=== PATIENT | male | born 1960 | race African-American/Black ===

== ENCOUNTER 2019-09-11 11:56 | Emergency (ER) | payer MEDICARE, MEDICAID, SELFPAY ==
[2019-09-11] VITALS (7 sets, daily range): BP systolic 127–152; BP diastolic 84–89; PULSE 47–59; RESP 10–20; TEMP 36–36.5; O2SAT 98–100
--- NOTE | ~2019-09-11 | XR_ITS ---
EXAMINATION: XR chest 1V portable DATE: 09/11/2019 12:20 INDICATION: Altered mental status TECHNIQUE: frontal view of the chest was obtained. COMPARISON: Chest radiograph dated 03/03/2019 FINDINGS: Lung volumes remain small. Mild bibasilar opacities increased since the prior study. No pleural effus ion or pneumothorax. The cardiomediastinal silhouette is normal. Mild to moderate thoracic spondylosi s. IMPRESSION: 1. Small lung volumes with increasing bibasilar opacities which could represent atelectasis, mild pul monary edema or pneumonia. Reviewed, dictated and finalized at location A. IMPRESSION: 1. Small lung volumes with increasing bibasilar opacities which could represent atelectasis, mild pulmonary edema or pneumonia.
--- NOTE | ~2019-09-11 | CT_ITS ---
EXAMINATION: CT brain wo con DATE: 09/11/2019 12:31 INDICATION: Altered mental status TECHNIQUE: Computed tomography (CT) of the head was performed without intravenous contrast. Sagittal and coronal reconstructions were performed. The mA was adjusted according to patient size. Iterative reconstruction technique was employed. The dose-length product was 605.33 mGy-cm. COMPARISON: None FINDINGS: No acute intracranial hemorrhage, acute infarction or abnormal extra axial fluid collection. Ventricl es are normal and symmetric. No mass/mass effect. Symmetric either atherosclerotic or age-related dys trophic calcifications at the the bilateral basal ganglia. The orbits, paranasal sinuses and mastoid air cells are normal. Intracranial calcified cerebral atherosclerosis is noted at the carotid siphons . IMPRESSION: 1. Normal aging brain. No acute intracranial process. Reviewed, dictated and finalized at location A.
--- NOTE | 2019-09-11 12:02 | ED.GENADULT ---
HPI - General Adult General Chief complaint: Unspecified <Souleymane Wang MD - Last Filed: 09/11/19 23:52> Stated complaint: unresponsive- catatonic schiz <Souleymane Wang MD - Last Filed: 09/11/19 23:52> Time Seen by Provider: 09/11/19 12:01 <Souleymane Wang MD - Last Filed: 09/11/19 23:52> Source: EMS and RN notes reviewed <Souleymane Wang MD - Last Filed: 09/11/19 23:52> Mode of arrival: EMS <Souleymane Wang MD - Last Filed: 09/11/19 23:52> Limitations: clinical condition <Souleymane Wang MD - Last Filed: 09/11/19 23:52> History of Present Illness HPI narrative: Pt is a 59 y/o male with a Hx of catatonic schizophrenia, who presents to the ED via EMS with c/o unresponsiveness. He is currently non-verbal while in the ED bed. HPI limited due to the pt's clinical condition. <Souleymane Wang MD - Last Filed: 09/11/19 23:52> MD complaint: Unresponsiveness <Souleymane Wang MD - Last Filed: 09/11/19 23:52> Onset (ago): unknown <Souleymane Wang MD - Last Filed: 09/11/19 23:52> Associated symptoms: other (unobtainable) <Souleymane Wang MD - Last Filed: 09/11/19 23:52> Related Data Allergies/adverse reactions: Allergies Allergy/AdvReac Type Severity Reaction Status Date / Time No Known Allergies Allergy Verified 09/11/19 13:01 <Souleymane Wang MD - Last Filed: 09/11/19 23:52> Review of Systems Review of Systems: ROS unobtainable: Yes other (Complete ROS unobtainable due to the pt's clinical condition.) <Souleymane Wang MD - Last Filed: 09/11/19 23:52> Neurologic: Reports other (unresponsiveness (per EMS)) <Souleymane Wang MD - Last Filed: 09/11/19 23:52> [facility] Past Medical History Medical History: Medical History Catatonic schizophrenia DM (diabetes mellitus) H/O: HTN (hypertension) Sepsis Shingles UTI (urinary tract infection) <Souleymane Wang MD - Last Filed: 09/11/19 23:52> Surgical History Surgical History: Surgical History No history of previous surgery <Souleymane Wang MD - Last Filed: 09/11/19 23:52> Social History Social History: Social History Smoking status: Unknown if ever smoked <Souleymane Wang MD - Last Filed: 09/11/19 23:52> Exam Narrative: Exam Narrative: GENERAL: Well-appearing, well-nourished, and in no acute distress. HEAD: Normocephalic, atraumatic. ENT: Mucous membranes moist. CHEST: Clear to auscultation. No respiratory distress. HEART: Bradycardic and regular. Normal peripheral pulses. ABDOMEN: Soft, nontender, nondistended. EXTREMITIES: Normal range of motion. Difficult to assess strength as pt will not follow commands. He does keep his arms in the air when they are lifted and he pulls his legs back from pain. SKIN: Warm, dry, no rash. Medication patch to the the left shoulder, right arm, and midline neck. Resolving shingles right chest wall with scabs. NEURO: Awake and alert, responds to pain. PSYCH: Catatonic, will not answer questions.. <Souleymane Wang MD - Last Filed: 09/11/19 23:52> Course Reevaluation(s) Reevaluation #1: Resting quitely in ED bed. Awaiting placement in inpatient psychiatric facility <Celso Suero MD - Last Filed: 09/12/19 05:58> Pt is awake, alert, conversant slightly, and tolerating oral intake. No acute distress. Continues to await crisis reassessment. <Shanae Whitley MD - Last Filed: 09/12/19 10:39> Date: 09/12/19 <Celso Suero MD - Last Filed: 09/12/19 05:58> 09/12/19 <Shanae Whitley MD - Last Filed: 09/12/19 10:39> Time: 05:58 <Celso Suero MD - Last Filed: 09/12/19 05:58> 08:00 <Shanae Whitley MD - Last Filed: 09/12/19 10:39> Reevaluation #2: Pt is awake, conversant, ambulatory in the ED. No thoughts
[2019-09-11 12:43] LABS: Basophils Percent Auto 0.4 % (0.2-1.2); Eosinophils Absolute Auto 0.1 K/mm3 (0-0.3); Eosinophils Percent Auto 1.1 % (0-4.4); Hematocrit 42.8 % (42.0-52.0); Hemoglobin 12.9 g/dL (14.0-18.0); Immature Granulocyte Absolute 0.02 K/mm3 (0.00-0.031); Immature Granulocyte Percent A 0.3 % (0-0.5); Lymphocytes Absolute Auto 2.41 K/mm3 (0.9-3.2); Lymphocytes Percent Auto 32.9 % (18.3-44.2); Mean Corpuscular HGB Conc 30.1 g/dl (32-36); Mean Corpuscular Hemoglobin 27.3 pg (26-34); Mean Corpuscular Volume 90.7 fl (80-100); Mean Platelet Volume 10.8 fl (7.4-10.4); Monocytes Absolute Auto 0.7 K/mm3 (0.1-0.6); Monocytes Percent Auto 10.1 % (2.6-8.5); Neutrophils Absolute Auto 4.1 K/mm3 (1.3-6.7); Neutrophils Percent Auto 55.2 % (45.5-73.1); Platelet Count Result 219 k/mm3 (150-375); Red Blood Count 4.72 M/mm3 (4.6-6.20); Red Cell Distribution Width 14.5 % (11.5-14.5); White Blood Count 7.3 K/mm3 (4.5-10.0)
[2019-09-11 12:46] LABS: Alanine Aminotransferase 11 U/L (4-50); Albumin Level 3.9 g/dL (3.5-5.1); Alkaline Phosphatase 54 U/L (38-126); Aspartate Amino Transferase 23 U/L (17-59); Bilirubin,Total 0.5 mg/dL (0.2-1.3); Blood Urea Nitrogen 26 mg/dL (9-20); Calcium 8.8 mg/dL (8.4-10.2); Carbon Dioxide 26 mmol/L (22-30); Chloride 103 mmol/L (98-107); Estimated CRCL calculation 89 ml/min; Estimated Glomerular Filt Rate > 60; Glucose 85 mg/dL (75-110); Potassium 4.1 mmol/L (3.4-5.0); Sodium 139 mmol/L (137-145)
[2019-09-11 12:55] LABS: Ethanol < 10 mg/dL (<10)
[2019-09-11 13:08] LABS: Add Urine Microscopic? YES; Appearance Urine Clear (Clear); Bilirubin Urine Negative (Negative); Blood Urine Negative (Negative); Color Urine Straw (Yellow); Glucose Urine UA Negative (Negative); Ketones Urine Negative (Negative); Leukocyte Esterase Ur Negative LEU/UL (Negative); Mucus Urine Rare /lpf; Nitrate Urine Negative (Negative); Protein Urine Negative (Negative); RBC Urine 0-2 /hpf (0-2); Specific Grav Ur 1.018 (1.001-1.035); Urobilinogen Urine Negative mg/dL (<2.0); WBC Urine 0-3 /hpf
[2019-09-11 13:32] LABS: Amphetamine Screen Urine Negative (Negative); Barbiturate Screen Urine Negative (Negative); Benzodiazepines Screen Urine Negative (Negative); Cannabinoid Screen Urine Negative (Negative); Cocaine Screen Urine Negative (Negative); Methadone Screen Urine Negative (Negative); Opiate Screen Urine Negative (Negative); Phencyclidine Screen Urine Negative (Negative)
[2019-09-11 13:37] LABS: NT Pro B Type Natriuretic Pept 535 PG/ML (5-100)
--- NOTE | 2019-09-11 14:37 | PC.NURSE ---
Pt more responsive. Able to follow my finger and track it appropriately. Nods yes or no answers but still is non verbal. When asked if he is able to speak, pt nods no . Able to move hands and wiggle toes on command as well but unable to raise them. Md notifed of pt status change.
--- NOTE | 2019-09-11 18:51 | PC.NURSE ---
Pt no longer responding to voice or physical stimulation. Eyes downcast and not following commands. VSS. notified.
--- NOTE | 2019-09-11 20:22 | PC.NURSE ---
Attempted to contact [place] with no success.
--- NOTE | 2019-09-11 21:20 | PC.NURSE ---
Pt awake and answering questions appropriate at this time. Pt has no complaints. Pt is A&Ox3, pink warm and dry and denies any pain at this time.
--- NOTE | 2019-09-12 | PC.NURSE ---
Called [facility] to check on pt status to find placement and they informed me that serafin never recieved paperwork. Pt chart sent again to [facility]. ERP aware.
[2019-09-12 01:08] VITALS: BP 133/91; PULSE 52; RESP 18; O2SAT 100
--- NOTE | 2019-09-12 01:38 | PC.NURSE ---
[facility] called back and spoke with Hattie HEWITT. She stated that they are unable to meet the needs of this pt due to the acuity in their unit. ERP aware.
[2019-09-12 03:58] VITALS: BP 137/86; PULSE 50; RESP 18; O2SAT 100
[2019-09-12 05:27] VITALS: BP 138/84; PULSE 47; RESP 18; O2SAT 100
--- NOTE | 2019-09-12 06:45 | PC.NURSE ---
Pt up to use restroom at this time. Pt ambulated fine without assistance. Pt is A&Ox3, pink warm and dry and denies any pain.
[2019-09-12 07:34] VITALS: BP 143/86; PULSE 54; RESP 20; O2SAT 100
[2019-09-12 12:51] VITALS: BP 154/91; PULSE 61; O2SAT 91; O2SAT 94
== END 2019-09-12 12:54 | disposition home or self-care (01) ==
PROVIDERS: Emergency Medicine; Emergency Provider Emergency Medicine
DX: F20.2 Catatonic schizophrenia (principal); E11.9 Type 2 diabetes mellitus without complications; I10 Essential (primary) hypertension; Z87.440 Personal history of urinary (tract) infections; R91.8 Other nonspecific abnormal finding of lung field
CPT/HCPCS: 36415; 70450; 71045; 80053; 80307; 81001; 83880; 84443; 85025; 99284

== ENCOUNTER 2020-03-15 11:06 | Emergency (ER) | payer MEDICARE, MEDICAID, SELFPAY ==
--- NOTE | 2020-03-15 11:19 | ED.PSYCH ---
HPI - Psych General Chief Complaint: Psychiatric Symptoms Stated Complaint: HTN Time Seen by Provider: 03/15/20 11:19 History of Present Illness HPI Narrative: 60 yo male w/ h/o schizophrenia brought in by EMS from [facility] for agitation and htn. He was apparently released from an inpatient psychiatric facility 2 dyas ago. Today he was thought to be manic and they noted elevated blood pressor. It is not clear if they did anything to treat this. On arrival here the pateint is agitated and not providing any history. History limited by psychiatric condition. Related Data Allergies Allergy/AdvReac Type Severity Reaction Status Date / Time No Known Allergies Allergy Verified 09/11/19 13:01 Review of Systems Review of Systems: ROS unobtainable: Yes other (unable to obtain due to psychiatric illness) [facility] Past Medical History Medical History Catatonic schizophrenia DM (diabetes mellitus) H/O: HTN (hypertension) Sepsis Shingles UTI (urinary tract infection) Surgical History Surgical History No history of previous surgery Social History Social History Smoking status: Unknown if ever smoked Exam Const: General: alert Nutritional Appearance: well nourished Other: agitated HENMT: Head: normal to inspection Eyes: Pupils: Equal, round and reactive pupils present Resp: Effort & Inspection: normal respiratory effort Auscultation: clear to auscultation bilaterally Cardio: Rate: tachycardic Rhythm: regular rhythm GI: Inspection: non-distended GI Palp: Yes Soft to palpation and No Tenderness to palpation present (GI) Skin: General skin exam: normal color Neuro: General: moves all extremities and no focal motor deficits Gait exam (Neuro): Normal gait present Extrem: General: normal to inspection Psych: Other: He is agitated and will not sit still. He repeatedly shakes his arms and legs. Course Vital Signs Vital signs: Vital Signs Pulse Rate 112 H 03/15/20 11:30 Respiratory Rate 18 03/15/20 11:30 Blood Pressure 148/85 H 03/15/20 11:30 Pulse Oximetry 98 03/15/20 11:30 Pulse Rate 74 03/15/20 14:57 Respiratory Rate 22 H 03/15/20 14:57 Blood Pressure 119/81 03/15/20 14:57 Pulse Oximetry 97 03/15/20 14:57 MDM - Psych MDM Narrative Medical decision making narrative: This could either be behavior related to his chronic psychiatric condition or benzodiazepine withdrawal. Vitals and behavior normalized with Haldol and Ativan. I have no reason for medical admission at this time and given his 2 recent psychiatric admissions I do not believe that he would benefit from psychiatric placement either. Medical Records Attestation: I reviewed the patient's medical records. Lab Data Attestation: I reviewed the patient's lab results. Result diagrams: 03/15/20 11:47 03/15/20 11:47 Labs: Lab Results 03/15/20 03/15/20 03/15/20 Range/Units 11:47 11:47 11:54 WBC 8.3 (4.5-10.0) K/mm3 RBC 4.38 L (4.6-6.20) M/mm3 Hgb 12.2 L (14.0-18.0) g/dL Hct 38.3 L (42.0-52.0) % MCV 87.4 (80-100) fl MCH 27.9 (26-34) pg MCHC 31.9 L (32-36) g/dl RDW 13.6 (11.5-14.5) % Plt Count 206 (150-375) k/mm3 MPV 10.1 (7.4-10.4) fl Immature Gran % (Auto) 0.4 (0-0.5) % Neut % (Auto) 56.1 (45.5-73.1) % Lymph % (Auto) 31.7 (18.3-44.2) % [place] % (Auto) 11.0 H (2.6-8.5) % Eos % (Auto) 0.6 (0-4.4) % Baso % (Auto) 0.2 (0.2-1.2) % Lymph # (Auto) 2.64 (0.9-3.2) K/mm3 [place] # (Auto) 0.9 H (0.1-0.6) K/mm3 Eos # (Auto) 0.1 (0-0.3) K/mm3 Baso # (Auto) 0.0 (0.0-0.1) K/mm3 Abs Immat Gran (auto) 0.03 (0.00-0.031) K/mm3 Absolute Neuts (auto) 4.7 (1.3-6.7) K/mm3 Absolute Nucleated RBC 0.0 (0.0-0.012) K/mm3 Nucleat
[2020-03-15 11:30] VITALS: BP 148/85; PULSE 112; RESP 18; O2SAT 98
[2020-03-15] MEDS: HALOPERIDOL LACTATE 5 MG/ML VIAL (11:43)
[2020-03-15] MEDS: LORazepam INJ (*CRX) 2 MG/ML VIAL ×2 (11:43→11:44)
[2020-03-15 11:53] LABS: Basophils Percent Auto 0.2 % (0.2-1.2); Eosinophils Absolute Auto 0.1 K/mm3 (0-0.3); Eosinophils Percent Auto 0.6 % (0-4.4); Hematocrit 38.3 % (42.0-52.0); Hemoglobin 12.2 g/dL (14.0-18.0); Immature Granulocyte Absolute 0.03 K/mm3 (0.00-0.031); Immature Granulocyte Percent A 0.4 % (0-0.5); Lymphocytes Absolute Auto 2.64 K/mm3 (0.9-3.2); Lymphocytes Percent Auto 31.7 % (18.3-44.2); Mean Corpuscular HGB Conc 31.9 g/dl (32-36); Mean Corpuscular Hemoglobin 27.9 pg (26-34); Mean Corpuscular Volume 87.4 fl (80-100); Mean Platelet Volume 10.1 fl (7.4-10.4); Monocytes Absolute Auto 0.9 K/mm3 (0.1-0.6); Neutrophils Absolute Auto 4.7 K/mm3 (1.3-6.7); Neutrophils Percent Auto 56.1 % (45.5-73.1); Platelet Count Result 206 k/mm3 (150-375); Red Blood Count 4.38 M/mm3 (4.6-6.20); Red Cell Distribution Width 13.6 % (11.5-14.5); White Blood Count 8.3 K/mm3 (4.5-10.0)
[2020-03-15 11:56] VITALS: BP 130/93; PULSE 119; RESP 24; O2SAT 98
[2020-03-15 12:05] LABS: Alanine Aminotransferase 15 U/L (4-50); Albumin Level 4.3 g/dL (3.5-5.1); Alkaline Phosphatase 67 U/L (38-126); Anion Gap 11 mmol/L (8-16); Aspartate Amino Transferase 35 U/L (17-59); Bilirubin,Total 0.5 mg/dL (0.2-1.3); Blood Urea Nitrogen 25 mg/dL (9-20); Calcium 9.2 mg/dL (8.4-10.2); Carbon Dioxide 24 mmol/L (22-30); Chloride 106 mmol/L (98-107); Estimated CRCL calculation 82 ml/min; Estimated Glomerular Filt Rate > 60; Glucose 94 mg/dL (75-110); Sodium 141 mmol/L (137-145)
[2020-03-15 12:05] LABS: Add Urine Microscopic? YES; Appearance Urine Clear (Clear); Bilirubin Urine Negative (Negative); Blood Urine 2+ (Negative); Color Urine Yellow (Yellow); Glucose Urine UA Negative (Negative); Ketones Urine Trace mg/dL (Negative); Leukocyte Esterase Ur Negative LEU/UL (Negative); Mucus Urine Rare /lpf; Nitrate Urine Negative (Negative); Protein Urine 1+ mg/dL (Negative); RBC Urine 0-2 /hpf (0-2); Squamous Epithelial Cell Urine Rare /hpf (Few); Urobilinogen Urine Negative mg/dL (<2.0); WBC Urine 0-3 /hpf
--- NOTE | 2020-03-15 12:13 | PC.NURSE ---
Patient is quiet and resting at this time in room.
[2020-03-15 12:14] LABS: Specific Grav Ur 1.031 (1.001-1.035)
[2020-03-15 12:17] LABS: Amphetamine Screen Urine Negative (Negative); Barbiturate Screen Urine Negative (Negative); Benzodiazepines Screen Urine Negative (Negative); Cannabinoid Screen Urine Negative (Negative); Cocaine Screen Urine Negative (Negative); Methadone Screen Urine Negative (Negative); Opiate Screen Urine Negative (Negative); Phencyclidine Screen Urine Negative (Negative)
[2020-03-15 12:35] VITALS: BP 123/73; PULSE 97; RESP 24; O2SAT 98
[2020-03-15 13:57] VITALS: BP 118/84; PULSE 79; RESP 20; O2SAT 100
--- NOTE | 2020-03-15 14:29 | PC.NURSE ---
1420-REPORT GIVEN TO ELYSSA AT [facility].
[2020-03-15 14:57] VITALS: BP 119/81; PULSE 74; RESP 22; O2SAT 97
[2020-03-15 16:10] VITALS: BP 140/96; PULSE 78; RESP 19; O2SAT 99
--- NOTE | 2020-03-23 07:18 | PC.NURSE ---
LATE ENTRY This note is being entered to document information to the patient's record. The following information was omitted on [03/15/20], by [Chary Vargas] patient received 4mg ativan and 5mg haldol per verbal order by EDP .
== END 2020-03-15 16:12 ==
PROVIDERS: Emergency Provider Emergency Medicine
DX: R45.1 Restlessness and agitation (principal); F20.2 Catatonic schizophrenia; E11.9 Type 2 diabetes mellitus without complications; I10 Essential (primary) hypertension; Z87.440 Personal history of urinary (tract) infections
CPT/HCPCS: 36415; 51701; 80053; 80307; 81001; 84443; 85025; 96374; 96375; 99284; J1630; J2060

== ENCOUNTER 2020-03-19 17:25 | Emergency (ER) | payer MEDICARE, MEDICAID, SELFPAY ==
[2020-03-19 17:23] VITALS: BP 125/83; PULSE 110; RESP 20; TEMP 36.7; O2SAT 98
[2020-03-19 18:05] VITALS: BP 129/94; PULSE 64; RESP 20; O2SAT 100
--- NOTE | 2020-03-19 18:07 | ED.GENADULT ---
HPI - General Adult General Chief complaint: Unspecified Stated complaint: n/v Time Seen by Provider: 03/19/20 17:28 History of Present Illness HPI narrative: Patient is a 60-year-old male with history of schizophrenia who presents the ER for agitation and inability to sleep. Apparently at his [facility] he became quite agitated and was having difficulty sleeping so they gave him some Ativan. They report that it took too long to work so he thought he would benefit from being seen in the emergency room. Patient is alert and oriented x3. He has no complaints at this time. He has some sweats along the upper part of his shirt that he cannot explain why it is there. Unsure if it is from being agitated and being held down. Related Data Allergies Allergy/AdvReac Type Severity Reaction Status Date / Time No Known Allergies Allergy Verified 03/19/20 17:32 Review of Systems Review of Systems: All systems reviewed & are unremarkable except as noted in HPI and below Constitutional: Constitutional: Denies chills, Denies fever(s) and Denies weakness ENT: Denies nasal congestion and Denies sore throat Cardiovascular: Cardiovascular: Denies chest pain Respiratory: Respiratory: Denies cough and Denies dyspnea Gastrointestinal: Gastrointestinal: Denies abdominal pain, Denies nausea and Denies vomiting PMFSH Social History Social History Smoking status: Unknown if ever smoked Exam Narrative: Exam Narrative: GENERAL: Well-appearing, well-nourished, and in no acute distress. HEAD: Normocephalic, atraumatic. ENT: Mucous membranes moist. Poor dentition, no evidence of new trauma/bleeding. CHEST: Clear to auscultation. No respiratory distress. HEART: Regular rate and rhythm. Normal peripheral pulses. ABDOMEN: Soft, nontender, nondistended. EXTREMITIES: Normal range of motion. No edema. SKIN: Warm, sweaty, no rash. NEURO: Alert and oriented x3. PSYCH: Flat affect, not agitated, does not seem to be responding to internal stimuli.. Course Course Emergency Course: Patient awake and alert. He is eating and drinking. He will be discharged back to his facility. No agitation here. Vital Signs Vital signs: Vital Signs Temperature 98.1 F 03/19/20 17:23 Pulse Rate 110 H 03/19/20 17:23 Respiratory Rate 20 03/19/20 17:23 Blood Pressure 125/83 03/19/20 17:23 Pulse Oximetry 98 03/19/20 17:23 Temperature 98.1 F 03/19/20 17:23 Pulse Rate 64 03/19/20 18:05 Respiratory Rate 20 03/19/20 18:05 Blood Pressure 129/94 H 03/19/20 18:05 Pulse Oximetry 100 03/19/20 18:05 Medical Decision Making Vital Signs Vital Signs: Vital Signs Temperature 98.1 F 03/19/20 17:23 Pulse Rate 110 H 03/19/20 17:23 Respiratory Rate 20 03/19/20 17:23 Blood Pressure 125/83 03/19/20 17:23 Pulse Oximetry 98 03/19/20 17:23 Temperature 98.1 F 03/19/20 17:23 Pulse Rate 64 03/19/20 18:05 Respiratory Rate 20 03/19/20 18:05 Blood Pressure 129/94 H 03/19/20 18:05 Pulse Oximetry 100 03/19/20 18:05 Lab Data Result diagrams: 03/19/20 18:01 03/19/20 18:01 Labs: Lab Results 03/19/20 03/19/20 03/19/20 Range/Units 18:01 18:01 18:01 WBC 10.6 H (4.5-10.0) K/mm3 RBC 4.42 L (4.6-6.20) M/mm3 Hgb 12.4 L (14.0-18.0) g/dL Hct 38.6 L (42.0-52.0) % MCV 87.3 (80-100) fl MCH 28.1 (26-34) pg MCHC 32.1 (32-36) g/dl RDW 13.2 (11.5-14.5) % Plt Count 192 (150-375) k/mm3 MPV 10.8 H (7.4-10.4) fl Immature Gran % (Auto) 0.5 (0-0.5) % Neut % (Auto) 67.4 (45.5-73.1) % Lymph % (Auto) 20.7 (18.3-44.2) % [place] % (Auto) 11.1 H (2.6-8.5) % Eos % (Auto) 0.0 (0-4.4) % Baso % (Auto) 0.3 (0.2-1.2) % Lymph # (Auto) 2.20 (0.9-3.2) K/mm3 [place] # (Auto) 1.2 H (0.1-0.6) K/mm3 Eos # (Auto) 0.0 (0-0.3) K/mm3 Baso # (Auto) 0.0 (0.0-0.1) K/mm3 Ab
[2020-03-19 18:13] LABS: Basophils Percent Auto 0.3 % (0.2-1.2); Hematocrit 38.6 % (42.0-52.0); Hemoglobin 12.4 g/dL (14.0-18.0); Immature Granulocyte Absolute 0.05 K/mm3 (0.00-0.031); Immature Granulocyte Percent A 0.5 % (0-0.5); Lymphocytes Percent Auto 20.7 % (18.3-44.2); Mean Corpuscular HGB Conc 32.1 g/dl (32-36); Mean Corpuscular Hemoglobin 28.1 pg (26-34); Mean Corpuscular Volume 87.3 fl (80-100); Mean Platelet Volume 10.8 fl (7.4-10.4); Monocytes Absolute Auto 1.2 K/mm3 (0.1-0.6); Monocytes Percent Auto 11.1 % (2.6-8.5); Neutrophils Absolute Auto 7.2 K/mm3 (1.3-6.7); Neutrophils Percent Auto 67.4 % (45.5-73.1); Platelet Count Result 192 k/mm3 (150-375); Red Blood Count 4.42 M/mm3 (4.6-6.20); Red Cell Distribution Width 13.2 % (11.5-14.5); White Blood Count 10.6 K/mm3 (4.5-10.0)
[2020-03-19 18:19] LABS: Add Urine Microscopic? YES; Appearance Urine Clear (Clear); Bilirubin Urine Negative (Negative); Blood Urine 2+ (Negative); Color Urine Yellow (Yellow); Glucose Urine UA Negative (Negative); Ketones Urine 1+ mg/dL (Negative); Leukocyte Esterase Ur Negative LEU/UL (Negative); Mucus Urine Rare /lpf; Nitrate Urine Negative (Negative); Protein Urine 1+ mg/dL (Negative); Specific Grav Ur 1.025 (1.001-1.035); Urobilinogen Urine Negative mg/dL (<2.0); WBC Urine 0-3 /hpf
[2020-03-19 18:24] LABS: Anion Gap 11 mmol/L (8-16); Blood Urea Nitrogen 29 mg/dL (9-20); Calcium 9.7 mg/dL (8.4-10.2); Carbon Dioxide 25 mmol/L (22-30); Chloride 105 mmol/L (98-107); Estimated Glomerular Filt Rate > 60; Glucose 98 mg/dL (75-110); Potassium 4.1 mmol/L (3.4-5.0); Sodium 141 mmol/L (137-145)
[2020-03-19 19:28] VITALS: BP 133/64; PULSE 82; RESP 20; O2SAT 99
[2020-03-20 04:40] VITALS: BP 133/77; PULSE 68; RESP 16; O2SAT 99
== END 2020-03-20 04:41 ==
PROVIDERS: Emergency Provider Emergency Medicine
DX: F91.9 Conduct disorder, unspecified (principal); F20.9 Schizophrenia, unspecified
CPT/HCPCS: 36415; 51701; 80048; 81001; 85025; 99283

== ENCOUNTER 2020-07-06 15:16 | Emergency (ER) | payer MEDICARE, MEDICAID, SELFPAY ==
--- NOTE | ~2020-07-06 | XR_ITS ---
EXAMINATION: XR chest 1V portable INDICATION: Transient alteration of awareness, hypertension and diabetes TECHNIQUE: Portable AP chest at 1734 hours COMPARISON: 09/11/2019 FINDINGS: There are airspace opacities of the lung bases, right radial the left. No pleural effusion or pneumothorax is identified. The cardiomediastinal silhouette is normal. IMPRESSION: 1. Bibasilar airspace opacities, consistent with atelectasis versus pneumonia. Reviewed, dictated and finalized at location A. L CONSTRUCTION WORKER
[2020-07-06 15:24] VITALS: PULSE 56; RESP 19; TEMP 36.7; O2SAT 99
[2020-07-06 17:10] VITALS: BP 137/69; PULSE 62; RESP 18; O2SAT 100
--- NOTE | 2020-07-06 17:15 | ECG_ITS ---
Measurements Intervals [place] Rate: 55 P: 43 TX: 163 QRS: 1 QRSD: 111 T: 233 QT: 442 QTc: 423 Interpretive Statements SINUS BRADYCARDIA POSSIBLE LEFT ATRIAL ENLARGEMENT INCOMPLETE RIGHT BUNDLE BRANCH BLOCK DELAYED PRECORDIAL R/S TRANSITION ST-T WAVE ABNORMALITY IN INF/LAT LEADS- CONSIDER ISCHEMIA ABNORMAL ECG Electronically Signed On 07-06-2020 18:04:48 CLOTH GRADER by Memo Iverson D.O.
--- NOTE | 2020-07-06 17:40 | ED.GENADULT ---
HPI - General Adult General Chief complaint: Unspecified Stated complaint: AMS Time Seen by Provider: 07/06/20 17:09 Source: patient and EMS Mode of arrival: EMS Limitations: no limitations History of Present Illness HPI narrative: Patient is a 60-year-old male who presents from [facility] after having a brief Related Data Allergies Allergy/AdvReac Type Severity Reaction Status Date / Time No Known Allergies Allergy Verified 03/19/20 17:32 [facility] Past Medical History Medical History (Updated 07/06/20 @ 20:19 by Martínez Rodriguez PA-C) Catatonic schizophrenia DM (diabetes mellitus) H/O: HTN (hypertension) Sepsis Shingles UTI (urinary tract infection) Surgical History Surgical History No history of previous surgery Social History Social History Smoking status: Unknown if ever smoked Course Vital Signs Vital signs: Vital Signs Temperature 98.1 F 07/06/20 15:24 Pulse Rate 56 L 07/06/20 15:24 Respiratory Rate 19 07/06/20 15:24 Pulse Oximetry 99 07/06/20 15:24 Temperature 98.1 F 07/06/20 15:24 Pulse Rate 51 L 07/06/20 19:45 Respiratory Rate 15 07/06/20 19:45 Blood Pressure 120/83 07/06/20 19:45 Pulse Oximetry 99 07/06/20 19:45 Medical Decision Making MDM Narrative Medical decision making narrative: Patient evaluated in the emergency department since arriving in the emergency department patient has had no complaints patient was evaluated and will be discharged back to the correction for further evaluation at the correction patient feels comfortable with this is requesting to return home patient is afebrile nontoxic-appearing no distress at this time. Patient with unremarkable evaluation has been asymptomatic in the emergency department feels comfortable going home patient with EKG changes that are changed from prior EKG felt appropriate for outpatient reevaluation by primary care. Case discussed with my attending who recommends outpatient re-evalauation and risk stratification. Patient is without any upper respiratory symptoms pneumonia felt unlikely. Patient is afebrile resting comfortably in the room denying any pain or symptoms Vital Signs Vital Signs: Vital Signs Temperature 98.1 F 07/06/20 15:24 Pulse Rate 56 L 07/06/20 15:24 Respiratory Rate 19 07/06/20 15:24 Pulse Oximetry 99 07/06/20 15:24 Temperature 98.1 F 07/06/20 15:24 Pulse Rate 51 L 07/06/20 19:45 Respiratory Rate 15 07/06/20 19:45 Blood Pressure 120/83 07/06/20 19:45 Pulse Oximetry 99 07/06/20 19:45 Lab Data Result diagrams: 07/06/20 18:18 07/06/20 18:18 Labs: Lab Results 07/06/20 07/06/20 07/06/20 Range/Units 17:57 18:18 18:18 WBC 8.3 (4.5-10.0) K/mm3 RBC 4.91 (4.6-6.20) M/mm3 Hgb 13.6 L (14.0-18.0) g/dL Hct 43.9 (42.0-52.0) % MCV 89.4 (80-100) fl MCH 27.7 (26-34) pg MCHC 31.0 L (32-36) g/dl RDW 14.7 H (11.5-14.5) % Plt Count 213 (150-375) k/mm3 MPV 10.6 H (7.4-10.4) fl Immature Gran % (Auto) 0.4 (0-0.5) % Neut % (Auto) 65.5 (45.5-73.1) % Lymph % (Auto) 25.9 (18.3-44.2) % [place] % (Auto) 6.5 (2.6-8.5) % Eos % (Auto) 1.5 (0-4.4) % Baso % (Auto) 0.2 (0.2-1.2) % Lymph # (Auto) 2.14 (0.9-3.2) K/mm3 [place] # (Auto) 0.5 (0.1-0.6) K/mm3 Eos # (Auto) 0.1 (0-0.3) K/mm3 Baso # (Auto) 0.0 (0.0-0.1) K/mm3 Abs Immat Gran (auto) 0.03 (0.00-0.031) K/mm3 Absolute Neuts (auto) 5.4 (1.3-6.7) K/mm3 Absolute Nucleated RBC 0.0 (0.0-0.012) K/mm3 Nucleated RBC % 0.0 (0.0-0.2) % PT (11.1-14.7) Seconds INR APTT (22.3-36.8) SECONDS Sodium 139 (137-145) mmol/L Potassium 4.5 (3.4-5.0) mmol/L Chloride 104 (98-107) mmol/L Carbon Dioxide 28 (22-30) mmol/L Anion Gap 7 L (8-16)
[2020-07-06 18:10] LABS: Add Urine Microscopic? YES; Appearance Urine Clear (Clear); Bilirubin Urine Negative (Negative); Blood Urine 2+ (Negative); Color Urine Straw (Yellow); Glucose Urine UA Negative (Negative); Ketones Urine Negative (Negative); Leukocyte Esterase Ur Negative LEU/UL (Negative); Nitrate Urine Negative (Negative); Protein Urine Negative (Negative); Urobilinogen Urine Negative mg/dL (<2.0); WBC Urine 0-3 /hpf
[2020-07-06 18:25] LABS: Basophils Percent Auto 0.2 % (0.2-1.2); Eosinophils Absolute Auto 0.1 K/mm3 (0-0.3); Eosinophils Percent Auto 1.5 % (0-4.4); Hematocrit 43.9 % (42.0-52.0); Hemoglobin 13.6 g/dL (14.0-18.0); Immature Granulocyte Absolute 0.03 K/mm3 (0.00-0.031); Immature Granulocyte Percent A 0.4 % (0-0.5); Lymphocytes Absolute Auto 2.14 K/mm3 (0.9-3.2); Lymphocytes Percent Auto 25.9 % (18.3-44.2); Mean Corpuscular Hemoglobin 27.7 pg (26-34); Mean Corpuscular Volume 89.4 fl (80-100); Mean Platelet Volume 10.6 fl (7.4-10.4); Monocytes Absolute Auto 0.5 K/mm3 (0.1-0.6); Monocytes Percent Auto 6.5 % (2.6-8.5); Neutrophils Absolute Auto 5.4 K/mm3 (1.3-6.7); Neutrophils Percent Auto 65.5 % (45.5-73.1); Platelet Count Result 213 k/mm3 (150-375); Red Blood Count 4.91 M/mm3 (4.6-6.20); Red Cell Distribution Width 14.7 % (11.5-14.5); White Blood Count 8.3 K/mm3 (4.5-10.0)
[2020-07-06 18:34] LABS: INR 2.3; Prothrombin Time 25.9 Seconds (11.1-14.7)
[2020-07-06 18:35] LABS: Partial Thromboplastin Time 35.4 SECONDS (22.3-36.8)
[2020-07-06 18:36] LABS: Anion Gap 7 mmol/L (8-16); Blood Urea Nitrogen 19 mg/dL (9-20); Calcium 9.2 mg/dL (8.4-10.2); Carbon Dioxide 28 mmol/L (22-30); Chloride 104 mmol/L (98-107); Estimated CRCL calculation 93 ml/min; Estimated Glomerular Filt Rate > 60; Glucose 108 mg/dL (75-110); Potassium 4.5 mmol/L (3.4-5.0); Sodium 139 mmol/L (137-145)
[2020-07-06 18:48] LABS: Troponin I < 0.012 ng/mL (0.000-0.034)
[2020-07-06 19:45] VITALS: BP 120/83; PULSE 51; RESP 15; O2SAT 99
[2020-07-06 21:16] LABS: Troponin I < 0.012 ng/mL (0.000-0.034)
--- NOTE | 2020-07-06 21:27 | PC.NURSE ---
updated eta from [facility] [phone]
[2020-07-07 00:16] VITALS: BP 118/82; PULSE 52; RESP 18; O2SAT 97
[2020-07-07 04:01] VITALS: BP 136/81; PULSE 44; RESP 18; O2SAT 99
--- NOTE | 2020-07-07 05:18 | PC.NURSE ---
[facility] ETA [phone]
[2020-07-07 06:50] VITALS: BP 136/85; PULSE 50; RESP 18; O2SAT 98
[2020-07-07 08:06] VITALS: BP 105/82; PULSE 50; RESP 20; O2SAT 100
[2020-07-07 08:17] VITALS: BP 105/82; PULSE 50; RESP 20; O2SAT 100
== END 2020-07-07 08:19 ==
PROVIDERS: Emergency Medicine Emergency Medical Services; Emergency Provider Emergency Medicine
DX: R40.4 Transient alteration of awareness (principal); E11.9 Type 2 diabetes mellitus without complications; I10 Essential (primary) hypertension; Z87.440 Personal history of urinary (tract) infections; R00.1 Bradycardia, unspecified; I45.10 Unspecified right bundle-branch block; R94.31 Abnormal electrocardiogram [ECG] [EKG]; R91.8 Other nonspecific abnormal finding of lung field
CPT/HCPCS: 36415; 71045; 80048; 81001; 84484; 85025; 85610; 85730; 93005; 99284

== ENCOUNTER 2020-08-23 01:11 | Emergency (ER) | payer MEDICARE, MEDICAID, SELFPAY ==
--- NOTE | ~2020-08-23 | CT_ITS ---
EXAMINATION: CT brain wo con INDICATION: Head injury COMPARISON: 09/11/2019 TECHNIQUE: Standard unenhanced head CT. The dose-length product (DLP) was 681.00 mGy-cm. The mA was a djusted according to patient size. Iterative reconstruction technique was employed. FINDINGS: There is no intracranial hemorrhage, acute infarction, or abnormal mass lesion. The ventric les are normal. There is no abnormal mass effect or midline shift. The alfaro-white matter differentiat ion is normal. The basal cisterns are patent. The orbits are normal. The paranasal sinuses, mastoids and calvarium are normal. IMPRESSION: 1. No acute intracranial abnormality. Reviewed, dictated and finalized at location A. PREPARER [employer]ER
[2020-08-23 01:17] VITALS: BP 187/82; PULSE 131; RESP 27; TEMP 36.6; O2SAT 96
[2020-08-23] MEDS: HALOPERIDOL LACTATE 5 MG/ML VIAL (01:25)
--- NOTE | 2020-08-23 01:36 | ED.HEATRA ---
HPI - Head Injury General Chief complaint: Fall Stated complaint: hit head and on blood thinners Time Seen by Provider: 08/23/20 01:27 History of Present Illness HPI Narrative: 60 yo male w/ h/o catatonic schizophrenia, DM presents to the ED for a head injury. He reportedly struck his head against the wall while getting into bed. He had no complaints and did not want to come, but per the residential protocol he had to come be evaluated. He is reportedly on warfarin. He is not answering any questions at this time. This is not unusual for him. EMS glucose was normal. Related Data Allergies Allergy/AdvReac Type Severity Reaction Status Date / Time No Known Allergies Allergy Verified 03/19/20 17:32 Review of Systems Review of Systems: ROS unobtainable: Yes other (psychiatric illness) PMFSH Past Medical History Medical History Catatonic schizophrenia DM (diabetes mellitus) H/O: HTN (hypertension) Sepsis Shingles UTI (urinary tract infection) Surgical History Surgical History No history of previous surgery Social History Social History Smoking status: Unknown if ever smoked Gender identity (if verbalized by the patient): Male Exam Const: General: no acute distress, alert and diaphoretic HENMT: Head: normal to inspection, no contusions, no hematomas and no lacerations Ears: external ears normal Eyes: Conjunctivae: conjunctivae normal Pupils: Equal, round and reactive pupils present EOM: EOMs intact bilaterally Neck: Neck: normal visual inspection Resp: Effort & Inspection: normal respiratory effort Auscultation: clear to auscultation bilaterally Cardio: Rate: tachycardic Rhythm: regular rhythm GI: GI Palp: Yes Soft to palpation and No Tenderness to palpation present (GI) Skin: General skin exam: normal color Wounds: no wounds Neuro: General: moves all extremities Other: 5/5 strength through out Extrem: General: normal to inspection and no edema Psych: Other: anxious/agitated Course Vital Signs Vital signs: Vital Signs Temperature 36.6 C 08/23/20 01:17 Pulse Rate 131 H 03/10/21 01:17 Respiratory Rate 27 H 08/23/20 01:17 Blood Pressure 187/82 H 08/23/20 01:17 Pulse Oximetry 96 08/23/20 01:17 Temperature 36.6 C 08/23/20 01:17 Pulse Rate 114 H 08/23/20 02:32 Respiratory Rate 17 08/23/20 02:32 Blood Pressure 147/94 H 08/23/20 02:32 Pulse Oximetry 97 08/23/20 02:32 MDM - Head Injury MDM Narrative Medical decision making narrative: He seems to have suffered a very minor head injury. Evaluation is a bit limited by the fact that he is not willing/able to participate in the exam or history in any meaningful way. Medical Records Attestation: I reviewed the patient's medical records. Imaging Data My impression: Negative for acute injury. Discharge Plan Discharge Clinical Impression: Closed head injury Qualifiers: Encounter type: initial encounter Qualified Code(s): S09.90XA - Unspecified injury of head, initial encounter Condition: Stable Instructions: Head Injury (ED) Follow-up/Referrals: PHYSICIAN,EXECUTIVE VICE PRESIDENT OF SALES [Non-Staff] -
[2020-08-23 02:32] VITALS: BP 147/94; PULSE 114; RESP 17; O2SAT 97
--- NOTE | 2020-08-23 02:44 | PC.NURSE ---
made contact with [facility] to transfer patient home to [facility]. [facility] accepted with an eta of [phone]
--- NOTE | 2020-08-23 04:07 | PC.NURSE ---
paige has arrived
[2020-08-23 04:08] VITALS: BP 152/90; PULSE 106; RESP 17; O2SAT 98
== END 2020-08-23 04:10 | disposition home or self-care (01) ==
PROVIDERS: Emergency Provider Emergency Medicine
DX: S09.90XA Unspecified injury of head, initial encounter (principal); F20.2 Catatonic schizophrenia; E11.9 Type 2 diabetes mellitus without complications; I10 Essential (primary) hypertension; W22.01XA Walked into wall, initial encounter
CPT/HCPCS: 70450; 99284; J1630

== ENCOUNTER 2020-09-25 15:01 | Emergency (ER) | payer MEDICARE, MEDICAID, SELFPAY ==
--- NOTE | ~2020-09-25 | CT_ITS ---
EXAMINATION: CT brain wo con INDICATION: Head injury COMPARISON: 08/23/2020 TECHNIQUE: Standard unenhanced head CT. The dose-length product (DLP) was 605.33 mGy-cm. The mA was a djusted according to patient size. Iterative reconstruction technique was employed. FINDINGS: There is no intracranial hemorrhage, acute infarction, or abnormal mass lesion. The ventric les are normal. There is no abnormal mass effect or midline shift. The alfaro-white matter differentiat ion is normal. The basal cisterns are patent. Intracranial calcified cerebral atherosclerosis is note d. The orbits are normal. The paranasal sinuses, mastoids and calvarium are normal. IMPRESSION: 1. No acute intracranial abnormality. Reviewed, dictated and finalized at location B.
[2020-09-25 15:05] VITALS: BP 114/76; PULSE 69; RESP 18; TEMP 36.9; O2SAT 97
--- NOTE | 2020-09-25 15:32 | ED.GENADULT ---
HPI - General Adult General Chief complaint: Fall Stated complaint: fall -head injury Time Seen by Provider: 09/25/20 15:12 History of Present Illness HPI narrative: Patient is a 60-year-old male with history of catatonic schizophrenia who presents the ER after striking his head [facility] his shelter. Because he struck his head and is on a blood thinner he was sent here for CT imaging of the brain. He had no loss of consciousness. Patient is unable to verbalize any other issues related to his injury. There is no visual evidence of trauma. Related Data Allergies Allergy/AdvReac Type Severity Reaction Status Date / Time No Known Allergies Allergy Verified 03/19/20 17:32 Review of Systems Review of Systems: ROS unobtainable: Yes unobtainable due to mental status PMFSH Past Medical History Medical History (Updated 09/25/20 @ 18:09 by Souleymane Wang MD) Catatonic schizophrenia DM (diabetes mellitus) H/O: HTN (hypertension) Sepsis Shingles UTI (urinary tract infection) Surgical History Surgical History No history of previous surgery Social History Social History Smoking status: Unknown if ever smoked Gender identity (if verbalized by the patient): Male Exam Narrative: Exam Narrative: GENERAL: Well-appearing, well-nourished, and in no acute distress. HEAD: Normocephalic, atraumatic. EYES: PERRLA and EOMI. NECK: Supple. Mild tenderness. CHEST: Clear to auscultation. No respiratory distress. HEART: Regular rate and rhythm. Normal peripheral pulses. EXTREMITIES: Normal range of motion. Trace edema. SKIN: Warm, dry, no rash. PSYCH: Patient sitting in bed staring straight ahead and will only randomly shake his head yes or no. Nonverbal. Consistent with his catatonic schizophrenia diagnosis. Course Course Emergency Course: Unremarkable evaluation. Discharge back to shelter. Vital Signs Vital signs: Vital Signs Temperature 98.5 F 09/25/20 15:05 Pulse Rate 69 09/25/20 15:05 Respiratory Rate 18 09/25/20 15:05 Blood Pressure 114/76 09/25/20 15:05 Pulse Oximetry 97 09/25/20 15:05 Temperature 98.5 F 09/25/20 15:05 Pulse Rate 69 09/25/20 15:05 Respiratory Rate 18 09/25/20 15:05 Blood Pressure 114/76 09/25/20 15:05 Pulse Oximetry 97 09/25/20 15:05 Medical Decision Making Vital Signs Vital Signs: Vital Signs Temperature 98.5 F 09/25/20 15:05 Pulse Rate 69 09/25/20 15:05 Respiratory Rate 18 09/25/20 15:05 Blood Pressure 114/76 09/25/20 15:05 Pulse Oximetry 97 09/25/20 15:05 Temperature 98.5 F 09/25/20 15:05 Pulse Rate 69 09/25/20 15:05 Respiratory Rate 18 09/25/20 15:05 Blood Pressure 114/76 09/25/20 15:05 Pulse Oximetry 97 09/25/20 15:05 Lab Data Labs: Lab Results 09/25/20 Range/Units 17:00 PT 24.9 H (11.1-14.7) Seconds INR 2.2 Imaging Data Radiologist's impression: ITS Impressions Head CT 09/25/20 15:30 IMPRESSION: 1. No acute intracranial abnormality. Discharge Plan Discharge Clinical Impression: Encounter for medical screening examination Patient Disposition: Home, Self-Care Condition: Stable Instructions: Normal Exam (ED) Additional Instructions: There is no evidence of intracranial bleed on your CT scan. Return to the ER if you have loss of consciousness, you cannot keep down food or water, you have additional concerns. Follow-up/Referrals: PHYSICIAN,BLOCK MAKING MACHINE OPERATOR [Primary Care Provider] -
[2020-09-25 17:29] LABS: INR 2.2; Prothrombin Time 24.9 Seconds (11.1-14.7)
== END 2020-09-25 20:00 | disposition home or self-care (01) ==
PROVIDERS: Emergency Provider Emergency Medicine
DX: S09.90XA Unspecified injury of head, initial encounter (principal); F20.2 Catatonic schizophrenia; E11.9 Type 2 diabetes mellitus without complications; I10 Essential (primary) hypertension; Z87.440 Personal history of urinary (tract) infections; Z79.01 Long term (current) use of anticoagulants; W07.XXXA Fall from chair, initial encounter
CPT/HCPCS: 36415; 70450; 85610; 99284

== ENCOUNTER 2021-01-02 09:29 | Emergency (ER) | payer MEDICARE, MEDICAID, SELFPAY ==
[2021-01-02] VITALS (20 sets, daily range): BP systolic 109–167; BP diastolic 82–90; PULSE 60–89; RESP 12–26; TEMP 36.6; O2SAT 90–99
--- NOTE | ~2021-01-02 | XR_ITS ---
EXAMINATION: XR chest 1V portable INDICATION: Altered mental status TECHNIQUE: Portable AP chest at 0946 hours COMPARISON: 07/06/2020 FINDINGS: There are minimal airspace opacities of the lung bases, left greater than right. There is n o pleural effusion or pneumothorax. The cardiomediastinal silhouette is normal. IMPRESSION: 1. Minimal airspace opacities of the lung bases, consistent with atelectasis versus pneumonia. Reviewed, dictated and finalized at location [facility]. IMPRESSION: 1. Minimal airspace opacities of the lung bases, consistent with atelectasis ve rsus pneumonia.
--- NOTE | ~2021-01-02 | CT_ITS ---
EXAMINATION: CT brain wo con INDICATION: Confusion, altered mental status COMPARISON: 09/25/2020 TECHNIQUE: Standard unenhanced head CT. The dose-length product (DLP) was 605.33 mGy-cm. The mA was a djusted according to patient size. Iterative reconstruction technique was employed. FINDINGS: There is no intracranial hemorrhage, acute infarction, or abnormal mass lesion. The ventric les are normal. There is no abnormal mass effect or midline shift. The alfaro-white matter differentiat ion is normal. The basal cisterns are patent. Intracranial calcified cerebral atherosclerosis is note d. The orbits are normal. There is mild mucosal thickening of the paranasal sinuses. IMPRESSION: 1. No acute intracranial abnormality. Reviewed, dictated and finalized at location B.
--- NOTE | 2021-01-02 09:39 | ECG_ITS ---
Measurements Intervals [place] Rate: 80 P: 30 VA: 159 QRS: -12 QRSD: 91 T: 0 QT: 365 QTc: 422 Interpretive Statements SINUS RHYTHM INCOMPLETE RIGHT BUNDLE BRANCH BLOCK BORDERLINE T WAVE ABNORMALITY- DIFFUSE LEADS BASELINE ARTIFACT- I, II, III, AVR, AVL, AVF, V1-V3 BORDERLINE ECG Electronically Signed On 01-02-2021 13:27:01 CDT by Memo Iverson D.O.
--- NOTE | 2021-01-02 09:56 | PC.NURSE ---
pt noted to have clonidine patch on his back dated 12/25 at 1301. patch removed. 2nd clonidine patch noted to sternum dated 12/31
--- NOTE | 2021-01-02 09:58 | ED.AMS ---
HPI - Altered Mental Status General Chief Complaint: Altered Mental Status Stated Complaint: ALOC History of Present Illness HPI narrative: 60 yo male w/ h/o catatonic schizophrenia [facility] status. He has reportedly been acting differently for the past 1-2 days. This morning he was reportedly walking around in circles. Not talking. Refusing to eat, drink, or even open his mouth. He was reportedly seen at [facility] and had changes to his psychiatric meds 3 days ago. He is not able to provide any additional history at this time. Related Data Allergies Allergy/AdvReac Type Severity Reaction Status Date / Time No Known Allergies Allergy Verified 03/19/20 17:32 Review of Systems Review of Systems: ROS unobtainable: Yes other (unable to obtain due to psychiatric condition) [facility] Past Medical History Medical History Catatonic schizophrenia DM (diabetes mellitus) H/O: HTN (hypertension) Sepsis Shingles UTI (urinary tract infection) Surgical History Surgical History No history of previous surgery Social History Social History Smoking status: Unknown if ever smoked Gender identity (if verbalized by the patient): Male Exam Const: General: no acute distress and alert HENMT: Other: jaw clenched Eyes: Pupils: Equal, round and reactive pupils present Neck: Neck: normal visual inspection Resp: Effort & Inspection: normal respiratory effort Auscultation: clear to auscultation bilaterally Cardio: Rate: regular rate Rhythm: regular rhythm GI: GI Palp: Yes Soft to palpation and No Tenderness to palpation present (GI) Skin: Other: mildly diaphoretic Neuro: Other: mildly increased muscle tone throughout. Not speaking or following commands. Extrem: General: normal to inspection Course Vital Signs Vital signs: Vital Signs Pulse Rate 84 01/02/21 09:35 Respiratory Rate 21 H 01/02/21 09:35 Blood Pressure 111/84 01/02/21 09:35 Pulse Oximetry 96 01/02/21 09:35 Temperature 36.6 C 01/02/21 09:46 Pulse Rate 64 01/02/21 14:16 Respiratory Rate 15 01/02/21 14:16 Blood Pressure 126/87 01/02/21 14:16 Pulse Oximetry 99 01/02/21 14:16 MDM - Altered Mental Status MDM Narrative Medical decision making narrative: DDx: schizophrenia, medication side effect VS, labs, and imaging reassuring. He is eating and drinking with some encouragement. He may need psychiatric follow-up to address his medications. Medical Records Attestation: I reviewed the patient's medical records. Lab Data Attestation: I reviewed the patient's lab results. Result diagrams: 01/02/21 09:54 01/02/21 09:54 Labs: Lab Results 01/02/21 01/02/21 01/02/21 Range/Units 09:54 09:54 09:54 WBC 10.8 H (4.5-10.0) K/mm3 RBC 4.62 (4.6-6.20) M/mm3 Hgb 13.1 L (14.0-18.0) g/dL Hct 40.5 L (42.0-52.0) % MCV 87.7 (80-100) fl MCH 28.4 (26-34) pg MCHC 32.3 (32-36) g/dl RDW 13.0 (11.5-14.5) % Plt Count 241 (150-375) k/mm3 MPV 10.3 (7.4-10.4) fl Immature Gran % (Auto) 0.4 (0-0.5) % Neut % (Auto) 79.7 H (45.5-73.1) % Lymph % (Auto) 12.7 L (18.3-44.2) % [place] % (Auto) 6.8 (2.6-8.5) % Eos % (Auto) 0.1 (0-4.4) % Baso % (Auto) 0.3 (0.2-1.2) % Lymph # (Auto) 1.38 (0.9-3.2) K/mm3 [place] # (Auto) 0.7 H (0.1-0.6) K/mm3 Eos # (Auto) 0.0 (0-0.3) K/mm3 Baso # (Auto) 0.0 (0.0-0.1) K/mm3 Abs Immat Gran (auto) 0.04 H (0.00-0.031) K/mm3 Absolute Neuts (auto) 8.6 H (1.3-6.7) K/mm3 Absolute Nucleated RBC 0.0 (0.0-0.012) K/mm3 Nucleated RBC % 0.0 (0.0-0.2) % PT 15.1 H (11.1-14.7) Seconds INR 1.2 APTT 28.1 (22.3-36.8) SECONDS Sodium 145 (137-145) mmol/L Potassium 3.
[2021-01-02 10:01] LABS: Basophils Percent Auto 0.3 % (0.2-1.2); Eosinophils Percent Auto 0.1 % (0-4.4); Hematocrit 40.5 % (42.0-52.0); Hemoglobin 13.1 g/dL (14.0-18.0); Immature Granulocyte Absolute 0.04 K/mm3 (0.00-0.031); Immature Granulocyte Percent A 0.4 % (0-0.5); Lymphocytes Absolute Auto 1.38 K/mm3 (0.9-3.2); Lymphocytes Percent Auto 12.7 % (18.3-44.2); Mean Corpuscular HGB Conc 32.3 g/dl (32-36); Mean Corpuscular Hemoglobin 28.4 pg (26-34); Mean Corpuscular Volume 87.7 fl (80-100); Mean Platelet Volume 10.3 fl (7.4-10.4); Monocytes Absolute Auto 0.7 K/mm3 (0.1-0.6); Monocytes Percent Auto 6.8 % (2.6-8.5); Neutrophils Absolute Auto 8.6 K/mm3 (1.3-6.7); Neutrophils Percent Auto 79.7 % (45.5-73.1); Platelet Count Result 241 k/mm3 (150-375); Red Blood Count 4.62 M/mm3 (4.6-6.20); White Blood Count 10.8 K/mm3 (4.5-10.0)
[2021-01-02] MEDS: diphenhydrAMINE HCl INJ 50 MG/ML VIAL IV PUSH (10:05)
[2021-01-02] MEDS: LACTATED RINGERS 2,000 ML 999 ML IV CONT (10:06)
[2021-01-02 10:10] LABS: Alveolar/Arterial O2 Gradient 30.2 mmHg; Base Excess ABG 1.8 mEq/l (+/-2.0); Device ROOM AIR; Fractional Inspired Oxygen 21 %; HCO3 ABG 25.8 mEq/l (22.0-26.0); Modified Allen's Test Pass; Oxygen Content ABG 18.9 %vol (16.0-22.0); Oxygen Saturation ABG 95.4 % (95.0-100.0); Oxyhemoglobin 93.8 % THb (90.0-100.0); PCO2 ABG 38.3 mmHg (35.0-45.0); PO2 ABG 73.7 mmHg (80.0-100.0); PO2 FiO2 Ratio Arterial Blood 3.51 %; Site Drawn LEFT RADIAL; Total Hemoglobin 14.3 g/dL (12.0-18.0); pH ABG 7.446 (7.350-7.450)
[2021-01-02 10:11] LABS: Acetaminophen < 10 ug/mL (10-30); Ethanol < 10 mg/dL (<10); INR 1.2; Lactic Acid Reflex 1.4 mmol/L (0.7-2.1); Prothrombin Time 15.1 Seconds (11.1-14.7); Salicylate < 1.0 mg/dL (2-20)
[2021-01-02 10:12] LABS: Partial Thromboplastin Time 28.1 SECONDS (22.3-36.8)
[2021-01-02 10:13] LABS: Alanine Aminotransferase 18 U/L (4-50); Albumin Level 4.3 g/dL (3.5-5.1); Alkaline Phosphatase 72 U/L (38-126); Anion Gap 11 mmol/L (8-16); Aspartate Amino Transferase 39 U/L (17-59); Bilirubin,Total 0.8 mg/dL (0.2-1.3); Blood Urea Nitrogen 28 mg/dL (9-20); Calcium 10.3 mg/dL (8.4-10.2); Carbon Dioxide 26 mmol/L (22-30); Chloride 108 mmol/L (98-107); Creatine Kinase 465 U/L (55-170); Estimated CRCL calculation 85 ml/min; Estimated Glomerular Filt Rate > 60; Glucose 117 mg/dL (65-110); Potassium 3.6 mmol/L (3.4-5.0); Sodium 145 mmol/L (137-145)
[2021-01-02 11:26] LABS: Add Urine Microscopic? YES; Appearance Urine Clear (Clear); Bilirubin Urine Negative (Negative); Blood Urine Negative (Negative); Color Urine Yellow (Yellow); Glucose Urine UA Negative (Negative); Ketones Urine 1+ mg/dL (Negative); Leukocyte Esterase Ur Negative LEU/UL (Negative); Mucus Urine Few /lpf; Nitrate Urine Negative (Negative); Protein Urine 1+ mg/dL (Negative); RBC Urine 0-2 /hpf (0-2); WBC Urine 0-3 /hpf
[2021-01-02 11:27] LABS: Specific Grav Ur 1.032 (1.001-1.035)
[2021-01-02 11:30] LABS: Amphetamine Screen Urine Negative (Negative); Barbiturate Screen Urine Negative (Negative); Benzodiazepines Screen Urine Negative (Negative); Cannabinoid Screen Urine Negative (Negative); Cocaine Screen Urine Negative (Negative); Methadone Screen Urine Negative (Negative); Opiate Screen Urine Negative (Negative); Phencyclidine Screen Urine Negative (Negative)
--- NOTE | 2021-01-02 14:30 | PC.NURSE ---
Attempted to provide pt with food and drink. Pt would not open his mouth to eat or drink. Notified MD about status
--- NOTE | 2021-01-02 15:07 | PCCCNOTE ---
Spoke with [facility] regarding potential transfer of patient. [facility] with [facility] will be returning my call and providing fax number for clinicals. They are uncertain at this time if a bed will be available but did request Covid testing.
--- NOTE | 2021-01-02 15:08 | PC.NURSE ---
Pt now drinking out of a straw and eating with some assistance
--- NOTE | 2021-01-02 15:16 | PC.NURSE ---
Pt attempting to get out of bed. Pt placed on bed alarm at this time
--- NOTE | 2021-01-02 17:21 | PCCCNOTE ---
Agnes with Laureen, charge nurse. Bed at [facility] is no longer needed as the plan is to send the patient back to the facility where he lives. Rudi at [facility] updated with new plan of care
== END 2021-01-02 20:14 ==
PROVIDERS: Emergency Provider Emergency Medicine
DX: F20.2 Catatonic schizophrenia (principal); E11.9 Type 2 diabetes mellitus without complications; I10 Essential (primary) hypertension; Z87.440 Personal history of urinary (tract) infections; I45.10 Unspecified right bundle-branch block; R94.31 Abnormal electrocardiogram [ECG] [EKG]; R91.8 Other nonspecific abnormal finding of lung field; Z79.899 Other long term (current) drug therapy
CPT/HCPCS: 36415; 36600; 51701; 70450; 71045; 80053; 80307; 81001; 82550; 82805; 83605; 84443; 85025; 85610; 85730; 93005; 96361; 96374; 99284; J1200; J7120

== ENCOUNTER 2021-01-04 07:41 | Emergency (ER) | payer MEDICARE, MEDICAID, SELFPAY ==
[2021-01-04 07:43] VITALS: BP 164/94; PULSE 86; RESP 17; TEMP 36.6; O2SAT 95
--- NOTE | 2021-01-04 07:48 | ECG_ITS ---
Measurements Intervals [place] Rate: 89 P: 58 MA: 138 QRS: -7 QRSD: 93 T: 132 QT: 363 QTc: 443 Interpretive Statements SINUS RHYTHM VENTRICULAR PREMATURE COMPLEX DELAYED PRECORDIAL R/S TRANSITION NONSPECIFIC T-WAVE ABNORMALITY- DIFFUSE LEADS BASELINE ARTIFACT- I, II, III, AVR, AVL,A VF, V1, V4-V6 BORDERLINE ECG Electronically Signed On 01-04-2021 8:21:08 CDT by Memo Iverson D.O.
[2021-01-04 09:29] VITALS: BP 172/103; PULSE 126; RESP 26; O2SAT 97
[2021-01-04 09:50] LABS: Alanine Aminotransferase 17 U/L (4-50); Albumin Level 4.1 g/dL (3.5-5.1); Alkaline Phosphatase 66 U/L (38-126); Anion Gap 10 mmol/L (8-16); Aspartate Amino Transferase 36 U/L (17-59); Bilirubin,Total 0.6 mg/dL (0.2-1.3); Blood Urea Nitrogen 26 mg/dL (9-20); Calcium 9.4 mg/dL (8.4-10.2); Carbon Dioxide 23 mmol/L (22-30); Chloride 114 mmol/L (98-107); Estimated CRCL calculation 101 ml/min; Estimated Glomerular Filt Rate > 60; Glucose 90 mg/dL (65-110); Potassium 3.9 mmol/L (3.4-5.0); Sodium 147 mmol/L (137-145)
[2021-01-04 11:09] LABS: Add Urine Microscopic? YES; Appearance Urine Clear (Clear); Bilirubin Urine Negative (Negative); Blood Urine 1+ (Negative); Color Urine Yellow (Yellow); Glucose Urine UA Negative (Negative); Ketones Urine Trace mg/dL (Negative); Leukocyte Esterase Ur Negative LEU/UL (Negative); Mucus Urine Rare /lpf; Nitrate Urine Negative (Negative); Protein Urine Negative (Negative); RBC Urine 0-2 /hpf (0-2); Squamous Epithelial Cell Urine Rare /hpf (Few); WBC Urine 0-3 /hpf
[2021-01-04 11:12] LABS: Specific Grav Ur 1.033 (1.001-1.035)
--- NOTE | 2021-01-04 11:27 | PC.NURSE ---
PT eating with tech assistance at this time. Still will not respond verbally but awake and following some commands
--- NOTE | 2021-01-04 11:29 | ED.AMS ---
HPI - Altered Mental Status General Chief Complaint: Altered Mental Status Stated Complaint: ALTERED Time Seen by Provider: 01/04/21 08:51 Source: EMS and RN notes reviewed Mode of arrival: EMS History of Present Illness HPI narrative: Patient is 60 years old white male brought to the emergency room [facility] because of schizophrenia with catatonic episode. Patient had recurrent similar history, usually come to the emergency room, hang around for few hours then go back to his normal mental status which is awake, alert and oriented x1. Patient arrived to the ED awake but unresponsive to verbal or painful stimulation, eyes are open but deviated down and to the right and mild facial twitches. Related Data Allergies Allergy/AdvReac Type Severity Reaction Status Date / Time No Known Allergies Allergy Verified 03/19/20 17:32 Review of Systems Review of Systems: Narrative: CONSTITUTIONAL: Denies fever, chills, or sweats. EYES: Denies visual changes, redness, or discharge. ENT: Denies rhinorrhea, congestion, sore throat, or otalgia. CARDIOVASCULAR: Denies chest pain, palpitations, or edema. RESPIRATORY: Denies cough or dyspnea. GASTROINTESTINAL: Denies abdominal pain, nausea, vomiting, or diarrhea. GENITOURINARY: Denies dysuria or hematuria. SKIN: Denies rash or itching. MUSCULOSKELETAL: Denies back pain, joint pain, or myalgia. NEUROLOGIC: Denies headache, numbness, or weakness. PSYCHIATRIC: Denies anxiety or depression. [facility] Past Medical History Medical History (Updated 01/04/21 @ 11:37 by Lennox Bailey MD) Catatonic schizophrenia DM (diabetes mellitus) H/O: HTN (hypertension) Sepsis Shingles UTI (urinary tract infection) Surgical History Surgical History No history of previous surgery Social History Social History Smoking status: Unknown if ever smoked Gender identity (if verbalized by the patient): Male Exam Narrative: Exam Narrative: General appearance: Well-developed, well-nourished Skin: Normal color Head: Normocephalic, nontraumatic Eyes: Clear conjunctiva, eyes are open but deviated down and to the right, mild facial twitches, ENT: Patient does not open his mouth, jaw clenched. Neck: Supple, nontender Chest and respiratory: Airway patent, no respiratory distress, no accessory muscle use Heart: Regular rate/rhythm Abdomen: Soft, nontender, no organomegaly, quiet bowel sounds Vascular: Normal peripheral pulses, normal capillary refill. Neurologic: Patient is awake does not talk. Course Course Emergency Course: Improving Reevaluation(s) Reevaluation #1: Currently patient is back to his normal mental status, awake, alert, eating at this time. Nausea which is consistent with his normal mental status prior to her arrival to the emergency room Date: 01/04/21 Time: 11:34 Vital Signs Vital signs: Vital Signs Temperature 36.6 C 01/04/21 07:43 Pulse Rate 86 01/04/21 07:43 Respiratory Rate 17 01/04/21 07:43 Blood Pressure 164/94 H 01/04/21 07:43 Pulse Oximetry 95 01/04/21 07:43 Temperature 36.6 C 01/04/21 07:43 Pulse Rate 126 H 01/04/21 09:29 Respiratory Rate 26 H 01/04/21 09:29 Blood Pressure 172/103 H 01/04/21 09:29 Pulse Oximetry 97 01/04/21 09:29 MDM - Altered Mental Status MDM Narrative Medical decision making narrative: Schizophrenia with catatonic spell Lab Data Result diagrams: 01/04/21 09:30 01/04/21 09:30 Labs: Lab Results 01/04/21 01/04/21 01/04/21 Range/Units 09:30 09:30 10:57 WBC Pending RBC Pending Hgb
--- NOTE | 2021-01-04 11:37 | PC.NURSE ---
Report called to nurse Tucker at [facility]. Ambulance ETA 1230 for transport back to facility
[2021-01-04 12:36] VITALS: BP 154/97; PULSE 85; RESP 21; O2SAT 96
== END 2021-01-04 13:28 | disposition hospice, inpatient (51) ==
PROVIDERS: Emergency Provider Emergency Medicine
DX: F20.2 Catatonic schizophrenia (principal); E11.9 Type 2 diabetes mellitus without complications; I10 Essential (primary) hypertension; Z87.440 Personal history of urinary (tract) infections
CPT/HCPCS: 36415; 51701; 80053; 81001; 93005; 99283; J3360

== ENCOUNTER 2021-01-07 02:42 | Emergency (ER) | payer MEDICARE, MEDICAID, SELFPAY ==
--- NOTE | ~2021-01-07 | CT_ITS ---
EXAMINATION: CT cervical spine wo con DATE: 01/07/2021 05:16 INDICATION: Fall. Head and neck injuries. Patient on anticoagulation therapy TECHNIQUE: Computed tomography (CT) of the cervical spine was performed without intravenous contrast. Automated exposure control and iterative reconstruction technique were employed. Exam dose: 458.83 mGy-cm total exam DLP. COMPARISON: None FINDINGS: There is levoscoliosis of the cervical spine and reversal of cervical curvature. C1 and C2 are normally aligned and the odontoid process is intact. No fracture or dislocation or lock ed facet. There is moderate degenerative disc disease throughout the cervical spine. There is uncovertebral joint spurring at C3-4, C4-5, C5-6. IMPRESSION: Reversal cervical curvature and levoscoliosis Cervical spondylosis Reviewed, dictated and finalized at Location [facility]. Reviewed, dictated and finalized at location A.
--- NOTE | ~2021-01-07 | CT_ITS ---
EXAMINATION: CT brain wo con DATE: 01/07/2021 05:16 INDICATION: Fall. Patient on anticoagulation therapy. TECHNIQUE: Computed tomography (CT) of the head was performed without intravenous contrast. The mA wa s adjusted according to patient size. Iterative reconstruction technique was employed. Exam dose: 60 5.33 mGy-cm total exam DLP. COMPARISON: 01/02/2021 CT brain FINDINGS: Bilateral vertebral artery, basilar artery and bilateral carotid siphon and supraclinoid in ternal carotid artery calcifications. There is nonspecific diminished attenuation cerebral white matter, likely due to chronic small vessel ischemic changes. Normal ventricular size. No intracranial mass lesion or hemorrhage or cerebrovascular accident is liz dent. No midline shift or mass effect effect. There is mild basal ganglia calcification. No subdural or epidural hematoma. There is soft tissue thickening of the ethmoid air cells, left greater than right. There is minimal m ucoperiosteal thickening of the sphenoid maxillary sinus. The mastoid air cells are normally developed and aerated. No fracture or bone destruction of the cranial vault. IMPRESSION: No skull fracture or acute intracranial abnormality Reviewed, dictated and finalized at [facility]. Reviewed, dictated and finalized at location A.
[2021-01-07 02:50] VITALS: BP 131/91; PULSE 90; RESP 18; TEMP 37.2; O2SAT 95
[2021-01-07 03:30] VITALS: BP 159/92; PULSE 89; RESP 17; O2SAT 95
[2021-01-07 05:05] LABS: Basophils Percent Auto 0.2 % (0.2-1.2); Eosinophils Absolute Auto 0.1 K/mm3 (0-0.3); Eosinophils Percent Auto 1.3 % (0-4.4); Hemoglobin 11.9 g/dL (14.0-18.0); Immature Granulocyte Absolute 0.03 K/mm3 (0.00-0.031); Immature Granulocyte Percent A 0.3 % (0-0.5); Lymphocytes Absolute Auto 2.87 K/mm3 (0.9-3.2); Lymphocytes Percent Auto 32.2 % (18.3-44.2); Mean Corpuscular HGB Conc 31.3 g/dl (32-36); Mean Corpuscular Hemoglobin 27.9 pg (26-34); Mean Platelet Volume 10.7 fl (7.4-10.4); Monocytes Absolute Auto 1.2 K/mm3 (0.1-0.6); Monocytes Percent Auto 13.2 % (2.6-8.5); Neutrophils Absolute Auto 4.7 K/mm3 (1.3-6.7); Neutrophils Percent Auto 52.8 % (45.5-73.1); Platelet Count Result 197 k/mm3 (150-375); Red Blood Count 4.27 M/mm3 (4.6-6.20); White Blood Count 8.9 K/mm3 (4.5-10.0)
[2021-01-07 05:16] LABS: Alanine Aminotransferase 22 U/L (4-50); Albumin Level 3.7 g/dL (3.5-5.1); Alkaline Phosphatase 63 U/L (38-126); Anion Gap 11 mmol/L (8-16); Aspartate Amino Transferase 49 U/L (17-59); Bilirubin,Total 0.6 mg/dL (0.2-1.3); Blood Urea Nitrogen 26 mg/dL (9-20); Calcium 9.1 mg/dL (8.4-10.2); Carbon Dioxide 22 mmol/L (22-30); Chloride 107 mmol/L (98-107); Estimated Glomerular Filt Rate > 60; Glucose 92 mg/dL (65-110); Potassium 3.1 mmol/L (3.4-5.0); Sodium 140 mmol/L (137-145)
[2021-01-07 05:27] VITALS: BP 149/89; PULSE 79; RESP 10; O2SAT 92
[2021-01-07 05:51] LABS: Add Urine Microscopic? YES; Appearance Urine Clear (Clear); Bacteria Urine Trace /hpf; Bilirubin Urine Negative (Negative); Blood Urine 1+ (Negative); Color Urine Yellow (Yellow); Glucose Urine UA Negative (Negative); Ketones Urine Trace mg/dL (Negative); Leukocyte Esterase Ur Trace LEU/UL (Negative); Mucus Urine Rare /lpf; Nitrate Urine Negative (Negative); Protein Urine 1+ mg/dL (Negative); RBC Urine 0-2 /hpf (0-2)
[2021-01-07 05:57] LABS: Specific Grav Ur 1.032 (1.001-1.035)
[2021-01-07 06:07] VITALS: BP 145/93; PULSE 74; RESP 18; O2SAT 95
--- NOTE | 2021-01-07 06:47 | ED.FALL ---
HPI - Fall General Chief Complaint: Fall Stated Complaint: AMS Time Seen by Provider: 01/07/21 03:25 Source: EMS Mode of arrival: EMS Limitations: physical limitation History of Present Illness HPI Narrative: This is a 60 year old male with history of hypertension, DM, HIV, catatonia who presents via EMS for evaluation of an unwitnessed fall. Patient is awake and he will move his head for yes and no. Patient denies any pain. It is unclear if he hit his head. No signs of injury were seen EMS reports patient is at baseline. Related Data Allergies Allergy/AdvReac Type Severity Reaction Status Date / Time No Known Allergies Allergy Verified 03/19/20 17:32 Review of Systems Review of Systems: ROS unobtainable: Yes unobtainable due to medical condition (catatonia) [facility] Past Medical History Medical History (Updated 01/07/21 @ 07:02 by Yue Asif MD) Catatonic schizophrenia DM (diabetes mellitus) H/O: HTN (hypertension) Sepsis Shingles UTI (urinary tract infection) Surgical History Surgical History No history of previous surgery Social History Social History Smoking status: Unknown if ever smoked Gender identity (if verbalized by the patient): Male Exam Const: General: no acute distress and alert HENMT: Head: normocephalic and atraumatic Face and sinus: face symmetric Eyes: Pupils: Equal, round and reactive pupils present EOM: EOMs intact bilaterally Chest: Chest palpation & inspection: no tenderness Resp: Effort & Inspection: normal respiratory effort and no retractions Auscultation: clear to auscultation bilaterally Cardio: Rate: regular rate Rhythm: regular rhythm Heart sounds: no murmurs GI: GI Palp: Yes Soft to palpation, No Tenderness to palpation present (GI) and No Guarding due to palpation present (GI) Auscultation: normal bowel sounds Extrem: General: normal to inspection Course Reevaluation(s) Reevaluation #1: PAtient's labs are unremarkable. Will discharge back to facility . no other signs of injury at this time. I spoke with radiologist and he states interpretation should be not significantly altered parenchyma Date: 01/07/21 Time: 06:54 Vital Signs Vital signs: Vital Signs Temperature 99.0 F 01/07/21 02:50 Pulse Rate 90 01/07/21 02:50 Respiratory Rate 18 01/07/21 02:50 Blood Pressure 131/91 H 01/07/21 02:50 Pulse Oximetry 95 01/07/21 02:50 Temperature 99.0 F 01/07/21 02:50 Pulse Rate 70 01/07/21 07:28 Respiratory Rate 16 01/07/21 07:28 Blood Pressure 156/89 H 01/07/21 07:28 Pulse Oximetry 100 01/07/21 07:28 MDM - Fall Lab Data Attestation: I reviewed the patient's lab results. Result diagrams: 01/07/21 04:57 01/07/21 04:57 Labs: Lab Results 01/07/21 01/07/21 01/07/21 Range/Units 04:57 04:57 05:40 WBC 8.9 (4.5-10.0) K/mm3 RBC 4.27 L (4.6-6.20) M/mm3 Hgb 11.9 L (14.0-18.0) g/dL Hct 38.0 L (42.0-52.0) % MCV 89.0 (80-100) fl MCH 27.9 (26-34) pg MCHC 31.3 L (32-36) g/dl RDW 13.0 (11.5-14.5) % Plt Count 197 (150-375) k/mm3 MPV 10.7 H (7.4-10.4) fl Immature Gran % (Auto) 0.3 (0-0.5) % Neut % (Auto) 52.8 (45.5-73.1) % Lymph % (Auto) 32.2 (18.3-44.2) % [place] % (Auto) 13.2 H (2.6-8.5) % Eos % (Auto) 1.3 (0-4.4) % Baso % (Auto) 0.2 (0.2-1.2) % Lymph # (Auto) 2.87 (0.9-3.2) K/mm3 [place] # (Auto) 1.2 H (0.1-0.6) K/mm3 Eos # (Auto) 0.1 (0-0.3) K/mm3 Baso # (Auto) 0.0 (0.0-0.1) K/mm3 Abs Immat Gran (auto) 0.03 (0.00-0.031) K/mm3 Absolute Neuts (auto) 4.7 (1.3-6.7) K/mm3 Absolute Nucleated RBC 0.0 (0.0-0.012) K/mm3 Nucleated RBC % 0.0 (0.0-0.2) % Sodium 140 (137-145) mmol/L Potassium 3.1 L (3.4-5.0) mmol/L Chloride 107 (98-107) mmol/L Carbon Dioxide
[2021-01-07 07:20] VITALS: BP 156/89; PULSE 72; RESP 17; O2SAT 95
--- NOTE | 2021-01-07 07:21 | PC.NURSE ---
report from MARCELINA Gutierrez. care assumed at this time.
[2021-01-07 07:28] VITALS: BP 156/89; PULSE 70; RESP 16; O2SAT 100
== END 2021-01-07 08:36 ==
PROVIDERS: Emergency Provider General Practice
DX: R29.6 Repeated falls (principal); I10 Essential (primary) hypertension; E11.9 Type 2 diabetes mellitus without complications; F20.2 Catatonic schizophrenia; Z21 Asymptomatic human immunodeficiency virus [HIV] infection status; Z87.440 Personal history of urinary (tract) infections; W19.XXXA Unspecified fall, initial encounter
CPT/HCPCS: 36415; 51701; 70450; 72125; 80053; 81001; 85025; 99284

== ENCOUNTER 2021-08-01 07:28 | Inpatient (IN) | payer OTHER, SELFPAY ==
[2021-08-01] VITALS (14 sets, daily range): BP systolic 124–188; BP diastolic 76–94; PULSE 81–137; RESP 18–24; TEMP 36.7–37.7; O2SAT 97–99; BMI 25.4
--- NOTE | ~2021-08-01 | XR_ITS ---
XR chest 1V portable DATE: 08/01/2021 08:26 INDICATION: Fall. Tachycardia. TECHNIQUE: Portable upright AP views on August 01, 2021 at 0822 and 0823 hours COMPARISON: 01/02/2021 portable AP chest at 0946 hours FINDINGS: Normal heart size. No hilar or mediastinal enlargement. There is aortic arch calcification, mild aortic unfolding. No pulmonary infiltrate or consolidation, pleural effusion or pulmonary vascular congestion or pneumo thorax. Diffuse idiopathic skeletal hyperostosis of the thoracic spine. IMPRESSION: No active cardiopulmonary disease Reviewed, dictated and finalized at location B. DROPPER
--- NOTE | ~2021-08-01 | CT_ITS ---
EXAMINATION: CT brain wo con DATE: 08/01/2021 20:38 INDICATION: Mental status change TECHNIQUE: Computed tomography (CT) of the head was performed without intravenous contrast. Sagittal and coronal reconstructions were performed. The mA was adjusted according to patient size. Iterative reconstruction technique was employed. The dose-length product was 605.33 mGy-cm. COMPARISON: head CT dated 01/07/2021 FINDINGS: No acute intracranial hemorrhage, acute infarction or abnormal extra axial fluid collection. Ventricl es are normal and symmetric. No mass/mass effect. Intracranial calcified cerebral atherosclerosis is noted. The orbits, paranasal sinuses and mastoid air cells are normal. IMPRESSION: 1. No acute cardiopulmonary disease. Reviewed, dictated and finalized at location A. ENT OFFICER
--- NOTE | 2021-08-01 07:46 | PC.NURSE ---
pt continuously trying to get out of bed. bed alarm placed on pt. yellow clasp applied to wrist band. tech at bedside with pt redirecting pt in bed. EDP aware of situation. EDP contacting [facility] to get more information on the patient.
--- NOTE | 2021-08-01 07:48 | ECG_ITS ---
Measurements Intervals [place] Rate: 134 P: 50 ND: 123 QRS: 18 QRSD: 82 T: 138 QT: 297 QTc: 445 Interpretive Statements SINUS TACHYCARDIA ST-T WAVE ABNORMALITY IN LAT/HIGH LAT LEADS- CONSIDER ISCHEMIA BASELINE ARTIFACT- II, III, AVL, AVF ABNORMAL ECG Electronically Signed On 08-01-2021 12:12:56 STAIN WIPER by Memo Iverson D.O.
--- NOTE | 2021-08-01 07:51 | ED.GENADULT ---
HPI - General Adult General Chief complaint: Fall Stated complaint: WEAKNESS/FALL Time Seen by Provider: 08/01/21 07:48 Source: EMS and RN notes reviewed Mode of arrival: EMS Limitations: clinical condition History of Present Illness HPI narrative: Patient is 61 years old white male brought to the emergency room by ambulance from residential because of a fall. His nurse at the residential is telling me that patient was up all night long, restless, walking around, his room smelled urine, was trying to walk up to the MARC lost his balance and on the left side of his body, witnessed, no head or neck injury. Patient normally disoriented x3, full code, his temperature this morning was 99.3 Related Data Allergies Allergy/AdvReac Type Severity Reaction Status Date / Time No Known Allergies Allergy Verified 03/19/20 17:32 Review of Systems Review of Systems: ROS unobtainable: Yes unobtainable due to mental status PMFSH Past Medical History Medical History (Updated 08/01/21 @ 11:22 by Lennox Bailey MD) Catatonic schizophrenia DM (diabetes mellitus) H/O: HTN (hypertension) Sepsis Shingles UTI (urinary tract infection) Surgical History Surgical History No history of previous surgery Social History Social History Smoking status: Unknown if ever smoked Gender identity (if verbalized by the patient): Male Exam Narrative: General appearance: Well-developed, well-nourished, uncooperative does not want to lay in bed Skin: Normal color Head: Normocephalic, nontraumatic Eyes: Clear conjunctiva ENT: Oropharynx normal, ears normal, nose normal Neck: Supple, nontender Chest and respiratory: Airway patent, no respiratory distress, no accessory muscle use Heart: Regular rate/rhythm Abdomen: Soft, nontender, no organomegaly, quiet bowel sounds Vascular: Normal peripheral pulses, normal capillary refill. Musculoskeletal: Normal range of motion, nontender back Neurologic: Alert, disoriented x3 Course Course Emergency Course: Patient presented with agitation, fever, smelly urine. Work-up showed sepsis, urinary tract infection, GILBERTO. Patient required 2-3 people to hold him down, uncooperative, history of dementia and disorientation x3. Patient agitation could be because of the new environment, or intracranial abnormality secondary to fall, although the residential staff denied any head injury. CT scan ordered. Rocephin IV started, IV fluid started. Patient received 1 mg of Ativan without significant effect, another 1 mg was given 1 hour later, patient is still fighting the staff, 5 mg Haldol IM was given. Currently patient is semisleepy and relaxed. Vital Signs Vital signs: Vital Signs Temperature 37.7 C H 08/01/21 07:36 Pulse Rate 137 H 08/01/21 07:36 Respiratory Rate 23 H 08/01/21 07:36 Blood Pressure 188/94 H 08/01/21 07:36 Pulse Oximetry 99 08/01/21 07:36 Temperature 37.2 C 08/01/21 10:28 Pulse Rate 129 H 08/01/21 10:30 Respiratory Rate 21 H 08/01/21 10:30 Blood Pressure 134/83 08/01/21 10:30 Pulse Oximetry 97 08/01/21 10:30 Medical Decision Making Vital Signs Vital Signs: Vital Signs Temperature 37.7 C H 08/01/21 07:36 Pulse Rate 137 H 08/01/21 07:36 Respiratory Rate 23 H 08/01/21 07:36 Blood Pressure 188/94 H 08/01/21 07:36 Pulse Oximetry 99 08/01/21 07:36 Temperature 37.2 C 08/01/21 10:28 Pulse Rate 129 H 08/01/21 10:30 Respiratory Rate 21 H 08/01/21 10:30 Blood Pressure 134/83 08/01/21 10:30 Pulse Oximetry 97 08/01/21 10:30 Lab Data Result diagrams: 08/01/21
[2021-08-01] MEDS: LORazepam INJ (*CRX) 2 MG/ML VIAL 1 MG IV PUSH ×2 (08:33→10:26)
[2021-08-01] MEDS: SODIUM CHLORIDE 0.9% IV 1,000 ML 999 ML IV CONT (08:34)
[2021-08-01 08:35] LABS: Add Urine Microscopic? YES; Appearance Urine Clear (Clear); Bacteria Urine Trace /hpf; Bilirubin Urine 1+ (Negative); Color Urine Amber (Yellow); Glucose Urine UA Negative (Negative); Ketones Urine 1+ mg/dL (Negative); Leukocyte Esterase Ur 3+ LEU/UL (Negative); Mucus Urine Moderate /lpf; Nitrate Urine Negative (Negative); Protein Urine 2+ mg/dL (Negative); Specific Grav Ur 1.029 (1.001-1.035); Squamous Epithelial Cell Urine Rare /hpf (Few); WBC Urine 31-50 /hpf
[2021-08-01 08:51] LABS: Blood Urine Negative (Negative)
[2021-08-01 09:16] LABS: Basophils Percent Auto 0.4 % (0.2-1.2); Hematocrit 43.6 % (42.0-52.0); Hemoglobin 13.7 g/dL (14.0-18.0); Immature Granulocyte Absolute 0.05 K/mm3 (0.00-0.031); Immature Granulocyte Percent A 0.4 % (0-0.5); Lymphocytes Absolute Auto 2.74 K/mm3 (0.9-3.2); Lymphocytes Percent Auto 24.1 % (18.3-44.2); Mean Corpuscular HGB Conc 31.4 g/dl (32-36); Mean Corpuscular Hemoglobin 28.6 pg (26-34); Monocytes Absolute Auto 1.2 K/mm3 (0.1-0.6); Monocytes Percent Auto 10.8 % (2.6-8.5); Neutrophils Absolute Auto 7.3 K/mm3 (1.3-6.7); Neutrophils Percent Auto 64.3 % (45.5-73.1); Platelet Count Result 197 k/mm3 (150-375); Red Blood Count 4.79 M/mm3 (4.6-6.20); Red Cell Distribution Width 13.3 % (11.5-14.5); White Blood Count 11.4 K/mm3 (4.5-10.0)
[2021-08-01 09:45] LABS: Lactic Acid Reflex 8.1 mmol/L (0.7-2.1)
[2021-08-01] MEDS: KETOROLAC 30 MG/ML VIAL (*BKC) IV PUSH (09:49)
[2021-08-01 10:09] LABS: Alanine Aminotransferase 30 U/L (4-50); Albumin Level 4.8 g/dL (3.5-5.1); Alkaline Phosphatase 76 U/L (38-126); Anion Gap 23 mmol/L (8-16); Aspartate Amino Transferase 64 U/L (17-59); Bilirubin,Total 0.9 mg/dL (0.2-1.3); Blood Urea Nitrogen 28 mg/dL (9-20); CRP 1.4 mg/dL (<1.0); Calcium 10.5 mg/dL (8.4-10.2); Carbon Dioxide 15 mmol/L (22-30); Chloride 104 mmol/L (98-107); Estimated CRCL calculation 62 ml/min; Estimated Glomerular Filt Rate > 60; Glucose 82 mg/dL (65-110); Potassium 4.5 mmol/L (3.4-5.0); Sodium 142 mmol/L (137-145)
--- NOTE | 2021-08-01 10:10 | PC.NURSE ---
pt still continuously trying to get out of bed. EDP aware of situation. EDP states to give 1mg of Ativan. VORB.
--- NOTE | 2021-08-01 10:26 | PC.NURSE ---
pt pulled out IV w/ catheter intact. another 20G IV started in his R. forearm.
[2021-08-01] MEDS: HALOPERIDOL LACTATE 5 MG/ML VIAL IM (10:59)
--- NOTE | 2021-08-01 11:11 | PC.NURSE ---
pt still continuing to try to pull IV out and get out of bed. EDP aware. EDP states to put pt in soft wrist restraints.
[2021-08-01 12:13] LABS: Reflex Lactic Acid Yes or No Add Lactic
[2021-08-01] MEDS: SODIUM CHLORIDE 0.9% IV 1,000 ML 150 ML IV CONT ×2 (12:52→21:35)
--- NOTE | 2021-08-01 13:51 | PM.IMHP ---
H&P: HPI History of Present Illness Date/Time: 08/01/21 13:51 this is a 61-year-old male patient brought to the emergency room by ambulance from the [facility] because of a fall. The patient has a history of schizophrenia. The patient is not answering my questions. The patient has been up all night long and was very restless and walking around his room he smelled of urine he was trying to walk up a ramp any lost his balance and fell on the left side of his body. He had no head or neck injury that was witnessed. The patient is nonverbal. His temperature this morning was 99.3. The patient was found to have UTI and was started on Rocephin. His white count is 11.4. Creatinine 1.4 and his baseline is usually normal. Anion gap is 23. Lactic was 8.1 now 6.0. Calcium was 10.5. The patient appears to be dehydrated. The chest x-ray was read as no acute cardiopulmonary disease. The patient was aggressive in the emergency room and had to be restrained. Patient was given IV fluids, IV Ativan, Rocephin, IV Tylenol, Toradol, and Haldol. The patient is being admitted to inpatient services on the date of service of 08/01/2021. Chief Complaint: Agitated Review of Systems Review of Systems: ROS unobtainable: Yes unobtainable due to medical condition PMFSH Past Medical History Medical History (Updated 08/01/21 @ 16:39 by Madeleine Li NP) Anxiety Catatonic schizophrenia DM (diabetes mellitus) H/O: HTN (hypertension) Hyperlipidemia Hypertension Sepsis Shingles UTI (urinary tract infection) Surgical History Surgical History No history of previous surgery Family History Family History (Updated 08/01/21 @ 16:45 by Madeleine Li NP) Unknown Caregiver unable to obtain copy of document Social History Social History (Updated 08/01/21 @ 16:46 by Madeleine Li NP) Social History: The patient is single. Nonsmoker. No drug or alcohol. The patient lives in a [facility]. Mother and father . The patient is nonverbal and was previously listed as a full code. Smoking status: Never smoker Gender identity (if verbalized by the patient): Male Meds Home Medications and Allergies Allergies Allergy/AdvReac Type Severity Reaction Status Date / Time No Known Allergies Allergy Verified 03/19/20 17:32 Vital Signs Vital Signs - 24 hr 08/01/21 07:36 08/01/21 07:44 08/01/21 10:28 Temperature 37.7 C H 37.2 C Pulse Rate 137 H Respiratory Rate 23 H 20 Blood Pressure 188/94 H Pulse Oximetry 99 97 08/01/21 10:30 08/01/21 11:34 08/01/21 12:02 Temperature 37.2 C Pulse Rate 129 H 123 H Respiratory Rate 21 H 23 H Blood Pressure 134/83 124/76 Pulse Oximetry 97 98 Exam Const: General: cooperative, comfortable, well developed, awake and Physically active Nutritional Appearance: average body habitus and well nourished Orientation/consciousness: oriented to person HENMT: Head: normal to inspection, No palpable skull fracture present, normocephalic and atraumatic Ears: hearing grossly normal bilaterally General nose exam: Normal external nose present Eyes: General: appearance normal, both eyes and all related structures EOM: EOMs intact bilaterally Neck: Neck: normal visual inspection Chest: Chest palpation & inspection: normal inspection of the chest Resp: Effort & Inspection: normal respiratory effort Auscultation: clear to auscultation bilaterally Percussion: percussion normal Cardio: Palpation: normal PMI Rate: regular rate Rhythm: regular rhythm Heart sounds: S1 normal heart sound present and S2 normal heart sound present Peripheral pulses: Peripheral pulses 2+ throughout GI: Inspection: normal to inspection Percussion: Yes normal to percussion Auscultation: normal bowel sounds Rectal Exam: deferred Skin: General skin exam: normal color Trauma: no lacerations or abrasions Wounds: wounds noted (Blister on the bot
--- NOTE | 2021-08-01 17:47 | ADMGEN ---
This patient, Janice Dumont, was admitted to IMU Room 203-01 at 1631, report received from Sharon ED RN. Patient/family oriented to hospital policies and general routines including ID bracelet, bed and alarms, visiting hours, pain management, procedures, bathroom and other care routines, personal items, smoking policy, room service/diet, and visiting hours. Information on how to activate the Rapid Response Team has been discussed. Patient/Family are encouraged to report perceived risks to care and to ask questions if they do not understand what they are told or what they should do.
[2021-08-01 19:04] LABS: Lactic Acid Reflex 1.4 mmol/L (0.7-2.1)
[2021-08-01] MEDS: LORazepam INJ (*CRX) 2 MG/ML VIAL 0.5 MG IV PUSH (20:29)
[2021-08-01 21:29] LABS: SARS-CoV-2 RNA PCR Negative
[2021-08-02] VITALS (12 sets, daily range): BP systolic 124–150; BP diastolic 71–85; PULSE 51–88; RESP 16–20; TEMP 36.2–36.7; O2SAT 97–100
--- NOTE | 2021-08-02 00:07 | PC.NURSE ---
Patient sitter in room at 2345. Patient is asleep. Restraints removed at 0000. No signs of injury noted.
[2021-08-02] MEDS: SODIUM CHLORIDE 0.9% IV 1,000 ML 150 ML IV CONT ×3 (04:17→22:36)
[2021-08-02 05:40] LABS: Basophils Percent Auto 0.3 % (0.2-1.2); Eosinophils Absolute Auto 0.1 K/mm3 (0-0.3); Eosinophils Percent Auto 0.7 % (0-4.4); Immature Granulocyte Absolute 0.03 K/mm3 (0.00-0.031); Immature Granulocyte Percent A 0.4 % (0-0.5); Lymphocytes Absolute Auto 2.75 K/mm3 (0.9-3.2); Lymphocytes Percent Auto 37.7 % (18.3-44.2); Mean Corpuscular HGB Conc 30.6 g/dl (32-36); Mean Corpuscular Hemoglobin 28.6 pg (26-34); Mean Corpuscular Volume 93.8 fl (80-100); Mean Platelet Volume 11.2 fl (7.4-10.4); Monocytes Absolute Auto 0.8 K/mm3 (0.1-0.6); Monocytes Percent Auto 10.4 % (2.6-8.5); Neutrophils Absolute Auto 3.7 K/mm3 (1.3-6.7); Neutrophils Percent Auto 50.5 % (45.5-73.1); Platelet Count Result 144 k/mm3 (150-375); Red Blood Count 3.84 M/mm3 (4.6-6.20); Red Cell Distribution Width 13.8 % (11.5-14.5); White Blood Count 7.3 K/mm3 (4.5-10.0)
[2021-08-02 05:46] LABS: Lactic Acid Reflex 0.5 mmol/L (0.7-2.1)
[2021-08-02 05:48] LABS: Anion Gap 8 mmol/L (8-16); Blood Urea Nitrogen 23 mg/dL (9-20); Calcium 8.8 mg/dL (8.4-10.2); Carbon Dioxide 22 mmol/L (22-30); Chloride 108 mmol/L (98-107); Estimated CRCL calculation 100 ml/min; Estimated Glomerular Filt Rate > 60; Glucose 72 mg/dL (65-110); Lactate Dehydrogenase 605 U/L (313-618); Potassium 3.6 mmol/L (3.4-5.0); Sodium 138 mmol/L (137-145)
[2021-08-02] MEDS: APIXABAN 5 MG TABLET BY MOUTH ×2 (09:47→18:51)
[2021-08-02] MEDS: FAMOTIDINE 20 MG TABLET BY MOUTH (09:47)
[2021-08-02] MEDS: FUROSEMIDE 20 MG TABLET BY MOUTH (09:47)
[2021-08-02] MEDS: NIFEdipine 30 MG TAB.ER.24 PO (09:48)
[2021-08-02] MEDS: METOPROLOL SUCCINATE EXT REL 50 MG TABCR PO (09:48)
[2021-08-02] MEDS: SERTRALINE HCL 50 MG TABLET 100 MG BY MOUTH (09:48)
[2021-08-02] MEDS: CHOLECALCIFEROL 400 UNITS TABLET (VIT D) PO (09:49)
[2021-08-02] MEDS: DIVALPROEX SODIUM DR 250 MG TABEC 500 MG PO (09:49)
[2021-08-02] MEDS: EZETIMIBE 10 MG TABLET BY MOUTH (09:49)
[2021-08-02] MEDS: BENZTROPINE MESYLATE 0.5 MG TABLET BY MOUTH ×2 (09:49→18:51)
[2021-08-02 13:08] LABS: Glucose Point of Care 94 mg/dl (65-105)
--- NOTE | 2021-08-02 13:37 | PM.IMPN ---
Progress Note: A&P Assessment and Plan (1) Urinary tract infection: Qualifiers: Hematuria presence: without hematuria Urinary tract infection type: site unspecified Qualified Code(s): N39.0 - Urinary tract infection, site not specified Code(s): N39.0 - Urinary tract infection, site not specified Status: Acute Assessment and Plan: Patient's lactic is very high. Continue with IV fluids. White count is 7.4. Continue with Rocephin. Urine and blood cultures pending. Anion gap is 23. Lactic was elevated. Patient's lactic was 8.1 and now at 6.0. (2) Hyperlipidemia: Code(s): E78.5 - Hyperlipidemia, unspecified Status: Chronic Assessment and Plan: Continue with home medications check liver enzymes daily. (3) Hypertension: Code(s): I10 - Essential (primary) hypertension Status: Chronic Assessment and Plan: Awaiting medication list. P.r.n. hydralazine until then. (4) Anxiety: Code(s): F41.9 - Anxiety disorder, unspecified Status: Chronic Assessment and Plan: P.r.n. Ativan. (5) GILBERTO (acute kidney injury): Code(s): N17.9 - Acute kidney failure, unspecified Status: Acute Assessment and Plan: Patient appears to be dry. Patient's calcium level was slightly elevated. Continue with IV fluids. Creatinine is 1.4. (6) Agitation: Code(s): R45.1 - Restlessness and agitation Status: Acute Assessment and Plan: Continue with home medications and p.r.n. Ativan. Additional Plan 08/02/2021. Patient is clinically better. Urine cultures are pending. Plan is to continue with IV antibiotics, if stays okay possible discharge in the morning. Subjective Date/time seen: 08/02/21 13:37 Patient was seen during the morning rounds today. Feels slightly better. No shortness of breath or chest pain. No abdominal pain, nausea, no vomiting. Mood stable. Review of Systems Review of Systems: ROS unobtainable: Yes unobtainable due to medical condition Exam Const: General: cooperative, comfortable, well developed, awake and Physically active Nutritional Appearance: average body habitus and well nourished Orientation/consciousness: oriented to person HENMT: Head: normal to inspection, No palpable skull fracture present, normocephalic and atraumatic Ears: hearing grossly normal bilaterally General nose exam: Normal external nose present Eyes: General: appearance normal, both eyes and all related structures EOM: EOMs intact bilaterally Neck: Neck: normal visual inspection Chest: Chest palpation & inspection: normal inspection of the chest Resp: Effort & Inspection: normal respiratory effort Auscultation: clear to auscultation bilaterally Percussion: percussion normal Cardio: Palpation: normal PMI Rate: regular rate Rhythm: regular rhythm Heart sounds: S1 normal heart sound present and S2 normal heart sound present Peripheral pulses: Peripheral pulses 2+ throughout GI: Inspection: normal to inspection Auscultation: normal bowel sounds Rectal Exam: deferred Skin: General skin exam: normal color Trauma: no lacerations or abrasions Wounds: wounds noted (Blister on the bottom of left foot) Neuro: General: oriented to person Extrem: General: normal to inspection Right upper extremity: normal to inspection Left upper extremity: normal to inspection Right lower extremity: normal to inspection Left lower extremity: normal to inspection and foot (Blister to left foot) Psych: Speech and movement: Other speech and movement exam findings present (Psych) (Nonverbal) Affect: Labile affect present Attitude: Belligerent attititude/behavior present and Guarded attititude/behavior present Insight: Poor insight present (Psych) Judgement: Poor judgement present (Psych) Other: The patient is nonverbal. Objective Data Vital Signs Vital Signs: Vital Signs - 24 hr 08/01/21 14:02 08/01/21 14:33 08/01/21 16:45 Temperature
[2021-08-02] MEDS: LORazepam INJ (*CRX) 2 MG/ML VIAL 0.5 MG IV PUSH (15:43)
[2021-08-02 17:13] LABS: Glucose Point of Care 97 mg/dl (65-105)
[2021-08-02] MEDS: ATORVASTATIN 40 MG TABLET BY MOUTH (19:53)
[2021-08-03] VITALS (13 sets, daily range): BP systolic 125–154; BP diastolic 74–85; PULSE 47–72; RESP 16–22; TEMP 36.2–36.8; O2SAT 97–100
[2021-08-03] MEDS: SODIUM CHLORIDE 0.9% IV 1,000 ML 150 ML IV CONT ×3 (05:34→22:00)
[2021-08-03] MEDS: FUROSEMIDE 20 MG TABLET BY MOUTH (08:56)
[2021-08-03] MEDS: BENZTROPINE MESYLATE 0.5 MG TABLET BY MOUTH ×2 (08:56→16:27)
[2021-08-03] MEDS: EZETIMIBE 10 MG TABLET BY MOUTH (08:56)
[2021-08-03] MEDS: FAMOTIDINE 20 MG TABLET BY MOUTH (08:56)
[2021-08-03] MEDS: APIXABAN 5 MG TABLET BY MOUTH ×2 (08:56→16:27)
[2021-08-03] MEDS: CHOLECALCIFEROL 400 UNITS TABLET (VIT D) PO (08:56)
[2021-08-03] MEDS: NIFEdipine 30 MG TAB.ER.24 PO (08:56)
[2021-08-03] MEDS: SERTRALINE HCL 50 MG TABLET 100 MG BY MOUTH (08:56)
[2021-08-03] MEDS: DIVALPROEX SODIUM DR 250 MG TABEC 500 MG PO (08:56)
[2021-08-03] MEDS: METOPROLOL SUCCINATE EXT REL 50 MG TABCR PO (08:58)
--- NOTE | 2021-08-03 10:16 | PM.IMPN ---
Progress Note: A&P Assessment and Plan (1) Urinary tract infection: Qualifiers: Hematuria presence: without hematuria Urinary tract infection type: site unspecified Qualified Code(s): N39.0 - Urinary tract infection, site not specified Code(s): N39.0 - Urinary tract infection, site not specified Status: Acute Assessment and Plan: Patient's lactic is very high. Continue with IV fluids. White count is 7.4. Continue with Rocephin. Urine and blood cultures pending. Anion gap is 23. Lactic was elevated. Patient's lactic was 8.1 and now at 6.0. (2) Hyperlipidemia: Code(s): E78.5 - Hyperlipidemia, unspecified Status: Chronic Assessment and Plan: Continue with home medications check liver enzymes daily. (3) Hypertension: Code(s): I10 - Essential (primary) hypertension Status: Chronic Assessment and Plan: Awaiting medication list. P.r.n. hydralazine until then. (4) Anxiety: Code(s): F41.9 - Anxiety disorder, unspecified Status: Chronic Assessment and Plan: P.r.n. Ativan. (5) GILBERTO (acute kidney injury): Code(s): N17.9 - Acute kidney failure, unspecified Status: Acute Assessment and Plan: Patient appears to be dry. Patient's calcium level was slightly elevated. Continue with IV fluids. Creatinine is 1.4. (6) Agitation: Code(s): R45.1 - Restlessness and agitation Status: Acute Assessment and Plan: Continue with home medications and p.r.n. Ativan. Additional Plan 08/02/2021. Patient is clinically better. Urine cultures are pending. Plan is to continue with IV antibiotics, if stays okay possible discharge in the morning. 08/03/2021 Patient is feeling slightly better today no new overnight complaints. Patient has E coli UTI infection. Plan is to continue current treatment discharge in the morning. Increase activity as tolerated. Subjective Date/time seen: 08/03/21 10:16 Patient was seen during the morning rounds today. Patient is feeling slightly better. No shortness of breath or chest pain. No abdominal pain, nausea, no vomiting. Mood stable. Review of Systems Review of Systems: All systems reviewed & are unremarkable except as noted in HPI and below (the history and physical examination.) Exam Const: General: cooperative, comfortable, well developed, awake and Physically active Nutritional Appearance: average body habitus and well nourished Orientation/consciousness: oriented to person HENMT: Head: normal to inspection, No palpable skull fracture present, normocephalic and atraumatic Ears: hearing grossly normal bilaterally General nose exam: Normal external nose present Eyes: General: appearance normal, both eyes and all related structures EOM: EOMs intact bilaterally Neck: Neck: normal visual inspection Chest: Chest palpation & inspection: normal inspection of the chest Resp: Effort & Inspection: normal respiratory effort Auscultation: clear to auscultation bilaterally Percussion: percussion normal Cardio: Palpation: normal PMI Rate: regular rate Rhythm: regular rhythm Heart sounds: S1 normal heart sound present and S2 normal heart sound present Peripheral pulses: Peripheral pulses 2+ throughout GI: Inspection: normal to inspection Auscultation: normal bowel sounds Rectal Exam: deferred Skin: General skin exam: normal color Trauma: no lacerations or abrasions Wounds: wounds noted (Blister on the bottom of left foot) Neuro: General: oriented to person Extrem: General: normal to inspection Right upper extremity: normal to inspection Left upper extremity: normal to inspection Right lower extremity: normal to inspection Left lower extremity: normal to inspection and foot (Blister to left foot) Psych: Speech and movement: Other speech and movement exam findings present (Psych) (Nonverbal) Affect: Labile affect present Attitude: Guarded attititude/behavior present Insight
[2021-08-03] MEDS: ATORVASTATIN 40 MG TABLET BY MOUTH (22:00)
[2021-08-04] VITALS: BP 137/78; PULSE 52; RESP 16; TEMP 35.6; O2SAT 98
[2021-08-04 04:00] VITALS: BP 141/80; PULSE 50; PULSE 54; RESP 18; TEMP 36.1; O2SAT 99
[2021-08-04 08:00] VITALS: BP 144/77; PULSE 47; PULSE 52; RESP 18; TEMP 36.9; O2SAT 100
--- NOTE | 2021-08-04 09:59 | PM.DS ---
DS: Admitting Diagnosis Discharge Date 08/04/2021 Admitting Diagnosis Urinary tract infection DS: Discharge Diagnosis Discharge Diagnosis (1) Urinary tract infection: Qualifiers: Hematuria presence: without hematuria Urinary tract infection type: site unspecified Qualified Code(s): N39.0 - Urinary tract infection, site not specified Code(s): N39.0 - Urinary tract infection, site not specified Status: Acute Assessment and Plan: Patient's lactic is very high. Continue with IV fluids. White count is 7.4. Continue with Rocephin. Urine and blood cultures pending. Anion gap is 23. Lactic was elevated. Patient's lactic was 8.1 and now at 6.0. (2) Hyperlipidemia: Code(s): E78.5 - Hyperlipidemia, unspecified Status: Chronic Assessment and Plan: Continue with home medications check liver enzymes daily. (3) Hypertension: Code(s): I10 - Essential (primary) hypertension Status: Chronic Assessment and Plan: Awaiting medication list. P.r.n. hydralazine until then. (4) Anxiety: Code(s): F41.9 - Anxiety disorder, unspecified Status: Chronic Assessment and Plan: P.r.n. Ativan. (5) GILBERTO (acute kidney injury): Code(s): N17.9 - Acute kidney failure, unspecified Status: Acute Assessment and Plan: Patient appears to be dry. Patient's calcium level was slightly elevated. Continue with IV fluids. Creatinine is 1.4. (6) Agitation: Code(s): R45.1 - Restlessness and agitation Status: Acute Assessment and Plan: Continue with home medications and p.r.n. Ativan. DS: Summary Hospital Course Reason for hospitalization: Urinary tract infection Hospital Course: 61 years old patient from senior living was admitted complains of having generalized weakness and episode of fall. No injuries were noted. Patient did have urinary tract infection. Urine culture showed E coli sensitive to Bactrim. Patient did not have any complication during the stay in the hospital. Today patient is feeling better. Patient is discharged back to senior living in stable condition. Patient in bed monitor as an outpatient. Status at Discharge Cognitive/behavioral status at discharge: Stable Functional status at discharge: independent ambulation Overall status at discharge: patient is back to baseline Time Spent with Patient Time attestation: Total time spent providing and/or coordinating discharge services: Time spent: Greater than 30 minutes Exam Const: General: cooperative, comfortable, well developed, awake and Physically active Nutritional Appearance: average body habitus and well nourished Orientation/consciousness: oriented to person HENMT: Head: normal to inspection, No palpable skull fracture present, normocephalic and atraumatic Ears: hearing grossly normal bilaterally General nose exam: Normal external nose present Eyes: General: appearance normal, both eyes and all related structures EOM: EOMs intact bilaterally Neck: Neck: normal visual inspection Chest: Chest palpation & inspection: normal inspection of the chest Resp: Effort & Inspection: normal respiratory effort Auscultation: clear to auscultation bilaterally Percussion: percussion normal Cardio: Palpation: normal PMI Rate: regular rate Rhythm: regular rhythm Heart sounds: S1 normal heart sound present and S2 normal heart sound present Peripheral pulses: Peripheral pulses 2+ throughout GI: Inspection: normal to inspection Auscultation: normal bowel sounds Rectal Exam: deferred Skin: General skin exam: normal color Trauma: no lacerations or abrasions Wounds: wounds noted (Blister on the bottom of left foot) Neuro: General: oriented to person Extrem: General: normal to inspection Right upper extremity: normal to inspection Left upper extremity: normal to inspection Right lower extremity: normal to inspection Left lower extremity: normal to inspection and foot (B
[2021-08-04 12:00] VITALS: BP 144/79; PULSE 57; PULSE 61; RESP 18; TEMP 36.7; O2SAT 100; O2SAT 98
[2021-08-04 12:42] LABS: EDCOVIDSCREEN Negative (Negative)
[2021-08-04] MEDS: APIXABAN 5 MG TABLET BY MOUTH (13:45)
[2021-08-04] MEDS: FUROSEMIDE 20 MG TABLET BY MOUTH (13:45)
[2021-08-04 13:47] VITALS: PULSE 60
[2021-08-04 14:01] VITALS: O2SAT 95
== END 2021-08-04 14:41 | DRG 690 ==
LOC: ANHED 11:22 → ANHIMU 08-02 10:11
PROVIDERS: Nurse Practitioner; Admitting Provider Internal Medicine; Emergency Provider Emergency Medicine; Visit Provider Internal Medicine
DX: N39.0 Urinary tract infection, site not specified (principal); F20.2 Catatonic schizophrenia; N17.9 Acute kidney failure, unspecified; B96.20 Unspecified Escherichia coli [E. coli] as the cause of diseases classified elsewhere; E78.5 Hyperlipidemia, unspecified; I10 Essential (primary) hypertension; F41.9 Anxiety disorder, unspecified; R45.1 Restlessness and agitation; E11.9 Type 2 diabetes mellitus without complications; W19.XXXA Unspecified fall, initial encounter; Z20.822 Contact with and (suspected) exposure to COVID-19
CPT/HCPCS: 36415; 51701; 70450; 71045; 80048; 80053; 81001; 82948; 83605; 83615; 83735; 84443; 85025; 86140; 87040; 87077; 87086; 87186; 87426; 93005; 96361; 96365; 96367; 96372; 96375; 96376; 97161; 99285; A9270; C9803; J0131; J0696; J1630; J1885; J2060; J7030; U0003; U0005

== ENCOUNTER 2021-12-28 07:30 | Emergency (ER) | payer OTHER, SELFPAY ==
[2021-12-28] VITALS (19 sets, daily range): BP systolic 99–112; BP diastolic 69–75; PULSE 55–70; RESP 11–21; TEMP 36.4; O2SAT 98–100
--- NOTE | ~2021-12-28 | CT_ITS ---
EXAMINATION: CT brain wo con DATE: 12/28/2021 08:08 INDICATION: Fall. TECHNIQUE: Computed tomography (CT) of the head was performed without intravenous contrast. The mA wa s adjusted according to patient size. Iterative reconstruction technique was employed. The dose-lengt h product was 605.33 mGy-cm. COMPARISON: Head CT 08/01/2021 FINDINGS: There is no intracranial hemorrhage, acute infarction, or abnormal intracranial mass lesion . The ventricles are normal in size. There is mild mucosal thickening in the paranasal sinuses. The o rbits are normal. The mastoid air cells are normal. There is abundant cerumen in the compliance auditor y canals. IMPRESSION: 1. Normal brain. Reviewed, dictated and finalized at location A. IMPRESSION: 1. Normal brain.
--- NOTE | 2021-12-28 07:38 | ED.FALL ---
HPI - Fall General Chief Complaint: Fall Stated Complaint: Fall Time Seen by Provider: 12/28/21 07:34 History of Present Illness HPI Narrative: 61-year-old male presenting to the emergency department from a custodial for evaluation after having unwitnessed fall. Patient does have history of schizophrenia at baseline. Patient also has history of being combative. Patient is currently medicated. Patient is denying any complaints at this time. Patient states he does recall the fall but is unsure what caused it. Patient states he was unable to get up for afterwards but denies any pain or injury. Related Data Home Medications Medication Instructions Recorded Confirmed apixaban 5 mg tablet (Eliquis) 5 mg BID 08/01/21 08/01/21 atorvastatin 40 mg tablet 40 mg QHS 08/01/21 08/01/21 benztropine 0.5 mg tablet 0.5 mg BID 08/01/21 08/01/21 clonidine 0.2 mg/24 hr weekly 0.2 patch WEEKLY 08/01/21 08/01/21 transdermal patch divalproex 500 mg tablet,delayed 500 mg PO DAILY 08/01/21 08/01/21 release ezetimibe 10 mg tablet 10 mg DAILY 08/01/21 08/01/21 famotidine 20 mg tablet 20 mg DAILY 08/01/21 08/01/21 haloperidol 5 mg tablet 5 mg BID 08/01/21 08/01/21 haloperidol 5 mg tablet 5 mg Q4H PRN Agitation 08/01/21 08/01/21 lorazepam 1 mg tablet 1 mg QID 08/01/21 08/01/21 metoprolol tartrate 50 mg tablet 50 mg DAILY 08/01/21 08/01/21 nifedipine 30 mg tablet,extended 30 mg PO DAILY 08/01/21 08/01/21 release 24 hr sertraline 50 mg tablet 75 mg PO DAILY 12/28/21 Allergies Allergy/AdvReac Type Severity Reaction Status Date / Time No Known Allergies Allergy Verified 12/28/21 07:42 Review of Systems Review of Systems: Patient denies complaints of pain or injury. ROS unobtainable: Yes unobtainable due to mental status PMFSH Past Medical History Medical History (Updated 12/28/21 @ 10:20 by Arnaldo Kim MD) Anxiety Catatonic schizophrenia DM (diabetes mellitus) H/O: HTN (hypertension) Hyperlipidemia Hypertension Sepsis Shingles UTI (urinary tract infection) Surgical History Surgical History No history of previous surgery Family History Family History (Updated 08/01/21 @ 16:45 by Madeleine Li NP) Unknown Caregiver unable to obtain copy of document Social History Social History (Updated 08/01/21 @ 16:46 by Madeleine Li NP) Social History: The patient is single. Nonsmoker. No drug or alcohol. The patient lives in a custodial. Mother and father . The patient is nonverbal and was previously listed as a full code. Smoking status: Unknown if ever smoked Gender identity (if verbalized by the patient): Male Spiritual care concerns: No Exam Narrative: APPEARANCE: Well appearing, no pain, no distress, well-nourished. HEAD: normocephalic, atraumatic. EYES: PERRLA/EOMI, conjunctivae clear. NOSE: Normal no drainage EARS:TMS clear with good light reflex. NECK: Supple. No adenopathy, no masses. RESPIRATORY: Airway patent, respirations nonlabored. Clear to auscultation bilaterally, no rales, rhonchi, wheezing. CARDIOVASCULAR: Regular rate and rhythm without murmurs rubs or gallops. ABDOMINAL: Soft, nontender, nondistended, normal bowel sounds MUSCULOSKELETAL: Moves all extremities. Strength/ROM intact, No edema, No calf tenderness. NEURO: Alert. Cranial nerves II through XII intact. Grossly intact SKIN: Warm, dry. Normal Color Course Course Emergency Course: Head CT was negative for acute intracranial abnormality. Patient was able to ambulate at his baseline. Patient was discharged back to his custodial in stable condition. Vital Signs Vital signs: Vital Signs Temperature 97.6 F 12/28/21 07:32 Pulse Rate 70 12/28/21 07:32 Respiratory Rate 16 12/28/21 07:32 Blood Pressure 112/71 12/28/21 07:32 Pulse Oximetry 98 12/28/21 07:32 Oxygen Delivery Room Air 12/28/21 07:32 Temperature 97.6 F 12/28/21 07:
--- NOTE | 2021-12-28 10:20 | PC.NURSE ---
[facility] [address] trip# [phone]
--- NOTE | 2021-12-28 11:40 | PC.NURSE ---
pt resting on stretcher. no distress noted. waiting ems arrival for transport back to [facility].
== END 2021-12-28 11:50 ==
PROVIDERS: Emergency Provider Emergency Medicine
DX: S09.90XA Unspecified injury of head, initial encounter (principal); E11.9 Type 2 diabetes mellitus without complications; I10 Essential (primary) hypertension; F20.2 Catatonic schizophrenia; F41.9 Anxiety disorder, unspecified; Z87.440 Personal history of urinary (tract) infections; Z79.01 Long term (current) use of anticoagulants; W19.XXXA Unspecified fall, initial encounter
CPT/HCPCS: 70450; 99284

== ENCOUNTER 2022-04-01 08:53 | Emergency (ER) | payer OTHER, SELFPAY ==
[2022-04-01] VITALS (9 sets, daily range): BP systolic 134–167; BP diastolic 82–97; PULSE 82–116; RESP 16–33; TEMP 36.8; O2SAT 97–99
--- NOTE | ~2022-04-01 | XR_ITS ---
EXAMINATION: XR chest 1V INDICATION: Pain after fall TECHNIQUE: AP view of the chest is obtained. COMPARISON: 08/01/2021 FINDINGS: The lungs are free of acute opacities. No pleural effusion or pneumothorax. The cardiomedia stinal silhouette is normal. The visualized bones and soft tissues are unremarkable. IMPRESSION: 1. No acute cardiopulmonary abnormality. Reviewed, dictated and finalized at location A.
--- NOTE | ~2022-04-01 | XR_ITS ---
EXAMINATION: XR pelvis 1-2V INDICATION: Pain after fall TECHNIQUE: AP view of the pelvis is obtained. COMPARISON: None available FINDINGS: Bone alignment is normal. No fracture is identified. 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 Phleboliths are noted in the pelvis. IMPRESSION: 1. No acute osseous abnormality. Reviewed, dictated and finalized at location A.
--- NOTE | ~2022-04-01 | CT_ITS ---
EXAMINATION: CT brain wo con DATE: 04/01/2022 11:30 INDICATION: Fall. TECHNIQUE: Computed tomography (CT) of the head was performed without intravenous contrast. The mA wa s adjusted according to patient size. Iterative reconstruction technique was employed. The dose-lengt h product was 605.33 mGy-cm. COMPARISON: Head CT 12/28/2021 FINDINGS: There is no intracranial hemorrhage, acute infarction, or abnormal intracranial mass lesion . The ventricles are normal in size. The orbits are normal. There is mild mucosal thickening in the p aranasal sinuses. The mastoid air cells are normal. IMPRESSION: 1. Normal brain. Reviewed, dictated and finalized at location B. IMPRESSION: 1. Normal brain.
--- NOTE | 2022-04-01 09:27 | ED.FALL ---
HPI - Fall General Chief Complaint: Fall Stated Complaint: fall Time Seen by Provider: 04/01/22 09:12 Source: patient and EMS Mode of arrival: EMS Limitations: dementia History of Present Illness HPI Narrative: This is a 62 year old male that presents to the ER after an unwitnessed fall today at nursing facility. Patient is reportedly alert and oriented at baseline. He does not report any pain. They sent patient in for evaluation due to him being on a blood thinner. Reportedly the machine clothing worker found him sitting on the floor in the hallway. Related Data Home Medications Medication Instructions Recorded Confirmed apixaban 5 mg tablet (Eliquis) 5 mg BID 08/01/21 08/01/21 atorvastatin 40 mg tablet 40 mg QHS 08/01/21 08/01/21 benztropine 0.5 mg tablet 0.5 mg BID 08/01/21 08/01/21 clonidine 0.2 mg/24 hr weekly 0.2 patch WEEKLY 08/01/21 08/01/21 transdermal patch divalproex 500 mg tablet,delayed 500 mg PO DAILY 08/01/21 08/01/21 release ezetimibe 10 mg tablet 10 mg DAILY 08/01/21 08/01/21 famotidine 20 mg tablet 20 mg DAILY 08/01/21 08/01/21 haloperidol 5 mg tablet 5 mg BID 08/01/21 08/01/21 haloperidol 5 mg tablet 5 mg Q4H PRN Agitation 08/01/21 08/01/21 lorazepam 1 mg tablet 1 mg QID 08/01/21 08/01/21 metoprolol tartrate 50 mg tablet 50 mg DAILY 08/01/21 08/01/21 nifedipine 30 mg tablet,extended 30 mg PO DAILY 08/01/21 08/01/21 release 24 hr sertraline 50 mg tablet 75 mg PO DAILY 12/28/21 cholecalciferol (vitamin D3) 125 125 mcg PO DAILY 04/01/22 mcg (5,000 unit) capsule furosemide 20 mg tablet 20 mg PO DAILY 04/01/22 Allergies Allergy/AdvReac Type Severity Reaction Status Date / Time No Known Allergies Allergy Verified 04/01/22 09:07 Review of Systems Review of Systems: ROS unobtainable: Yes unobtainable due to medical condition PMFSH Past Medical History Medical History (Updated 04/01/22 @ 11:59 by Divina Salvador PA-C) Anxiety Catatonic schizophrenia DM (diabetes mellitus) H/O: HTN (hypertension) Hyperlipidemia Hypertension Sepsis Shingles UTI (urinary tract infection) Surgical History Surgical History No history of previous surgery Family History Family History (Updated 08/01/21 @ 16:45 by Madeleine Li NP) Unknown Caregiver unable to obtain copy of document Social History Social History (Updated 08/01/21 @ 16:46 by Madeleine Li NP) Social History: The patient is single. Nonsmoker. No drug or alcohol. The patient lives in a long-term. Mother and father . The patient is nonverbal and was previously listed as a full code. Smoking status: Unknown if ever smoked Gender identity (if verbalized by the patient): Male Spiritual care concerns: No Exam Narrative: GENERAL: Well-appearing, well-nourished, and in no acute distress. HEAD: Normocephalic, atraumatic. EYES: PERRLA and EOMI. ENT: Nares clear, no rhinorrhea or epistaxis. Mucous membranes moist. Oropharynx without tonsillar hypertrophy exudate or other lesions. Bilateral TMs pearly alfaro non-bulging NECK: Supple. No adenopathy or masses. No midline cervical spine tenderness CHEST: Clear to auscultation. No respiratory distress. No wheezes rales or rhonchi HEART: Regular rate and rhythm. No murmur heard. Normal peripheral pulses. BACK: No midline thoracic or lumbar spine tenderness EXTREMITIES: Normal range of motion. No edema. SKIN: Warm, dry, no rash. NEURO: No focal deficits. Alert and oriented x1. PSYCH: Normal mood and affect Course Vital Signs Vital signs: Vital Signs Temperature 98.2 F 04/01/22 08:53 Pulse Rate 110 H 04/01/22 08:53 Respiratory Rate 20 04/01/22 08:53 Blood Pressure 143/93 H 04/01/22 08:53 Pulse Oximetry 98 04/01/22 08:53 Oxygen Delivery Room Air 04/01/22 08:53 Temperature 98.2 F 04/01/22 08:53 Pulse Rate 104 H 04/01/22 11:01 Respiratory Rate 27 H 04/01/22 11:01 Blood Pressure 157/87 H
[2022-04-01] MEDS: LORazepam INJ (*CRX) 2 MG/ML VIAL 1 MG IM ×2 (09:50→10:46)
== END 2022-04-01 12:45 ==
PROVIDERS: Emergency Provider Emergency Medicine
DX: Z04.3 Encounter for examination and observation following other accident (principal); E11.9 Type 2 diabetes mellitus without complications; I10 Essential (primary) hypertension; E78.5 Hyperlipidemia, unspecified; F41.9 Anxiety disorder, unspecified; F20.2 Catatonic schizophrenia; Z87.440 Personal history of urinary (tract) infections; Z79.01 Long term (current) use of anticoagulants; W19.XXXA Unspecified fall, initial encounter
CPT/HCPCS: 70450; 71045; 72170; 96372; 99284; J2060

== ENCOUNTER 2023-01-08 20:36 | Observation (INO) | payer OTHER, SELFPAY ==
[2023-01-08] VITALS (13 sets, daily range): BP systolic 145–158; BP diastolic 94–110; PULSE 86–117; RESP 13–27; TEMP 36.8; O2SAT 95–100
--- NOTE | ~2023-01-08 | CT_ITS ---
Non-contrast Head CT History: Altered mental status COMPARISON: 04/01/2022 Technique: Axial non-contrast imaging of the brain was performed. Dose reduction technique was used on this scan by utilizing automated exposure control and iterative reconstruction technique. The dose -length product (DLP) was 605.33 mGy-cm. Findings: There is no evidence of intracranial hemorrhage, mass lesion, or acute infarct. Brain par enchyma appears normal. The ventricles and subarachnoid spaces are normal in size. The calvarium ap pears normal. The visualized paranasal sinuses and mastoid air cells are clear. Impression: No significant abnormality seen. Reviewed, dictated and finalized at location . Impression: No significant abnormality seen.
--- NOTE | 2023-01-08 20:43 | ECG_ITS ---
Measurements Intervals [place] Rate: 111 P: 44 RI: 137 QRS: -9 QRSD: 82 T: 118 QT: 344 QTc: 469 Interpretive Statements SINUS TACHYCARDIA POSSIBLE LEFT ATRIAL ENLARGEMENT ST-T WAVE ABNORMALITY IN ANTEROLAT/HIGH LAT LEADS- CONSIDER ISCHEMIA BASELINE ARTIFACT- I, II, III, AVR, AVL, AVF, V1-V6 ABNORMAL ECG COMPARED TO ECG 08/01/2021 11:16:35 NO SIGNIFICANT CHANGES Electronically Signed On 01-08-2023 21:18:12 CDT by Memo Iverson D.O.
[2023-01-08 21:16] LABS: Basophils Percent Auto 0.3 % (0.2-1.2); Eosinophils Percent Auto 0.1 % (0-4.4); Hematocrit 45.5 % (42.0-52.0); Hemoglobin 14.5 g/dL (14.0-18.0); Immature Granulocyte Absolute 0.05 K/mm3 (0.00-0.031); Immature Granulocyte Percent A 0.6 % (0-0.5); Lymphocytes Absolute Auto 1.89 K/mm3 (0.9-3.2); Lymphocytes Percent Auto 21.2 % (18.3-44.2); Mean Corpuscular HGB Conc 31.9 g/dl (32-36); Mean Corpuscular Hemoglobin 28.6 pg (26-34); Mean Corpuscular Volume 89.7 fl (80-100); Mean Platelet Volume 10.6 fl (7.4-10.4); Monocytes Absolute Auto 1.1 K/mm3 (0.1-0.6); Monocytes Percent Auto 12.1 % (2.6-8.5); Neutrophils Absolute Auto 5.8 K/mm3 (1.3-6.7); Neutrophils Percent Auto 65.7 % (45.5-73.1); Platelet Count Result 243 k/mm3 (150-375); Red Blood Count 5.07 M/mm3 (4.6-6.20); Red Cell Distribution Width 13.1 % (11.5-14.5); White Blood Count 8.9 K/mm3 (4.5-10.0)
[2023-01-08 21:18] LABS: Alanine Aminotransferase 32 U/L (6-50); Albumin Level 4.9 g/dL (3.5-5.1); Alkaline Phosphatase 82 U/L (38-126); Anion Gap 16 mmol/L (8-16); Aspartate Amino Transferase 48 U/L (17-59); Bilirubin,Total 0.7 mg/dL (0.2-1.3); Blood Urea Nitrogen 29 mg/dL (9-20); Calcium 10.7 mg/dL (8.4-10.2); Carbon Dioxide 21 mmol/L (22-30); Chloride 109 mmol/L (98-107); Estimated CRCL calculation 42 ml/min; Estimated Glomerular Filt Rate 54; Glucose 106 mg/dL (65-110); Potassium 3.7 mmol/L (3.4-5.0); Sodium 146 mmol/L (137-145)
[2023-01-08 21:21] LABS: INR 1.1; Partial Thromboplastin Time 20.2 SECONDS (22.3-36.8); Prothrombin Time 14.7 Seconds (11.1-14.7)
--- NOTE | 2023-01-08 22:26 | PC.NURSE ---
Pa notified that pt was bladder scanned and it was 0. pt has a diaper on and it was wet. pt had old crusty stool on bottom. skin is c/d/i. pt is refusing to speak. Pt was found walking in room and was placed on a bed alarm. pt has a very flat affect. Pt arrived very dirty. pt had stuck on food on his left hand. socks are black and pt appears not to have a bath in a while
[2023-01-08] MEDS: LACTATED RINGERS 1,000 ML 999 ML IV CONT (22:31)
[2023-01-08 22:34] LABS: Creatine Kinase 661 U/L (55-170)
--- NOTE | 2023-01-08 22:55 | ED.AMS ---
HPI - Altered Mental Status General Chief Complaint: Altered Mental Status <Divina Salvador PA-C - Last Filed: 01/08/23 23:49> Stated Complaint: altered loc <Divina Salvador PA-C - Last Filed: 01/08/23 23:49> Time Seen by Provider: 01/08/23 22:20 <Divina Salvador PA-C - Last Filed: 01/08/23 23:49> Source: EMS <Divina Salvador PA-C - Last Filed: 01/08/23 23:49> Mode of arrival: EMS <ASHLEIGH Vora Last Filed: 01/08/23 23:49> Limitations: other (patient does not answer questions, history of catatonic schizophrenia) <Divina Salvador PA-C - Last Filed: 01/08/23 23:49> History of Present Illness HPI narrative: This is a 62 year old male that presents to the ER for altered mental status. Patient sent in from his nursing facility. Patient is currently nonverbal but will shake his head. Refusing to follow commands. <Divina Salvador PA-C - Last Filed: 01/08/23 23:49> Related Data Home Medications: Home Medications Medication Instructions Recorded Confirmed apixaban 5 mg tablet (Eliquis) 5 mg PO BID 08/01/21 01/09/23 atorvastatin 40 mg tablet 40 mg PO QHS 08/01/21 01/09/23 benztropine 0.5 mg tablet 0.5 mg PO BID 08/01/21 01/09/23 clonidine 0.2 mg/24 hr weekly 0.2 patch WEEKLY 08/01/21 01/09/23 transdermal patch divalproex 500 mg tablet,delayed 500 mg PO DAILY 08/01/21 01/09/23 release ezetimibe 10 mg tablet 10 mg QNOON 08/01/21 01/09/23 famotidine 20 mg tablet 20 mg PO DAILY 08/01/21 01/09/23 haloperidol 5 mg tablet 5 mg PO BID 08/01/21 01/09/23 haloperidol 5 mg tablet 5 mg PO Q4H PRN Agitation 08/01/21 01/09/23 lorazepam 1 mg tablet 1 mg PO QID 08/01/21 01/09/23 metoprolol tartrate 50 mg tablet 50 mg DAILY 08/01/21 01/09/23 nifedipine 30 mg tablet,extended 30 mg PO DAILY 08/01/21 01/09/23 release 24 hr sertraline 50 mg tablet 75 mg PO DAILY 12/28/21 01/09/23 cholecalciferol (vitamin D3) 125 125 mcg PO QNOON 04/01/22 01/09/23 mcg (5,000 unit) capsule furosemide 20 mg tablet 20 mg PO DAILY 04/01/22 01/09/23 deutetrabenazine 6 mg tablet 6 mg PO BID 01/09/23 01/09/23 (Austedo) <Divina Salvador PA-C - Last Filed: 01/08/23 23:49> Allergies/Adverse Reactions: Allergies Allergy/AdvReac Type Severity Reaction Status Date / Time No Known Allergies Allergy Verified 04/01/22 09:07 <Divina Salvador PA-C - Last Filed: 01/08/23 23:49> Review of Systems Review of Systems: ROS unobtainable: Yes unobtainable due to mental status <Divina Salvador PA-C - Last Filed: 01/08/23 23:49> [facility] Past Medical History Medical History: Medical History Anxiety Catatonic schizophrenia DM (diabetes mellitus) H/O: HTN (hypertension) Hyperlipidemia Hypertension Sepsis Shingles UTI (urinary tract infection) <Divina Salvador PA-C - Last Filed: 01/08/23 23:49> Surgical History Surgical History: Surgical History No history of previous surgery <Divina Salvador PA-C - Last Filed: 01/08/23 23:49> Family History Family History: Family History Unknown Caregiver unable to obtain copy of document <SAHLEIGH Vora Last Filed: 01/08/23 23:49> Social History Social History: Social History Social History: The patient is single. Nonsmoker. No drug or alcohol. The patient lives in a fpc. Mother and father . The patient is nonverbal and was previously listed as a full code. Smoking status: Unknown if ever smoked Alcohol intake: unknown Substance use: unknown Gender identity (if verbalized by the patient): Male Spiritual care concerns: No <Divina Salvador PA-C - Last Filed: 01/08/23 23:49> Exam Narrative: GENERAL: Well-appearing, well-nourished, and in no acute distress. HEAD: Normocephalic, a
--- NOTE | 2023-01-08 23:02 | PC.NURSE ---
pharm called for ivf
[2023-01-08] MEDS: DEXTROSE 5% 1,000 ML 1,000 ML 100 ML IV CONT (23:33)
[2023-01-09] VITALS (7 sets, daily range): BP systolic 112–156; BP diastolic 73–85; PULSE 58–102; RESP 16–18; TEMP 36.4–36.7; O2SAT 96–99; BMI 23.8
[2023-01-09 00:48] LABS: Appearance Urine Clear (Clear); Bacteria Urine None Seen /hpf; Bilirubin Urine Negative (Negative); Blood Urine 2+ (Negative); Color Urine Dark Yellow (Yellow); Glucose Urine UA Negative (Negative); Ketones Urine 1+ mg/dL (Negative); Leukocyte Esterase Ur Trace LEU/UL (Negative); Need Manual Microscopic Reviewed; Nitrate Urine Negative (Negative); Protein Urine Trace mg/dL (Negative); Specific Grav Ur 1.028 (1.001-1.035); Squamous Epithelial Cell Urine Occasional /hpf (Few); WBC Urine 0-5 /hpf; pH Urine 5.5 (5.0-9.0)
--- NOTE | 2023-01-09 01:01 | PC.NURSE ---
report given to Rosy
[2023-01-09 01:02] LABS: Add Urine Microscopic? YES
--- NOTE | 2023-01-09 01:44 | PM.IMHP ---
H&P: HPI History of Present Illness Date/Time: 01/09/23 01:44 Chief Complaint: Catatonic Narrative: This is a 62-year-old male with past medical history significant for catatonic schizophrenia patient resides at a assisted he comes in after being catatonic now for several days most of the history has been obtained upon reviewing medical records and emergency room. Preliminary workup was significant for a sodium of 146, creatinine of 1.6, BUN 29 CPK 600. Patient has been admitted for further evaluation management and treatment. Review of Systems Review of Systems: ROS unobtainable: Yes unobtainable due to medical condition (Catatonic schizophrenia) PMFSH Past Medical History Medical History Anxiety Catatonic schizophrenia DM (diabetes mellitus) H/O: HTN (hypertension) Hyperlipidemia Hypertension Sepsis Shingles UTI (urinary tract infection) Surgical History Surgical History No history of previous surgery Family History Family History Unknown Caregiver unable to obtain copy of document Social History Social History Social History: The patient is single. Nonsmoker. No drug or alcohol. The patient lives in a assisted. Mother and father . The patient is nonverbal and was previously listed as a full code. Smoking status: Unknown if ever smoked Alcohol intake: unknown Substance use: unknown Gender identity (if verbalized by the patient): Male Spiritual care concerns: No Meds Home Medications and Allergies Home Medications Medication Instructions Recorded Confirmed Type apixaban 5 mg tablet (Eliquis) 5 mg PO BID 08/01/21 01/09/23 History atorvastatin 40 mg tablet 40 mg PO QHS 08/01/21 01/09/23 History benztropine 0.5 mg tablet 0.5 mg PO BID 08/01/21 01/09/23 History clonidine 0.2 mg/24 hr weekly 0.2 patch WEEKLY 08/01/21 01/09/23 History transdermal patch divalproex 500 mg tablet,delayed 500 mg PO DAILY 08/01/21 01/09/23 History release ezetimibe 10 mg tablet 10 mg QNOON 08/01/21 01/09/23 History famotidine 20 mg tablet 20 mg PO DAILY 08/01/21 01/09/23 History haloperidol 5 mg tablet 5 mg PO BID 08/01/21 01/09/23 History haloperidol 5 mg tablet 5 mg PO Q4H PRN Agitation 08/01/21 01/09/23 History lorazepam 1 mg tablet 1 mg PO QID 08/01/21 01/09/23 History metoprolol tartrate 50 mg tablet 50 mg DAILY 08/01/21 01/09/23 History nifedipine 30 mg tablet,extended 30 mg PO DAILY 08/01/21 01/09/23 History release 24 hr sertraline 50 mg tablet 75 mg PO DAILY 12/28/21 01/09/23 History cholecalciferol (vitamin D3) 125 125 mcg PO QNOON 04/01/22 01/09/23 History mcg (5,000 unit) capsule furosemide 20 mg tablet 20 mg PO DAILY 04/01/22 01/09/23 History deutetrabenazine 6 mg tablet 6 mg PO BID 01/09/23 01/09/23 History (Austedo) Allergies Allergy/AdvReac Type Severity Reaction Status Date / Time No Known Allergies Allergy Verified 04/01/22 09:07 Vital Signs Vital Signs - 24 hr 01/08/23 20:37 01/08/23 21:01 01/08/23 20:48 Temperature 98.3 F 98.3 F Pulse Rate 117 H 111 H 114 H Respiratory Rate 16 20 21 H Blood Pressure 158/94 H 145/103 H Pulse Oximetry 96 100 Oxygen Delivery Room Air 01/08/23 21:00 01/08/23 21:30 01/08/23 21:31 Temperature Pulse Rate 115 H 108 H 106 H Respiratory Rate 23 H 23 H 24 H Blood Pressure 155/110 H Pulse Oximetry 98 Oxygen Delivery 01/08/23 22:02 01/08/23 22:05 01/08/23 22:15 Temperature Pulse Rate 108 H 105 H 95 Respiratory Rate 27 H 27 H 23 H Blood Pressure 150/110 H 153/106 H Pulse Oximetry 95 Oxygen Delivery 01/08/23 22:35 01/08/23 22:53 01/08/23 23:09 Temperature Pulse Rate 91 89 87 Respiratory Rate 13 22 H 15 Blood Pressure Pulse Oximetry 96 97 Oxygen Delivery 01/08/
[2023-01-09] MEDS: HALOPERIDOL LACTATE 5 MG/ML VIAL IM (02:09)
[2023-01-09] MEDS: LORazepam INJ (*CRX) 2 MG/ML VIAL 1 MG IV PUSH (02:09)
--- NOTE | 2023-01-09 02:14 | ADMGEN ---
This patient, Janice Dumont, was admitted to Medical Room 249-01. Patient/family oriented to hospital policies and general routines including ID bracelet, bed and alarms, visiting hours, pain management, procedures, bathroom and other care routines, personal items, smoking policy, room service/diet, and visiting hours. Information on how to activate the Rapid Response Team has been discussed. Patient/Family are encouraged to report perceived risks to care and to ask questions if they do not understand what they are told or what they should do.
[2023-01-09 06:00] LABS: Basophils Percent Auto 0.3 % (0.2-1.2); Eosinophils Percent Auto 0.4 % (0-4.4); Hematocrit 39.5 % (42.0-52.0); Hemoglobin 12.5 g/dL (14.0-18.0); Immature Granulocyte Absolute 0.03 K/mm3 (0.00-0.031); Immature Granulocyte Percent A 0.3 % (0-0.5); Lymphocytes Absolute Auto 2.78 K/mm3 (0.9-3.2); Lymphocytes Percent Auto 29.3 % (18.3-44.2); Mean Corpuscular HGB Conc 31.6 g/dl (32-36); Mean Corpuscular Hemoglobin 28.7 pg (26-34); Mean Corpuscular Volume 90.8 fl (80-100); Mean Platelet Volume 10.5 fl (7.4-10.4); Monocytes Percent Auto 10.6 % (2.6-8.5); Neutrophils Absolute Auto 5.6 K/mm3 (1.3-6.7); Neutrophils Percent Auto 59.1 % (45.5-73.1); Platelet Count Result 187 k/mm3 (150-375); Red Blood Count 4.35 M/mm3 (4.6-6.20); Red Cell Distribution Width 13.1 % (11.5-14.5); White Blood Count 9.5 K/mm3 (4.5-10.0)
[2023-01-09 06:10] LABS: Anion Gap 9 mmol/L (8-16); Blood Urea Nitrogen 25 mg/dL (9-20); Calcium 9.4 mg/dL (8.4-10.2); Carbon Dioxide 26 mmol/L (22-30); Chloride 108 mmol/L (98-107); Estimated CRCL calculation 83 ml/min; Estimated Glomerular Filt Rate > 60; Glucose 112 mg/dL (65-110); Potassium 3.4 mmol/L (3.4-5.0); Sodium 143 mmol/L (137-145)
--- NOTE | 2023-01-09 07:22 | PM.IMPN ---
Progress Note: A&P Assessment and Plan (1) Acute kidney injury: Code(s): N17.9 - Acute kidney failure, unspecified Status: Acute Assessment and Plan: Cr 1.6 on admission, now 0.9 after fluid resuscitation Will hold Lasix today and restart tomorrow (2) Acute hypernatremia: Code(s): E87.0 - Hyperosmolality and hypernatremia Status: Acute Assessment and Plan: Mild. Na 146 on admission. Repeat labs this am Na 143 Currently on D5 @ 100 ml per hour (3) Altered mental status: Qualifiers: Altered mental status type: unspecified Qualified Code(s): R41.82 - Altered mental status, unspecified Code(s): R41.82 - Altered mental status, unspecified Status: Acute Assessment and Plan: On Haldol and Ativan p.r.n. 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 taking PO intake appropraitely (5) Hypertension: Code(s): I10 - Essential (primary) hypertension Status: Chronic Assessment and Plan: Continue clonidine patch, nifedipine, metoprolol SBPs ranging 120-150s this admission Trend blood pressures (6) Rhabdomyolysis: Code(s): M62.82 - Rhabdomyolysis Status: Acute Assessment and Plan: CK initially 661 Receiving IV fluids Likely secondary to immobilization Repeat CK tomorrow Subjective Date/time seen: 01/09/23 07:22 Interval history: HPI obtained from chart This is a 62-year-old male with past medical history significant for catatonic schizophrenia patient resides at a skilled nursing he comes in after being catatonic now for several days most of the history has been obtained upon reviewing medical records and emergency room.? Preliminary workup was significant for a sodium of 146, creatinine of 1.6, BUN 29 CPK 600 Interval history: 01/09: Patient is seen resting in bed and appears comfortable. He is able to verbalize his name, that he is in the hospital, and correct month and year. He denies pain. He denies shortness of breath, chest pain, headache, dizziness, nausea, of I vomiting, diarrhea, and constipation. I asked him if he had been taking his medications at his facility and he says no. When asked why he says that they were too many medications. I spoke with him about the importance of taking his medications as prescribed, particularly his psychiatric medications. It appears the patient has been taking his meds here without difficulty. Had told him I would discontinue any medications that did not seem pertinent, such as vitamins, however upon medication reconciliation all of his medications are indicated. Given his improvement in mentation since his arrival in the ER complaint observe him overnight and if he is still doing well tomorrow will discharge back to his facility. His sodium has normalized as well as his creatinine in with initiation of IV fluids. Will repeat CK in the morning. Review of Systems Review of Systems: All systems reviewed & are unremarkable except as noted in HPI and below Exam Narrative: General: generally well appearing, 62-year-old male, sitting up in bed, comfortable, NARD Neuro: awake, alert and oriented x4, speech clear but with delayed responses, no focal neuro deficits noted HEENMT: normocephalic, atraumatic, EOMI, sclerae anicteric, moist oral mucosa Respiratory: Clear to auscultation bilaterally without crackles, rhonchi or wheezes, nonlabored breathing Cardio: regular rate, regular rhythm with S1-S2 Abdomen: nondistended, normoactive bowel sounds, soft, nontender to palpation Extremities: no edema, erythema, or tenderness to palpation, DP pulses 2+ bilaterally Skin: no rashes or lesions, warm and dry Psych: affect blunted, judgement seems impaired Objective Data
[2023-01-09] MEDS: DEXTROSE 5% 1,000 ML 1,000 ML 100 ML IV CONT (10:25)
[2023-01-09] MEDS: DIVALPROEX SODIUM DR 250 MG TABEC 500 MG PO (10:29)
[2023-01-09] MEDS: NIFEdipine 30 MG TAB.ER.24 PO (10:30)
[2023-01-09] MEDS: BENZTROPINE MESYLATE 0.5 MG TABLET PO ×2 (10:30→16:37)
[2023-01-09] MEDS: APIXABAN 5 MG TABLET PO ×2 (10:30→20:08)
[2023-01-09] MEDS: SERTRALINE HCL 25 MG TABLET 75 MG PO (10:30)
[2023-01-09] MEDS: FAMOTIDINE 20 MG TABLET PO (10:30)
[2023-01-09] MEDS: METOPROLOL TARTRATE 50 MG TAB BY MOUTH (10:30)
[2023-01-09] MEDS: CHOLECALCIFEROL 1,000 UNITS TABLET 5000 UNITS PO (16:37)
[2023-01-10 04:50] VITALS: BP 134/76; PULSE 51; RESP 16; TEMP 37; O2SAT 97
[2023-01-10 06:26] LABS: Basophils Percent Auto 0.2 % (0.2-1.2); Eosinophils Absolute Auto 0.1 K/mm3 (0-0.3); Hemoglobin 11.9 g/dL (14.0-18.0); Immature Granulocyte Absolute 0.03 K/mm3 (0.00-0.031); Immature Granulocyte Percent A 0.4 % (0-0.5); Lymphocytes Absolute Auto 2.95 K/mm3 (0.9-3.2); Lymphocytes Percent Auto 36.2 % (18.3-44.2); Mean Corpuscular HGB Conc 30.5 g/dl (32-36); Mean Corpuscular Hemoglobin 27.7 pg (26-34); Mean Corpuscular Volume 90.9 fl (80-100); Mean Platelet Volume 10.8 fl (7.4-10.4); Monocytes Absolute Auto 0.7 K/mm3 (0.1-0.6); Neutrophils Absolute Auto 4.4 K/mm3 (1.3-6.7); Neutrophils Percent Auto 54.2 % (45.5-73.1); Platelet Count Result 183 k/mm3 (150-375); Red Blood Count 4.29 M/mm3 (4.6-6.20); Red Cell Distribution Width 13.1 % (11.5-14.5); White Blood Count 8.2 K/mm3 (4.5-10.0)
[2023-01-10 06:50] LABS: Alanine Aminotransferase 24 U/L (6-50); Albumin Level 3.7 g/dL (3.5-5.1); Alkaline Phosphatase 45 U/L (38-126); Anion Gap 7 mmol/L (8-16); Aspartate Amino Transferase 40 U/L (17-59); Bilirubin,Total 0.7 mg/dL (0.2-1.3); Blood Urea Nitrogen 17 mg/dL (9-20); Calcium 8.9 mg/dL (8.4-10.2); Carbon Dioxide 28 mmol/L (22-30); Chloride 104 mmol/L (98-107); Creatine Kinase 525 U/L (55-170); Estimated CRCL calculation 105 ml/min; Estimated Glomerular Filt Rate > 60; Glucose 89 mg/dL (65-110); Magnesium 1.9 mg/dL (1.6-2.3); Potassium 4.1 mmol/L (3.4-5.0); Sodium 139 mmol/L (137-145)
--- NOTE | 2023-01-10 07:43 | PM.IMPN ---
Progress Note: A&P Assessment and Plan (1) Altered mental status: Qualifiers: Altered mental status type: unspecified Qualified Code(s): R41.82 - Altered mental status, unspecified Code(s): R41.82 - Altered mental status, unspecified Status: Acute Assessment and Plan: On Haldol and Ativan p.r.n. 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 taking PO intake appropraitely (3) Acute hypernatremia: Code(s): E87.0 - Hyperosmolality and hypernatremia Status: Acute Assessment and Plan: Mild. Na 146 on admission. Repeat labs this am Na 139 NS at 100 ml per hour until he clears his CK. Mildly downtrending. (4) Acute kidney injury: Code(s): N17.9 - Acute kidney failure, unspecified Status: Acute Assessment and Plan: Cr 1.6 on admission, now 0.9 after fluid resuscitation Will hold Lasix today and restart tomorrow (5) Hypertension: Code(s): I10 - Essential (primary) hypertension Status: Chronic Assessment and Plan: Continue clonidine patch, nifedipine, metoprolol SBPs ranging 120-150s this admission Trend blood pressures (6) Rhabdomyolysis: Code(s): M62.82 - Rhabdomyolysis Status: Acute Assessment and Plan: CK initially 661-->525 Given patients psychiatric diagnosis and risk of non-compliance with medications I'd like to see his CK cleared or almost normal before d/c'ing back to the facility. Receiving IV fluids Likely secondary to immobilization Repeat CK tomorrow Subjective Date/time seen: 01/10/23 07:43 Interval history: HPI obtained from chart This is a 62-year-old male with past medical history significant for catatonic schizophrenia patient resides at a halfway he comes in after being catatonic now for several days most of the history has been obtained upon reviewing medical records and emergency room.? Preliminary workup was significant for a sodium of 146, creatinine of 1.6, BUN 29 CPK 600 Interval history: 01/09: Patient is seen resting in bed and appears comfortable. He is able to verbalize his name, that he is in the hospital, and correct month and year. He denies pain. He denies shortness of breath, chest pain, headache, dizziness, nausea, of I vomiting, diarrhea, and constipation. I asked him if he had been taking his medications at his facility and he says no. When asked why he says that they were too many medications. I spoke with him about the importance of taking his medications as prescribed, particularly his psychiatric medications. It appears the patient has been taking his meds here without difficulty. Had told him I would discontinue any medications that did not seem pertinent, such as vitamins, however upon medication reconciliation all of his medications are indicated. Given his improvement in mentation since his arrival in the ER complaint observe him overnight and if he is still doing well tomorrow will discharge back to his facility. His sodium has normalized as well as his creatinine in with initiation of IV fluids. Will repeat CK in the morning. 01/10: Patient is back to being nonverbal today. He nods yes and no to questions but will not speak. CK mildly down trending. Continue with IV fluids until she can use back to normal. Given patient's psychiatric history have concerns that he is not reliable to take enough p.o. intake to clear his CK. He is still taking his p.o. medications as prescribed. He denies pain in Review of Systems Review of Systems: ROS unobtainable: Yes unobtainable due to mental status Exam Narrative: General: generally well appearing, 62-year-old male,? sitting up in bed, comfortable, NARD Neuro: unable to assess mentation due to non-rekha
[2023-01-10] MEDS: SERTRALINE HCL 25 MG TABLET 75 MG PO (08:44)
[2023-01-10] MEDS: DIVALPROEX SODIUM DR 250 MG TABEC 500 MG PO (08:44)
[2023-01-10] MEDS: APIXABAN 5 MG TABLET PO ×2 (08:44→20:23)
[2023-01-10] MEDS: FAMOTIDINE 20 MG TABLET PO (08:44)
[2023-01-10] MEDS: NIFEdipine 30 MG TAB.ER.24 PO (08:45)
[2023-01-10] MEDS: METOPROLOL TARTRATE 50 MG TAB BY MOUTH (08:45)
[2023-01-10] MEDS: SODIUM CHLORIDE 0.9% IV 1,000 ML 100 ML IV CONT ×2 (08:45→18:58)
[2023-01-10] MEDS: BENZTROPINE MESYLATE 0.5 MG TABLET PO ×2 (08:45→16:35)
[2023-01-10] MEDS: CHOLECALCIFEROL 1,000 UNITS TABLET 5000 UNITS PO (11:25)
[2023-01-10] MEDS: LORazepam INJ (*CRX) 2 MG/ML VIAL 1 MG IV PUSH (12:52)
[2023-01-10 14:00] VITALS: BP 128/73; PULSE 71; RESP 16; TEMP 36.9; O2SAT 99
[2023-01-10] MEDS: HALOPERIDOL 5 MG TABLET PO (16:54)
[2023-01-10] MEDS: LORazepam (*CRX) 1 MG TABLET PO ×2 (16:54→20:23)
[2023-01-10 20:00] VITALS: PULSE 51; RESP 21; O2SAT 100
[2023-01-10 21:58] VITALS: BP 143/88; PULSE 51; RESP 21; TEMP 36.9; O2SAT 100
[2023-01-11] MEDS: SODIUM CHLORIDE 0.9% IV 1,000 ML 100 ML IV CONT (04:43)
[2023-01-11 06:00] VITALS: BP 121/80; PULSE 50; RESP 20; TEMP 36.5; O2SAT 99
--- NOTE | 2023-01-11 07:40 | PM.IMPN ---
Progress Note: A&P Assessment and Plan (1) Altered mental status: Qualifiers: Altered mental status type: unspecified Qualified Code(s): R41.82 - Altered mental status, unspecified Code(s): R41.82 - Altered mental status, unspecified Status: Acute Assessment and Plan: On Haldol and Ativan p.r.n. Catonic on admission. Recurrent periods of non verbal interaction, now on not wanting to take p.o. 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 Nurse yesterday said he became agitated and was up walking the halls trying to elope at one point. Gave prn Haldol and placed sitter for elopement risk. (3) Acute hypernatremia: Code(s): E87.0 - Hyperosmolality and hypernatremia Status: Acute Assessment and Plan: Mild. Na 146 on admission. Repeat labs this am Na 139 NS at 100 ml per hour until he clears his CK. Mildly downtrending. (4) Acute kidney injury: Code(s): N17.9 - Acute kidney failure, unspecified Status: Acute Assessment and Plan: Cr 1.6 on admission, now 0.9 after fluid resuscitation Will hold Lasix today and restart tomorrow (5) Hypertension: Code(s): I10 - Essential (primary) hypertension Status: Chronic Assessment and Plan: Continue clonidine patch, nifedipine, metoprolol SBPs ranging 120-150s this admission Trend blood pressures (6) Rhabdomyolysis: Code(s): M62.82 - Rhabdomyolysis Status: Acute Assessment and Plan: CK initially 661-->525--275 Given patients psychiatric diagnosis and risk of non-compliance with medications I'd like to see his CK cleared or almost normal before d/c'ing back to the facility. Receiving IV fluids Plan -had plans to discharge today but patient is now refusing am medications. Will attempt again later this afternoon. Subjective Date/time seen: 01/11/23 07:40 Interval history: HPI obtained from chart This is a 62-year-old male with past medical history significant for catatonic schizophrenia patient resides at a [facility] he comes in after being catatonic now for several days most of the history has been obtained upon reviewing medical records and emergency room.? Preliminary workup was significant for a sodium of 146, creatinine of 1.6, BUN 29 CPK 600 Interval history: 01/09: Patient is seen resting in bed and appears comfortable. He is able to verbalize his name, that he is in the hospital, and correct month and year. He denies pain. He denies shortness of breath, chest pain, headache, dizziness, nausea, of I vomiting, diarrhea, and constipation. I asked him if he had been taking his medications at his facility and he says no. When asked why he says that they were too many medications. I spoke with him about the importance of taking his medications as prescribed, particularly his psychiatric medications. It appears the patient has been taking his meds here without difficulty. Had told him I would discontinue any medications that did not seem pertinent, such as vitamins, however upon medication reconciliation all of his medications are indicated. Given his improvement in mentation since his arrival in the ER complaint observe him overnight and if he is still doing well tomorrow will discharge back to his facility. His sodium has normalized as well as his creatinine in with initiation of IV fluids. Will repeat CK in the morning. 01/10: Patient is back to being nonverbal today. He nods yes and no to questions but will not speak. CK mildly down trending. Continue with IV fluids until she can use back to normal. Given patient's psychiatric history have concerns that he is not reliable to take enough p.o. intake to clear his CK. He is still taking his p.o. medi
[2023-01-11 08:16] LABS: Basophils Percent Auto 0.3 % (0.2-1.2); Eosinophils Absolute Auto 0.1 K/mm3 (0-0.3); Eosinophils Percent Auto 1.1 % (0-4.4); Hematocrit 37.4 % (42.0-52.0); Hemoglobin 11.6 g/dL (14.0-18.0); Immature Granulocyte Absolute 0.01 K/mm3 (0.00-0.031); Immature Granulocyte Percent A 0.2 % (0-0.5); Lymphocytes Absolute Auto 2.62 K/mm3 (0.9-3.2); Lymphocytes Percent Auto 39.8 % (18.3-44.2); Mean Corpuscular Hemoglobin 28.6 pg (26-34); Mean Corpuscular Volume 92.3 fl (80-100); Mean Platelet Volume 10.2 fl (7.4-10.4); Monocytes Absolute Auto 0.6 K/mm3 (0.1-0.6); Monocytes Percent Auto 8.3 % (2.6-8.5); Neutrophils Absolute Auto 3.3 K/mm3 (1.3-6.7); Neutrophils Percent Auto 50.3 % (45.5-73.1); Platelet Count Result 167 k/mm3 (150-375); Red Blood Count 4.05 M/mm3 (4.6-6.20); Red Cell Distribution Width 12.9 % (11.5-14.5); White Blood Count 6.6 K/mm3 (4.5-10.0)
[2023-01-11 08:26] LABS: Anion Gap 4 mmol/L (8-16); Blood Urea Nitrogen 14 mg/dL (9-20); Calcium 8.6 mg/dL (8.4-10.2); Carbon Dioxide 24 mmol/L (22-30); Chloride 107 mmol/L (98-107); Creatine Kinase 275 U/L (55-170); Estimated CRCL calculation 105 ml/min; Estimated Glomerular Filt Rate > 60; Glucose 88 mg/dL (65-110); Potassium 3.7 mmol/L (3.4-5.0); Sodium 135 mmol/L (137-145)
[2023-01-11 10:37] VITALS: BP 140/80; PULSE 55; O2SAT 100
--- NOTE | 2023-01-11 11:22 | PC.NURSE ---
Patient refusing to take PO morning medications, provider notified. Will attempt again later.
[2023-01-11] MEDS: HALOPERIDOL 5 MG TABLET PO ×2 (11:39→17:30)
[2023-01-11] MEDS: NIFEdipine 30 MG TAB.ER.24 PO (11:39)
[2023-01-11] MEDS: SERTRALINE HCL 25 MG TABLET 75 MG PO (11:40)
[2023-01-11] MEDS: LORazepam (*CRX) 1 MG TABLET PO ×2 (11:40→17:30)
[2023-01-11] MEDS: FAMOTIDINE 20 MG TABLET PO (11:41)
[2023-01-11] MEDS: DIVALPROEX SODIUM DR 250 MG TABEC 500 MG PO (11:52)
[2023-01-11] MEDS: FUROSEMIDE 20 MG TABLET PO (11:56)
[2023-01-11] MEDS: BENZTROPINE MESYLATE 0.5 MG TABLET PO ×2 (11:56→17:30)
[2023-01-11] MEDS: APIXABAN 5 MG TABLET PO (11:56)
[2023-01-11] MEDS: EZETIMIBE 10 MG TABLET PO (11:57)
--- NOTE | 2023-01-11 11:59 | PM.DS ---
DS: Admitting Diagnosis Discharge Date FridayJanuary 11 Admitting Diagnosis Acute hypernatremia DS: Discharge Diagnosis Discharge Diagnosis (1) Altered mental status: Qualifiers: Altered mental status type: unspecified Qualified Code(s): R41.82 - Altered mental status, unspecified Code(s): R41.82 - Altered mental status, unspecified Status: Acute Assessment and Plan: On Haldol and Ativan p.r.n. Catonic on admission. Recurrent periods of non verbal interaction, now on not wanting to take p.o. 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 Nurse yesterday said he became agitated and was up walking the halls trying to elope at one point. Gave prn Haldol and placed sitter for elopement risk. (3) Acute hypernatremia: Code(s): E87.0 - Hyperosmolality and hypernatremia Status: Acute Assessment and Plan: Mild. Na 146 on admission. Repeat labs this am Na 139 NS at 100 ml per hour until he clears his CK. Mildly downtrending. (4) Acute kidney injury: Code(s): N17.9 - Acute kidney failure, unspecified Status: Acute Assessment and Plan: Cr 1.6 on admission, now 0.9 after fluid resuscitation Will hold Lasix today and restart tomorrow (5) Hypertension: Code(s): I10 - Essential (primary) hypertension Status: Chronic Assessment and Plan: Continue clonidine patch, nifedipine, metoprolol SBPs ranging 120-150s this admission Trend blood pressures (6) Rhabdomyolysis: Code(s): M62.82 - Rhabdomyolysis Status: Acute Assessment and Plan: CK initially 661-->525--275 Given patients psychiatric diagnosis and risk of non-compliance with medications I'd like to see his CK cleared or almost normal before d/c'ing back to the facility. Receiving IV fluids Plan -had plans to discharge today but patient is now refusing am medications. Will attempt again later this afternoon. DS: Summary Hospital Course Hospital Course: You were admitted with hypernatremia, concerns for dehydration, and catatonia as you are not taking your psych meds at your outside facility. We gave you IV fluids and corrected your hypernatremia. You have been taking your medications appropriately for us. Your labs have normalized you are ready for discharge. Discharge disposition: Take medications as prescribed Monitor blood pressures Avoid social areas, you wear a mask when in social settings Encouraged to continue with yearly vaccinations Return to the emergency department if he developed sudden shortness of breath, chest pain, nausea, vomiting, upset stomach or intractable diarrhea Return to the emergency department if you develop fever greater than 101.5 Follow-up with the primary care physician within 1-2 weeks Thank you for [facility] for your healthcare needs Status at Discharge Cognitive/behavioral status at discharge: Back to baseline Time Spent with Patient Time attestation: Total time spent providing and/or coordinating discharge services: 32 Exam Narrative: General: generally well appearing, 62-year-old male,? laying in bed, comfortable, NARD Neuro: unable to assess mentation due to non-verbal pattern, , no focal neuro deficits noted HEENMT:? normocephalic, atraumatic, EOMI, sclerae anicteric, moist oral mucosa Respiratory:? Clear to auscultation bilaterally without crackles, rhonchi or wheezes, nonlabored breathing Cardio: regular rate, regular rhythm with S1-S2 Abdomen:? nondistended, normoactive bowel sounds, soft, nontender to palpation Extremities: no edema, erythema, or tenderness to palpation, DP pulses 2+ bilaterally Skin: no rashes or lesions, warm and dry Psych: affect blunted, non-verbal, withdrawn
[2023-01-11 14:22] LABS: EDCOVIDSCREEN Negative (Negative)
== END 2023-01-11 18:30 ==
LOC: ANHED 23:44 → ANH2MED 01-09 01:38
PROVIDERS: Nurse Practitioner Acute Care; Preventive Medicine Aerospace Medicine; Admitting Provider Internal Medicine; Emergency Provider Physician Assistant; PCP Internal Medicine; Visit Provider Student in an Organized Health Care Education/Training Program
DX: R41.82 Altered mental status, unspecified (principal); F20.2 Catatonic schizophrenia; E87.0 Hyperosmolality and hypernatremia; N17.9 Acute kidney failure, unspecified; M62.82 Rhabdomyolysis; Z20.822 Contact with and (suspected) exposure to COVID-19; I10 Essential (primary) hypertension; F41.9 Anxiety disorder, unspecified; E11.9 Type 2 diabetes mellitus without complications; R94.31 Abnormal electrocardiogram [ECG] [EKG]; E78.5 Hyperlipidemia, unspecified; R79.89 Other specified abnormal findings of blood chemistry; Z79.01 Long term (current) use of anticoagulants; Z79.899 Other long term (current) drug therapy; Z87.898 Personal history of other specified conditions; Z87.440 Personal history of urinary (tract) infections
CPT/HCPCS: 36415; 70450; 80048; 80053; 81001; 82550; 83735; 85025; 85610; 85730; 87426; 93005; 96361; 96365; 96372; 96375; 99285; A9270; C9803; G0378; J1630; J2060; J7030; J7070; J7120

== ENCOUNTER 2023-04-08 13:47 | Emergency (ER) | payer OTHER, SELFPAY ==
[2023-04-08] VITALS (9 sets, daily range): BP systolic 121–150; BP diastolic 70–89; PULSE 64–88; RESP 16–26; TEMP 36.3–36.8; O2SAT 96–100
--- NOTE | ~2023-04-08 | CT_ITS ---
EXAMINATION: CT brain wo con DATE: 04/08/2023 17:40 INDICATION: Altered mental status TECHNIQUE: Computed tomography (CT) of the head was performed without intravenous contrast. The mA wa s adjusted according to patient size. Iterative reconstruction technique was employed. Exam dose: 60 5.33 mGy-cm total exam DLP. COMPARISON: 01/08/2023 CT brain FINDINGS: Bilateral basal ganglia calcifications are noted, not likely of clinical significance. Bilateral carotid siphon internal carotid artery calcifications and vertebral artery and basilar jc ry calcifications are also noted. There is nonspecific diminished attenuation of the cerebral white m atter, likely due to chronic small vessel ischemic changes. No intracranial mass lesion or hemorrhage or cerebrovascular accident, midline shift or mass effect i s detected. No subdural or epidural hematoma. The mastoid air cells and included paranasal sinuses are normally developed and aerated. No fracture or bone destruction of the cranial vault. IMPRESSION: Cerebral atherosclerosis and chronic small vessel ischemic changes of the cerebral white matter No acute intracranial finding Reviewed, dictated and finalized at [facility]. Reviewed, dictated and finalized at [facility].
--- NOTE | ~2023-04-08 | XR_ITS ---
EXAMINATION: XR chest 1V portable DATE: 04/08/2023 17:01 INDICATION: Cough. Shortness of breath. TECHNIQUE: A single frontal view of the chest was obtained. COMPARISON: Chest single view 04/01/2022 FINDINGS: There is mild atelectasis at the lung bases. No pleural effusion or pneumothorax. The heart size is normal. IMPRESSION: 1. Mild atelectasis at the lung bases. Reviewed, dictated and finalized at [facility].
--- NOTE | 2023-04-08 14:54 | ECG_ITS ---
Measurements Intervals [place] Rate: 67 P: 58 [place]: 157 QRS: 3 QRSD: 85 T: 239 QT: 410 QTc: 434 Interpretive Statements SINUS RHYTHM MODERATE ST AND T-WAVE ABNORMALITY, CONSIDER ANTEROLATERAL ISCHEMIA [-0.1+ mV T WAVE IN V3-V6] BASELINE ARTIFACT PRESENT cOMPARED TO ECG 01/08/2023 20:52:38 SINUS RHYTHM NOW PRESENT Electronically Signed On 04-08-2023 20:00:12 CDT by Brittanie Blanca M.D.
[2023-04-08 15:30] LABS: Basophils Percent Auto 0.4 % (0.2-1.2); Eosinophils Percent Auto 0.1 % (0-4.4); Hematocrit 44.3 % (42.0-52.0); Hemoglobin 13.5 g/dL (14.0-18.0); Immature Granulocyte Absolute 0.02 K/mm3 (0.00-0.031); Immature Granulocyte Percent A 0.3 % (0-0.5); Lymphocytes Absolute Auto 2.26 K/mm3 (0.9-3.2); Mean Corpuscular HGB Conc 30.5 g/dl (32-36); Mean Corpuscular Volume 91.9 fl (80-100); Mean Platelet Volume 10.6 fl (7.4-10.4); Monocytes Absolute Auto 0.7 K/mm3 (0.1-0.6); Monocytes Percent Auto 8.3 % (2.6-8.5); Neutrophils Absolute Auto 4.8 K/mm3 (1.3-6.7); Neutrophils Percent Auto 61.9 % (45.5-73.1); Platelet Count Result 194 k/mm3 (150-375); Red Blood Count 4.82 M/mm3 (4.6-6.20); White Blood Count 7.8 K/mm3 (4.5-10.0)
[2023-04-08 15:40] LABS: INR 1.2; Prothrombin Time 15.9 Seconds (11.1-14.7)
[2023-04-08 15:41] LABS: Alanine Aminotransferase 40 U/L (6-50); Albumin Level 4.3 g/dL (3.5-5.1); Alkaline Phosphatase 75 U/L (38-126); Anion Gap 6 mmol/L (8-16); Aspartate Amino Transferase 34 U/L (17-59); Bilirubin,Total 0.7 mg/dL (0.2-1.3); Blood Urea Nitrogen 20 mg/dL (9-20); Calcium 9.6 mg/dL (8.4-10.2); Carbon Dioxide 31 mmol/L (22-30); Chloride 103 mmol/L (98-107); Estimated CRCL calculation 81 ml/min; Estimated Glomerular Filt Rate > 60; Glucose 83 mg/dL (65-110); Partial Thromboplastin Time 32.1 SECONDS (22.3-36.8); Sodium 140 mmol/L (137-145)
[2023-04-08 16:05] LABS: Influenza A QL RT-PCR Negative (Negative); Influenza B QL RT-PCR Negative (Negative); SARS-CoV-2 RNA PCR Negative (Negative)
[2023-04-08 16:50] LABS: Appearance Urine Clear (Clear); Bilirubin Urine Negative (Negative); Blood Urine Negative (Negative); Color Urine Yellow (Yellow); Glucose Urine UA Negative (Negative); Ketones Urine Trace mg/dL (Negative); Leukocyte Esterase Ur Negative LEU/UL (Negative); Nitrate Urine Negative (Negative); Protein Urine Negative (Negative); pH Urine 6.5 (5.0-9.0)
[2023-04-08 17:26] LABS: Add Urine Microscopic? NO
--- NOTE | 2023-04-08 18:09 | ED.AMS ---
HPI - Altered Mental Status General Chief Complaint: Altered Mental Status Stated Complaint: AMS Time Seen by Provider: 04/08/23 16:51 History of Present Illness HPI narrative: Patient is a 63-year-old male with a history of catatonic schizophrenia presenting from his [facility] due to altered mental status. half-way was unable to specify how he is altered. On arrival here, he is active and responding appropriately. He denies any complaints other than feeling hungry. Related Data Home Medications Medication Instructions Recorded Confirmed apixaban 5 mg tablet (Eliquis) 5 mg PO BID 08/01/21 01/09/23 atorvastatin 40 mg tablet 40 mg PO QHS 08/01/21 01/09/23 benztropine 0.5 mg tablet 0.5 mg PO BID 08/01/21 01/09/23 clonidine 0.2 mg/24 hr weekly 0.2 patch WEEKLY 08/01/21 01/09/23 transdermal patch divalproex 500 mg tablet,delayed 500 mg PO DAILY 08/01/21 01/09/23 release ezetimibe 10 mg tablet 10 mg QNOON 08/01/21 01/09/23 famotidine 20 mg tablet 20 mg PO DAILY 08/01/21 01/09/23 haloperidol 5 mg tablet 5 mg PO BID 08/01/21 01/09/23 haloperidol 5 mg tablet 5 mg PO Q4H PRN Agitation 08/01/21 01/09/23 lorazepam 1 mg tablet 1 mg PO QID 08/01/21 01/09/23 metoprolol tartrate 50 mg tablet 50 mg DAILY 08/01/21 01/09/23 nifedipine 30 mg tablet,extended 30 mg PO DAILY 08/01/21 01/09/23 release 24 hr sertraline 50 mg tablet 75 mg PO DAILY 12/28/21 01/09/23 cholecalciferol (vitamin D3) 125 125 mcg PO QNOON 04/01/22 01/09/23 mcg (5,000 unit) capsule furosemide 20 mg tablet 20 mg PO DAILY 04/01/22 01/09/23 deutetrabenazine 6 mg tablet 6 mg PO BID 01/09/23 01/09/23 (Austedo) Allergies Allergy/AdvReac Type Severity Reaction Status Date / Time No Known Allergies Allergy Verified 04/01/22 09:07 Review of Systems Review of Systems: All systems reviewed & are unremarkable except as noted in HPI and below PMFSH Past Medical History Medical History Anxiety Catatonic schizophrenia DM (diabetes mellitus) H/O: HTN (hypertension) Hyperlipidemia Hypertension Sepsis Shingles UTI (urinary tract infection) Surgical History Surgical History No history of previous surgery Family History Family History Unknown Caregiver unable to obtain copy of document Social History Social History Social History: The patient is single. Nonsmoker. No drug or alcohol. The patient lives in a assisted. Mother and father . The patient is nonverbal and was previously listed as a full code. Smoking status: Unknown if ever smoked Alcohol intake: unknown Substance use: unknown Gender identity (if verbalized by the patient): Male Spiritual care concerns: No Exam Narrative: GENERAL: Nontoxic, no acute distress, cooperative HEAD: Normocephalic, atraumatic. EYES: PERRLA and EOMI. ENT: Mucous membranes moist. NECK: Supple. CHEST: Clear to auscultation. No respiratory distress. HEART: Regular rate and rhythm ABDOMEN: Soft, nontender, nondistended EXTREMITIES: Normal range of motion. No edema. SKIN: Warm NEURO: At baseline, moving all extremities spontaneously, ambulating throughout the department with ease PSYCH: Somewhat bizarre affect but cooperative and pleasant Course Vital Signs Vital signs: Vital Signs Temperature 98 F 04/08/23 13:45 Pulse Rate 72 04/08/23 13:45 Respiratory Rate 16 04/08/23 13:45 Blood Pressure 121/87 04/08/23 13:45 Pulse Oximetry 100 04/08/23 13:45 Oxygen Delivery Room Air 04/08/23 13:45 Temperature 98.3 F 04/08/23 18:30 Pulse Rate 70 04/08/23 18:30 Respiratory Rate 16 04/08/23 18:30 Blood Pressure 126/78 04/08/23 18:30 Pulse Oximetry 98 04/08/23 18:30 Oxygen Delivery Room Air 04/08/23 13:45
== END 2023-04-08 19:29 | disposition home or self-care (01) ==
PROVIDERS: Emergency Provider Emergency Medicine; PCP Internal Medicine
DX: F20.2 Catatonic schizophrenia (principal); R41.82 Altered mental status, unspecified; F41.9 Anxiety disorder, unspecified; I10 Essential (primary) hypertension; E11.9 Type 2 diabetes mellitus without complications; Z79.01 Long term (current) use of anticoagulants
CPT/HCPCS: 36415; 70450; 71045; 80053; 81003; 85025; 85610; 85730; 87636; 93005; 99284

== ENCOUNTER 2023-09-03 17:59 | Emergency (ER) | payer OTHER, SELFPAY ==
--- NOTE | ~2023-09-03 | XR_ITS ---
EXAMINATION: XR chest 1V portable INDICATION: Pain after fall TECHNIQUE: Portable AP chest at 1834 hours COMPARISON: 04/08/2023 FINDINGS: There is mild atelectasis of the lung bases. The lungs are free of focal airspace opacities . No pleural effusion or pneumothorax. The cardiomediastinal silhouette is normal. IMPRESSION: 1. Mild atelectasis of the lung bases. Reviewed, dictated and finalized at location [facility].
--- NOTE | ~2023-09-03 | CT_ITS ---
EXAMINATION: CT cervical spine wo con DATE: 09/03/2023 19:18 INDICATION: Head injury TECHNIQUE: Computed tomography (CT) of the cervical spine was performed without intravenous contrast. The dose-length product (DLP) was 538.97 mGy-cm. Automated exposure control and iterative reconstruc tion technique were employed. COMPARISON: 12/18/2020 FINDINGS: Bone alignment is normal. There is no fracture. There is mild loss of intervertebral disc s pace height at C4-5. The vertebral body heights are maintained. The odontoid process is intact. The p revertebral soft tissues are normal. Small degenerative osteophytes project from the anterior endplat es of multiple vertebral bodies. There is mild bilateral facet joint osteoarthritis at C4-5. IMPRESSION: 1. Mild cervical spondylosis without acute findings or significant interval change. Reviewed, dictated and finalized at location [facility]. IMPRESSION: 1. Mild cervical spondylosis without acute findings or significant interval arnaud nge.
--- NOTE | ~2023-09-03 | CT_ITS ---
EXAMINATION: CT brain wo con INDICATION: Head injury COMPARISON: 03/19/2023 TECHNIQUE: Standard unenhanced head CT. The dose-length product (DLP) was 681.00 mGy-cm. The mA was a djusted according to patient size. Iterative reconstruction technique was employed. FINDINGS: No intracranial hemorrhage, acute infarction, or abnormal mass lesion. The ventricles are n ormal. No abnormal mass effect or midline shift. The alfaro-white matter differentiation is normal. The basal cisterns are patent. The orbits are normal. The paranasal sinuses, mastoids and calvarium are normal. IMPRESSION: 1. No acute intracranial abnormality. Reviewed, dictated and finalized at location [facility].
[2023-09-03 18:04] VITALS: PULSE 94; RESP 22; TEMP 37.5; O2SAT 99
[2023-09-03 18:13] VITALS: BP 121/87
--- NOTE | 2023-09-03 18:20 | ECG_ITS ---
Measurements Intervals [place] Rate: 88 P: 55 [place]: 141 QRS: 26 QRSD: 86 T: 65 QT: 360 QTc: 438 Interpretive Statements SINUS RHYTHM POSSIBLE LEFT ATRIAL ENLARGEMENT INCOMPLETE RIGHT BUNDLE BRANCH BLOCK DELAYED PRECORDIAL R/S TRANSITION LEFT VENTRICULAR HYPERTROPHY WIT ST-T CHANGES NONSPECIFIC ST & T-WAVE ABNORMALITY- INF/LAT LEADS BASELINE ARTIFACT- I, II, III, AVR, AVL, AVF BORDERLINE ECG NO PREVIOUS ECG AVAILABLE FOR COMPARISON Electronically Signed On 09-04-2023 6:22:07 CDT by Memo Iverson D.O.
--- NOTE | 2023-09-03 18:35 | ED.FALL ---
HPI - Fall General Chief Complaint: Fall Stated Complaint: fall Time Seen by Provider: 09/03/23 18:26 History of Present Illness HPI Narrative: 63-year-old male present to the emergency department for evaluation after having a ground level fall. Patient is essentially nonverbal but is able to communicate by other means and denies any pain or complaints. Related Data Allergies Allergy/AdvReac Type Severity Reaction Status Date / Time No Known Allergies Allergy Verified 09/04/23 17:07 Review of Systems Review of Systems: All systems reviewed & are unremarkable except as noted in HPI and below Exam Narrative: APPEARANCE: Well appearing, no pain, no distress, well-nourished. HEAD: normocephalic, atraumatic. EYES: PERRLA/EOMI, conjunctivae clear. NOSE: Normal no drainage EARS:TMS clear with good light reflex. THROAT: Pharynx clear, no exudate. NECK: Supple. No adenopathy, no masses. RESPIRATORY: Airway patent, respirations nonlabored. Clear to auscultation bilaterally, no rales, rhonchi, wheezing. CARDIOVASCULAR: Regular rate and rhythm without murmurs rubs or gallops. ABDOMINAL: Soft, nontender, nondistended, normal bowel sounds MUSCULOSKELETAL: Moves all extremities. Strength/ROM intact, No edema, No calf tenderness. NEURO: Alert. At neuro baseline SKIN: Warm, dry. Normal Color Course Course Emergency Course: imaging was negative and patient was discharged back to his care facility. Vital Signs Vital signs: Vital Signs Temperature 99.5 F 09/03/23 18:04 Pulse Rate 94 09/03/23 18:04 Respiratory Rate 22 H 09/03/23 18:04 Pulse Oximetry 99 09/03/23 18:04 Oxygen Delivery Room Air 09/03/23 18:04 Temperature 99.5 F 09/03/23 18:04 Pulse Rate 87 09/03/23 19:46 Respiratory Rate 20 09/03/23 19:46 Blood Pressure 143/89 H 09/03/23 19:46 Pulse Oximetry 99 09/03/23 19:46 Oxygen Delivery Room Air 09/03/23 18:04 MDM - Fall MDM Narrative Medical decision making narrative: 63-year-old male presents emergency department for evaluation after a fall at his care facility. Patient had negative imaging and patient denies any pain or complaint. Patient was discharged back to his care facility in stable condition. Lab Data Attestation: I reviewed the patient's lab results. 09/03/23 19:26 09/03/23 19:26 Labs: Lab Results 09/03/23 Range/Units 19:26 WBC 10.5 H (4.5-10.0) K/mm3 RBC 4.44 L (4.6-6.20) M/mm3 Hgb 12.7 L (14.0-18.0) g/dL Hct 39.3 L (42.0-52.0) % MCV 88.5 (80-100) fl MCH 28.6 (26-34) pg MCHC 32.3 (32-36) g/dl RDW 14.8 H (11.5-14.5) % Plt Count 419 H (150-375) k/mm3 MPV 9.4 (7.4-10.4) fl Immature Gran % (Auto) 1.1 H (0-0.5) % Neut % (Auto) 67.4 (45.5-73.1) % Lymph % (Auto) 16.7 L (18.3-44.2) % [place] % (Auto) 14.0 H (2.6-8.5) % Eos % (Auto) 0.7 (0-4.4) % Baso % (Auto) 0.1 L (0.2-1.2) % Lymph # (Auto) 1.74 (0.9-3.2) K/mm3 [place] # (Auto) 1.5 H (0.1-0.6) K/mm3 Eos # (Auto) 0.1 (0-0.3) K/mm3 Baso # (Auto) 0.0 (0.0-0.1) K/mm3 Abs Immat Gran (auto) 0.12 H (0.00-0.031) K/mm3 Absolute Neuts (auto) 7.1 H (1.3-6.7) K/mm3 Absolute Nucleated RBC 0.000 (0.0-0.012) K/mm3 Nucleated RBC % 0.0 (0.0-0.2) % Sodium 137 (137-145) mmol/L Potassium 4.0 (3.4-5.0) mmol/L Chloride 106 (98-107) mmol/L Carbon Dioxide 26 (22-30) mmol/L Anion Gap 5 L (8-16) mmol/L BUN 29 H (9-20) mg/dL Creatinine 0.90 (0.7-1.3) mg/dL Estim Creat Clear Calc Not Reportable Estimated GFR > 60 (59 - ) Glucose 98 (65-110) mg/dL Calcium 9.6 (8.4-10.2) mg/dL Discharge Plan Discharge Clinical Impression: Head injury Patient Disposition: [facility] Living Condition: Stable Instructions: Antibiotic Form, Head Injury (ED) Additional Instructions: Imaging was negative. Have close follow-up with your primary care physician. Follow-up/Referrals: Christina,Sophia
[2023-09-03 19:34] LABS: Basophils Percent Auto 0.1 % (0.2-1.2); Eosinophils Absolute Auto 0.1 K/mm3 (0-0.3); Eosinophils Percent Auto 0.7 % (0-4.4); Hematocrit 39.3 % (42.0-52.0); Hemoglobin 12.7 g/dL (14.0-18.0); Immature Granulocyte Absolute 0.12 K/mm3 (0.00-0.031); Immature Granulocyte Percent A 1.1 % (0-0.5); Lymphocytes Absolute Auto 1.74 K/mm3 (0.9-3.2); Lymphocytes Percent Auto 16.7 % (18.3-44.2); Mean Corpuscular HGB Conc 32.3 g/dl (32-36); Mean Corpuscular Hemoglobin 28.6 pg (26-34); Mean Corpuscular Volume 88.5 fl (80-100); Mean Platelet Volume 9.4 fl (7.4-10.4); Monocytes Absolute Auto 1.5 K/mm3 (0.1-0.6); Neutrophils Absolute Auto 7.1 K/mm3 (1.3-6.7); Neutrophils Percent Auto 67.4 % (45.5-73.1); Platelet Count Result 419 k/mm3 (150-375); Red Blood Count 4.44 M/mm3 (4.6-6.20); Red Cell Distribution Width 14.8 % (11.5-14.5); White Blood Count 10.5 K/mm3 (4.5-10.0)
[2023-09-03 19:46] VITALS: BP 143/89; PULSE 87; RESP 20; O2SAT 99
[2023-09-03 19:47] LABS: Anion Gap 5 mmol/L (8-16); Blood Urea Nitrogen 29 mg/dL (9-20); Calcium 9.6 mg/dL (8.4-10.2); Carbon Dioxide 26 mmol/L (22-30); Chloride 106 mmol/L (98-107); Estimated Glomerular Filt Rate > 60; Glucose 98 mg/dL (65-110); Sodium 137 mmol/L (137-145)
== END 2023-09-03 20:54 ==
PROVIDERS: Physician Assistant; Emergency Provider Emergency Medicine; PCP Internal Medicine
DX: S09.90XA Unspecified injury of head, initial encounter (principal); R94.31 Abnormal electrocardiogram [ECG] [EKG]; I45.10 Unspecified right bundle-branch block; I51.7 Cardiomegaly; W18.30XA Fall on same level, unspecified, initial encounter
CPT/HCPCS: 36415; 70450; 71045; 72125; 80048; 85025; 93005; 99284

== ENCOUNTER 2023-09-04 06:25 | Emergency (ER) | payer OTHER, SELFPAY ==
--- NOTE | ~2023-09-04 | CT_ITS ---
Non-contrast Head CT History: Status post fall COMPARISON: 09/03/2023 Technique: Axial non-contrast imaging of the brain was performed. Dose reduction technique was used on this scan by utilizing automated exposure control and iterative reconstruction technique. The dose -length product (DLP) was 1059.33 mGy-cm. Findings: There is no evidence of intracranial hemorrhage, mass lesion, or acute infarct. Brain par enchyma appears normal. The ventricles and subarachnoid spaces are normal in size. The calvarium ap pears normal. The visualized paranasal sinuses and mastoid air cells are clear. Impression: No significant abnormality seen. Reviewed, dictated and finalized at location . Impression: No significant abnormality seen.
--- NOTE | ~2023-09-04 | CT_ITS ---
Noncontrast CT scan of the cervical spine Technique: Multiple contiguous axial [address] images of the cervical spine were obtained and rec onstructed in 2D sagittal and coronal planes on the acquisition scanner. Dose reduction technique was used on this scan by utilizing automated exposure control, adjustment of the mA and/or kV according to patient size. The dose-length product (DLP) was 553.49 mGy-cm. Clinical History: Pain Findings: No fractures or dislocations. There are mild degenerative disc changes in the cervical spi ne. No prevertebral soft tissue swelling. Impression: No fracture or subluxation of the cervical spine. Reviewed, dictated and finalized at location . Impression: No fracture or subluxation of the cervical spine.
[2023-09-04 06:31] VITALS: BP 126/87; PULSE 102; RESP 16; TEMP 36.1; O2SAT 98
--- NOTE | 2023-09-04 06:50 | PC.NURSE ---
Sitter at bedside for safety. Pt continuing to climb out of bed, stating he wants to go home.
--- NOTE | 2023-09-04 07:14 | PC.NURSE ---
Report to MARCELINA Ramires. Pt back from successful CT.
--- NOTE | 2023-09-04 07:44 | ED.FALL ---
HPI - Fall General Chief Complaint: Fall Stated Complaint: glf Time Seen by Provider: 09/04/23 07:00 History of Present Illness HPI Narrative: Patient is a 63-year-old male who presents to the ER after having a fall that was unwitnessed at his care center. He was here last night for something similar. He is on blood thinner and there were concerned he could have a head bleed. Patient is awake alert and at his normal baseline. He is pleasantly confused. Related Data Home Medications Medication Instructions Recorded Confirmed apixaban 5 mg tablet (Eliquis) 5 mg PO BID 08/01/21 01/09/23 atorvastatin 40 mg tablet 40 mg PO QHS 08/01/21 01/09/23 benztropine 0.5 mg tablet 0.5 mg PO BID 08/01/21 01/09/23 clonidine 0.2 mg/24 hr weekly 0.2 patch WEEKLY 08/01/21 01/09/23 transdermal patch divalproex 500 mg tablet,delayed 500 mg PO DAILY 08/01/21 01/09/23 release ezetimibe 10 mg tablet 10 mg QNOON 08/01/21 01/09/23 famotidine 20 mg tablet 20 mg PO DAILY 08/01/21 01/09/23 haloperidol 5 mg tablet 5 mg PO BID 08/01/21 01/09/23 haloperidol 5 mg tablet 5 mg PO Q4H PRN Agitation 08/01/21 01/09/23 lorazepam 1 mg tablet 1 mg PO QID 08/01/21 01/09/23 metoprolol tartrate 50 mg tablet 50 mg DAILY 08/01/21 01/09/23 nifedipine 30 mg tablet,extended 30 mg PO DAILY 08/01/21 01/09/23 release 24 hr sertraline 50 mg tablet 75 mg PO DAILY 12/28/21 01/09/23 cholecalciferol (vitamin D3) 125 125 mcg PO QNOON 04/01/22 01/09/23 mcg (5,000 unit) capsule furosemide 20 mg tablet 20 mg PO DAILY 04/01/22 01/09/23 deutetrabenazine 6 mg tablet 6 mg PO BID 01/09/23 01/09/23 (Austedo) Allergies Allergy/AdvReac Type Severity Reaction Status Date / Time No Known Allergies Allergy Verified 10/17/22 09:07 Review of Systems Review of Systems: ROS unobtainable: Yes unobtainable due to mental status PMFSH Past Medical History Medical History Anxiety Catatonic schizophrenia DM (diabetes mellitus) H/O: HTN (hypertension) Hyperlipidemia Hypertension Sepsis Shingles UTI (urinary tract infection) Surgical History Surgical History No history of previous surgery Family History Family History Unknown Caregiver unable to obtain copy of document Social History Social History Social History: The patient is single. Nonsmoker. No drug or alcohol. The patient lives in a long term. Mother and father . The patient is nonverbal and was previously listed as a full code. Smoking status: Unknown if ever smoked Alcohol intake: unknown Substance use: unknown Gender identity (if verbalized by the patient): Male Spiritual care concerns: No Exam Narrative: GENERAL: Well-appearing, well-nourished, and in no acute distress. HEAD: Normocephalic, atraumatic. EYES: PERRL and EOMI. ENT: Mucous membranes moist. NECK: Supple. CHEST: Clear to auscultation. No respiratory distress. HEART: Regular rate and rhythm. Normal peripheral pulses. ABDOMEN: Soft, nontender, nondistended. EXTREMITIES: Normal range of motion. No edema. SKIN: Warm, dry, no rash. NEURO: No focal deficits. Alert and oriented x1. Course Course Emergency Course: Patient resting comfortably. No evidence of injury. Discharge back to facility. Vital Signs Vital signs: Vital Signs Temperature 97.0 F L 09/04/23 06:31 Pulse Rate 102 H 09/04/23 06:31 Respiratory Rate 16 09/04/23 06:31 Blood Pressure 126/87 09/04/23 06:31 Pulse Oximetry 98 09/04/23 06:31 Oxygen Delivery Room Air 09/04/23 06:31 Temperature 97.0 F L 09/04/23 06:31 Pulse Rate 102 H 09/04/23 06:31 Respiratory Rate 16 09/04/23 06:31 Blood Pressure 126/87 09/04/23 06:31 Pulse Oximetry 98 09/04/23 06:31 Oxygen Delivery Room
[2023-09-04] MEDS: LORazepam INJ (*CRX) 2 MG/ML VIAL 1 MG IM (07:53)
[2023-09-04 07:54] VITALS: BP 143/87; PULSE 105; RESP 18; O2SAT 98
--- NOTE | 2023-09-04 08:00 | PC.NURSE ---
called report to facility, they asked if pt could be sent to [place]. educated RN on how to have pt taken alternate facilities
== END 2023-09-04 09:36 ==
PROVIDERS: Emergency Provider Emergency Medicine; PCP Internal Medicine
DX: Z04.3 Encounter for examination and observation following other accident (principal); I10 Essential (primary) hypertension; E11.9 Type 2 diabetes mellitus without complications; E78.5 Hyperlipidemia, unspecified; F20.2 Catatonic schizophrenia; Z87.440 Personal history of urinary (tract) infections; Z79.01 Long term (current) use of anticoagulants; W19.XXXA Unspecified fall, initial encounter
CPT/HCPCS: 70450; 72125; 96372; 99284; J2060

== ENCOUNTER 2023-09-04 16:51 | Emergency (ER) | payer OTHER, SELFPAY ==
--- NOTE | ~2023-09-04 | CT_ITS ---
EXAMINATION: CT brain wo con INDICATION: Head injury COMPARISON: 0658 hours TECHNIQUE: Standard unenhanced head CT. The dose-length product (DLP) was 681.00 mGy-cm. The mA was a djusted according to patient size. Iterative reconstruction technique was employed. FINDINGS: No intracranial hemorrhage, acute infarction, or abnormal mass lesion. The ventricles are n ormal. No abnormal mass effect or midline shift. The alfaro-white matter differentiation is normal. The basal cisterns are patent. The orbits are normal. The paranasal sinuses, mastoids and calvarium are normal. IMPRESSION: 1. No acute intracranial abnormality. Reviewed, dictated and finalized at location F.
[2023-09-04 16:54] VITALS: BP 109/73; PULSE 71; RESP 19; TEMP 36.6; O2SAT 98
--- NOTE | 2023-09-04 17:06 | PC.NURSE ---
Sitter at bedside
[2023-09-04 17:56] VITALS: BP 115/85; PULSE 68; RESP 20; O2SAT 98
--- NOTE | 2023-09-04 18:27 | ED.FALL ---
HPI - Fall General Chief Complaint: Fall Stated Complaint: fall Time Seen by Provider: 09/04/23 17:34 History of Present Illness HPI Narrative: 63-year-old male present to the ED for evaluation after having a ground level fall at his care facility. Patient denies any pain or complaints. Related Data Home Medications Medication Instructions Recorded Confirmed apixaban 5 mg tablet (Eliquis) 5 mg PO BID 08/01/21 01/09/23 atorvastatin 40 mg tablet 40 mg PO QHS 08/01/21 01/09/23 benztropine 0.5 mg tablet 0.5 mg PO BID 08/01/21 01/09/23 clonidine 0.2 mg/24 hr weekly 0.2 patch WEEKLY 08/01/21 01/09/23 transdermal patch divalproex 500 mg tablet,delayed 500 mg PO DAILY 08/01/21 01/09/23 release ezetimibe 10 mg tablet 10 mg QNOON 08/01/21 01/09/23 famotidine 20 mg tablet 20 mg PO DAILY 08/01/21 01/09/23 haloperidol 5 mg tablet 5 mg PO BID 08/01/21 01/09/23 haloperidol 5 mg tablet 5 mg PO Q4H PRN Agitation 08/01/21 01/09/23 lorazepam 1 mg tablet 1 mg PO QID 08/01/21 01/09/23 metoprolol tartrate 50 mg tablet 50 mg DAILY 08/01/21 01/09/23 nifedipine 30 mg tablet,extended 30 mg PO DAILY 08/01/21 01/09/23 release 24 hr sertraline 50 mg tablet 75 mg PO DAILY 12/28/21 01/09/23 cholecalciferol (vitamin D3) 125 125 mcg PO QNOON 04/01/22 01/09/23 mcg (5,000 unit) capsule furosemide 20 mg tablet 20 mg PO DAILY 04/01/22 01/09/23 deutetrabenazine 6 mg tablet 6 mg PO BID 01/09/23 01/09/23 (Austedo) Allergies Allergy/AdvReac Type Severity Reaction Status Date / Time No Known Allergies Allergy Verified 09/09/23 09:05 Review of Systems Review of Systems: All systems reviewed & are unremarkable except as noted in HPI and below PMFSH Past Medical History Medical History Anxiety Catatonic schizophrenia DM (diabetes mellitus) H/O: HTN (hypertension) Hyperlipidemia Hypertension Sepsis Shingles UTI (urinary tract infection) Surgical History Surgical History No history of previous surgery Family History Family History Unknown Caregiver unable to obtain copy of document Social History Social History (System 09/09/23 @ 09:05 by Yoni Franz) Social History: The patient is single. Nonsmoker. No drug or alcohol. The patient lives in a fci. Mother and father . The patient is nonverbal and was previously listed as a full code. Smoking status: Unknown if ever smoked Alcohol intake: unknown Substance use: unknown Gender identity (if verbalized by the patient): Male Spiritual care concerns: No Exam Narrative: APPEARANCE: Well appearing, no pain, no distress, well-nourished. HEAD: normocephalic, atraumatic. EYES: PERRLA/EOMI, conjunctivae clear. NOSE: Normal no drainage NECK: Supple. No adenopathy, no masses. RESPIRATORY: Airway patent, respirations nonlabored. Clear to auscultation bilaterally, no rales, rhonchi, wheezing. CARDIOVASCULAR: Regular rate and rhythm without murmurs rubs or gallops. ABDOMINAL: Soft, nontender, nondistended, normal bowel sounds MUSCULOSKELETAL: Moves all extremities. Strength/ROM intact, No edema, No calf tenderness. NEURO: Alert. Cranial nerves II through XII intact. Grossly intact SKIN: Warm, dry. Normal Color Course Vital Signs Vital signs: Vital Signs Temperature 97.9 F 09/04/23 16:54 Pulse Rate 71 09/04/23 16:54 Respiratory Rate 19 09/04/23 16:54 Blood Pressure 109/73 09/04/23 16:54 Pulse Oximetry 98 09/04/23 16:54 Oxygen Delivery Room Air 09/04/23 16:54 Temperature 97.9 F 09/04/23 16:54 Pulse Rate 68 09/04/23 18:36 Respiratory Rate 20 09/04/23 18:36 Blood Pressure 115/85 09/04/23 17:56 Pulse Oximetry 98 09/04/23 18:36 Oxygen Delivery Room Air 03/21/24 16:54 MDM - Fall MDM Narrative Medical decision making narra
[2023-09-04 18:36] VITALS: PULSE 68; RESP 20; O2SAT 98
--- NOTE | 2023-09-04 18:36 | PC.NURSE ---
Report given to Shireen at [facility]
== END 2023-09-04 19:20 ==
PROVIDERS: Emergency Provider Emergency Medicine; PCP Internal Medicine
DX: S09.90XA Unspecified injury of head, initial encounter (principal); I10 Essential (primary) hypertension; E11.9 Type 2 diabetes mellitus without complications; E78.5 Hyperlipidemia, unspecified; F41.9 Anxiety disorder, unspecified; F20.2 Catatonic schizophrenia; Z87.440 Personal history of urinary (tract) infections; Z79.01 Long term (current) use of anticoagulants; W18.30XA Fall on same level, unspecified, initial encounter
CPT/HCPCS: 70450; 99284

== ENCOUNTER 2023-11-18 16:40 | Emergency (ER) | payer OTHER, SELFPAY ==
--- NOTE | ~2023-11-18 | CT_ITS ---
EXAMINATION: CT brain wo con DATE: 11/18/2023 16:54 INDICATION: fall . TECHNIQUE: Computed tomography (CT) of the head was performed without intravenous contrast. The mA wa s adjusted according to patient size. Iterative reconstruction technique was employed. The dose-lengt h product was 681.00 mGy-cm. COMPARISON: 09/04/2023. FINDINGS: No acute intracranial hemorrhage or extra-axial fluid collection. No hydrocephalus, mass, or herniation. No acute ischemic infarct. Unremarkable dural venous sinus attenuation. No acute osseous abnormality. The aerated spaces are clear. Moderate atrophy and chronic white matter change. Atherosclerotic intracranial calcification. Bilater al basal ganglia calcification. IMPRESSION: No acute intracranial process. Reviewed, dictated and finalized at location K.
--- NOTE | ~2023-11-18 | CT_ITS ---
EXAMINATION: CT cervical spine wo con DATE: 11/18/2023 16:55 INDICATION: fall TECHNIQUE: Computed tomography (CT) of the cervical spine was performed without intravenous contrast. Automated exposure control and iterative reconstruction technique were employed. The dose-length pro duct was 521.62 mGy-cm. COMPARISON: 09/04/2023. FINDINGS: Vertebral Body Alignment: Intact. Craniocervical and atlantoaxial alignment: Moderate degenerative change. Alignment intact. Osseous structures/fracture: No evidence of a lytic or blastic process in the visualized spine. No e vidence of acute fracture. Cervical soft tissues: The paraspinal soft tissues planes are maintained. Degenerative changes: Degenerative changes, without severe neural foraminal or central canal narrowin g. IMPRESSION: No acute fracture or traumatic malalignment in the cervical spine. Reviewed, dictated and finalized at location K.
[2023-11-18 16:42] VITALS: PULSE 83; RESP 18; TEMP 37; O2SAT 94
[2023-11-18 16:45] VITALS: BP 105/66; PULSE 78; RESP 20; O2SAT 97
--- NOTE | 2023-11-18 17:08 | ED.FALL ---
HPI - Fall General Chief Complaint: Fall Stated Complaint: glf Time Seen by Provider: 11/18/23 17:01 Source: patient Mode of arrival: EMS Limitations: no limitations and clinical condition History of Present Illness HPI Narrative: Patient is a 63 y/o male, with pmh of catatonic Schizophrenia, who presents the ED with report of a fall. Patient is a resident of [facility]. Per alf report, patient had a ground level fall today. He did hit his head. He is on Eliquis. Sent here for further evaluation. Patient denied LOC. Patient denies any acute concerns. Denies any areas of pain. Denies dizziness, headache, vision change, neck or back pain. Related Data Home Medications Medication Instructions Recorded Confirmed apixaban 5 mg tablet (Eliquis) 5 mg PO BID 08/01/21 01/09/23 atorvastatin 40 mg tablet 40 mg PO QHS 08/01/21 01/09/23 benztropine 0.5 mg tablet 0.5 mg PO BID 08/01/21 01/09/23 clonidine 0.2 mg/24 hr weekly 0.2 patch WEEKLY 08/01/21 01/09/23 transdermal patch divalproex 500 mg tablet,delayed 500 mg PO DAILY 08/01/21 01/09/23 release ezetimibe 10 mg tablet 10 mg QNOON 08/01/21 01/09/23 famotidine 20 mg tablet 20 mg PO DAILY 08/01/21 01/09/23 haloperidol 5 mg tablet 5 mg PO BID 08/01/21 01/09/23 haloperidol 5 mg tablet 5 mg PO Q4H PRN Agitation 08/01/21 01/09/23 lorazepam 1 mg tablet 1 mg PO QID 08/01/21 01/09/23 metoprolol tartrate 50 mg tablet 50 mg DAILY 08/01/21 01/09/23 nifedipine 30 mg tablet,extended 30 mg PO DAILY 08/01/21 01/09/23 release 24 hr sertraline 50 mg tablet 75 mg PO DAILY 12/28/21 01/09/23 cholecalciferol (vitamin D3) 125 125 mcg PO QNOON 04/01/22 01/09/23 mcg (5,000 unit) capsule furosemide 20 mg tablet 20 mg PO DAILY 04/01/22 01/09/23 deutetrabenazine 6 mg tablet 6 mg PO BID 01/09/23 01/09/23 (Austedo) Allergies Allergy/AdvReac Type Severity Reaction Status Date / Time No Known Allergies Allergy Verified 09/09/23 09:05 Review of Systems Review of Systems: CONSTITUTIONAL: Denies fever, chills, or sweats. MUSCULOSKELETAL: Denies back pain, extremity pain, myalgia. NEUROLOGIC: see HPI. All systems reviewed & are unremarkable except as noted in HPI and below PMFSH Past Medical History Medical History Anxiety Catatonic schizophrenia DM (diabetes mellitus) H/O: HTN (hypertension) Hyperlipidemia Hypertension Sepsis Shingles UTI (urinary tract infection) Surgical History Surgical History No history of previous surgery Family History Family History Unknown Caregiver unable to obtain copy of document Social History Social History Social History: The patient is single. Nonsmoker. No drug or alcohol. The patient lives in a alf. Mother and father . The patient is nonverbal and was previously listed as a full code. Smoking status: Unknown if ever smoked Alcohol intake: unknown Substance use: unknown Gender identity (if verbalized by the patient): Male Spiritual care concerns: No Exam Narrative: GENERAL: Well appearing, well-nourished, non-toxic, in no acute distress. HEAD: Normocephalic, atraumatic. RESPIRATORY: Airway patent, respirations nonlabored. Clear to auscultation bilaterally, no rales, rhonchi, wheezing. CARDIOVASCULAR: Regular rate and rhythm, +murmur. MUSCULOSKELETAL: Moves all extremities. No gross deformities. SKIN: Warm, dry, normal color. NEURO: Alert, shakes head yes/no to questions. Follows commands. Did not speak. No ataxic movements. Moves all extremities. No focal deficits. PSYCHIATRIC: Nonverbal. Normal interaction. Course Vital Signs Vital signs: Vital Signs Temperature 98.6 F 11/18/23 16:42 Pulse Rate 83 11/18/23 16:4
[2023-11-18 18:43] VITALS: BP 133/68; PULSE 79; RESP 21; O2SAT 100
[2023-11-18 18:46] VITALS: BP 148/85; PULSE 73; RESP 21; O2SAT 100
[2023-11-18 19:01] VITALS: BP 118/95; PULSE 80; RESP 19; O2SAT 92
[2023-11-18 19:16] VITALS: BP 116/82; BP 134/76; PULSE 87; RESP 16; O2SAT 99
== END 2023-11-18 19:17 ==
PROVIDERS: Emergency Provider Physician Assistant
DX: S09.90XA Unspecified injury of head, initial encounter (principal); I10 Essential (primary) hypertension; E11.9 Type 2 diabetes mellitus without complications; E78.5 Hyperlipidemia, unspecified; F20.2 Catatonic schizophrenia; F41.9 Anxiety disorder, unspecified; Z87.440 Personal history of urinary (tract) infections; Z79.899 Other long term (current) drug therapy; Z79.01 Long term (current) use of anticoagulants; W18.30XA Fall on same level, unspecified, initial encounter
CPT/HCPCS: 70450; 72125; 99284

== ENCOUNTER 2024-05-05 17:59 | Emergency (ER) | payer OTHER, SELFPAY ==
--- NOTE | ~2024-05-05 | CT_ITS ---
EXAMINATION: CT brain wo con DATE: 05/05/2024 20:08 INDICATION: Altered mental status. TECHNIQUE: Computed tomography (CT) of the head was performed without intravenous contrast. The mA wa s adjusted according to patient size. Iterative reconstruction technique was employed. The dose-lengt h product was 681.00 mGy-cm. COMPARISON: Head CT 11/18/2023 FINDINGS: There are scattered areas of low attenuation in the cerebral white matter, which is within normal limits for the patient's age. There is no intracranial hemorrhage, acute infarction, or abnorm al intracranial mass lesion. The ventricles are normal in size. The paranasal sinuses are clear. The mastoid air cells are normal. IMPRESSION: 1. Normal aging brain. Reviewed, dictated and finalized at location A. ATIONS VOCATIONAL INSTRUCTOR IMPRESSION: 1. Normal aging brain.
--- NOTE | ~2024-05-05 | XR_ITS ---
EXAMINATION: XR chest 1V portable DATE: 05/05/2024 18:48 INDICATION: Altered mental status. TECHNIQUE: A single frontal view of the chest was obtained. COMPARISON: Chest 2 view 09/03/2023 FINDINGS: There is mild atelectasis at the lung bases. No pleural effusion or pneumothorax. The heart size is normal. IMPRESSION: 1. Mild atelectasis at the lung bases. Reviewed, dictated and finalized at location A. STRIPPER FINAL
[2024-05-05 18:11] VITALS: BP 123/91; PULSE 102; RESP 20; TEMP 36.2; O2SAT 97
--- NOTE | 2024-05-05 18:13 | ECG_ITS ---
Test Date: 2024-05-05 19:50:59 Measurements Intervals [place] Rate: 99 P: 63 KS: 153 QRS: 9 QRSD: 91 T: 215 QT: 299 QTc: 385 Interpretive Statements SINUS RHYTHM POSSIBLE LEFT ATRIAL ENLARGEMENT ST-T WAVE ABNORMALITY IN LATERAL LEADS- CONSIDER ISCHEMIA BASELINE ARTIFACT- I, II, III, AVR, AVL, AVF, V1-V6 ABNORMAL ECG No previous ECG available for comparison Electronically Signed On 05-05-2024 20:24:49 CLINICAL RN by Memo Iverson D.O.
--- NOTE | 2024-05-05 18:14 | ED_ITS ---
HPI - General Adult General Chief complaint: Neuro Symptoms/Deficit Stated complaint: neuro Time Seen by Provider: 05/05/24 18:08 History of Present Illness HPI narrative: 64-year-old male with history of schizophrenic catatonia present to the emergency department for evaluation for facial droop. [facility] reportedly noticed the facial droop at approximately 2:00 p.m. in the colder nurse practitioner. At 6:00 p.m. nurse practitioner recommended that the patient be transferred to the emergency department for further workup. Patient is nonverbal at baseline. Upon arrival emergency department patient is moving all limbs equally and has no facial droop. Related Data Home Medications Medication Instructions Recorded Confirmed apixaban 5 mg tablet (Eliquis) 5 mg PO BID 08/01/21 01/09/23 atorvastatin 40 mg tablet 40 mg PO QHS 08/01/21 01/09/23 benztropine 0.5 mg tablet 0.5 mg PO BID 08/01/21 01/09/23 clonidine 0.2 mg/24 hr weekly 0.2 patch WEEKLY 08/01/21 01/09/23 transdermal patch divalproex 500 mg tablet,delayed 500 mg PO DAILY 08/01/21 01/09/23 release ezetimibe 10 mg tablet 10 mg QNOON 08/01/21 01/09/23 famotidine 20 mg tablet 20 mg PO DAILY 08/01/21 01/09/23 haloperidol 5 mg tablet 5 mg PO BID 08/01/21 01/09/23 haloperidol 5 mg tablet 5 mg PO Q4H PRN Agitation 08/01/21 01/09/23 lorazepam 1 mg tablet 1 mg PO QID 08/01/21 01/09/23 metoprolol tartrate 50 mg tablet 50 mg DAILY 08/01/21 01/09/23 nifedipine 30 mg tablet,extended 30 mg PO DAILY 08/01/21 01/09/23 release 24 hr sertraline 50 mg tablet 75 mg PO DAILY 12/28/21 01/09/23 cholecalciferol (vitamin D3) 125 125 mcg PO QNOON 04/01/22 01/09/23 mcg (5,000 unit) capsule furosemide 20 mg tablet 20 mg PO DAILY 04/01/22 01/09/23 deutetrabenazine 6 mg tablet 6 mg PO BID 01/09/23 01/09/23 (Austedo) Allergies Allergy/AdvReac Type Severity Reaction Status Date / Time No Known Allergies Allergy Verified 09/09/23 09:05 Review of Systems Review of Systems: All systems reviewed & are unremarkable except as noted in HPI and below PMFSH Past Medical History Medical History Anxiety Catatonic schizophrenia DM (diabetes mellitus) H/O: HTN (hypertension) Hyperlipidemia Hypertension Sepsis Shingles UTI (urinary tract infection) Surgical History Surgical History No history of previous surgery Family History Family History Unknown Caregiver unable to obtain copy of document Social History Social History Social History: The patient is single. Nonsmoker. No drug or alcohol. The patient lives in a prison. Mother and father . The patient is nonverbal and was previously listed as a full code. Smoking status: Unknown if ever smoked Alcohol intake: unknown Substance use: unknown Gender identity (if verbalized by the patient): Male Spiritual care concerns: No Exam Narrative: APPEARANCE: Well appearing, no pain, no distress, well-nourished. HEAD: normocephalic, atraumatic. EYES: PERRLA/EOMI, conjunctivae clear. NOSE: Normal no drainage EARS:TMS clear with good light reflex. THROAT: Pharynx clear, no exudate. NECK: Supple. No adenopathy, no masses. RESPIRATORY: Airway patent, respirations nonlabored. Clear to auscultation bilaterally, no rales, rhonchi, wheezing. CARDIOVASCULAR: Regular rate and rhythm without murmurs rubs or gallops. ABDOMINAL: Soft, nontender, nondistended, normal bowel sounds MUSCULOSKELETAL: Moves all extremities. Strength/ROM intact, No edema, No calf tenderness. NEURO: Alert. But nonverbal no focal neural deficit SKIN: Warm, dry. Normal Color Course Vital Signs Vital signs: Vital Signs Temperature 97.2 F L 05/05/24 18:11 Pulse Rate 102 H 05/05/24 18:11 Respiratory Rate 20 05/05/24 18:11 Blood Pressure 123/91 H 05/05/24 18:11 Pulse Oximetry 97 05/05/24 18:11 Oxygen Delivery Room Air 05/05/24 18:11 Temperature 97.7 F 05/05/24 21:19 Pulse Rate 100 05/05/24 21:19 Respiratory Rate 18 05/05/24 21:19 Blood Pressure 127/86 05/05/24 21:19 Pulse Oximetry 99 05/05/24 21:19 Oxygen Delivery Room Air 05/05/24 18:11 Medical Decision Making MDM Narrative Medical decision making narrative: 64-year-old male presenting to the emergency department for evaluation for catatonic schizophrenia versus is stroke. Patient was responsive upon arrival emergency department and denies any pain or complaint. Patient had no focal deficit. After approximately 30 minutes emergency department patient got out of bed on his own and was walking around the emergency department. Patient then asked for a glass of water. This is the patient's baseline. Patient is afebrile with no leukocytosis and hemoglobin of 14.8. Patient has no acute abnormalities on his CMP. Patient once again states he is in no distress. Patient will be discharged back to his care facility. Differential Diagnosis Differential Diagnosis: CVA, TIA, catatonic schizophrenia Vital Signs Vital Signs: Vital Signs Temperature 97.2 F L 05/05/24 18:11 Pulse Rate 102 H 05/05/24 18:11 Respiratory Rate 20 05/05/24 18:11 Blood Pressure 123/91 H 05/05/24 18:11 Pulse Oximetry 97 05/05/24 18:11 Oxygen Delivery Room Air 05/05/24 18:11 Temperature 97.7 F 05/05/24 21:19 Pulse Rate 100 05/05/24 21:19 Respiratory Rate 18 05/05/24 21:19 Blood Pressure 127/86 05/05/24 21:19 Pulse Oximetry 99 05/05/24 21:19 Oxygen Delivery Room Air 05/05/24 18:11 Lab Data Lab results reviewed: Yes I reviewed the patient's lab results. 05/05/24 18:58 05/05/24 18:58 Labs: Lab Results 05/05/24 05/05/24 Range/Units 18:58 19:57 WBC 9.3 (4.5-10.0) K/mm3 RBC 5.27 (4.6-6.20) M/mm3 Hgb 14.8 (14.0-18.0) g/dL Hct 45.6 (42.0-52.0) % MCV 86.5 (80-100) fl MCH 28.1 (26-34) pg MCHC 32.5 (32-36) g/dl RDW 14.4 (11.5-14.5) % Plt Count 278 (150-375) k/mm3 MPV 10.8 H (7.4-10.4) fl Immature Gran % (Auto) 0.6 H (0-0.5) % Neut % (Auto) 51.4 (45.5-73.1) % Lymph % (Auto) 27.1 (18.3-44.2) % [place] % (Auto) 17.3 H (2.6-8.5) % Eos % (Auto) 3.2 (0-4.4) % Baso % (Auto) 0.4 (0.2-1.2) % Lymph # (Auto) 2.51 (0.9-3.2) K/mm3 [place] # (Auto) 1.6 H (0.1-0.6) K/mm3 Eos # (Auto) 0.3 (0-0.3) K/mm3 Baso # (Auto) 0.0 (0.0-0.1) K/mm3 Abs Immat Gran (auto) 0.06 H (0.00-0.031) K/mm3 Absolute Neuts (auto) 4.8 (1.3-6.7) K/mm3 Absolute Nucleated RBC 0.000 (0.0-0.012) K/mm3 Nucleated RBC % 0.0 (0.0-0.2) % PT 16.8 H (11.1-14.7) Seconds INR 1.3 APTT 33.2 (22.3-36.8) Seconds Sodium 142 (137-145) mmol/L Potassium 3.0 L (3.4-5.0) mmol/L Chloride 103 (98-107) mmol/L Carbon Dioxide 32 H (22-30) mmol/L Anion Gap 7 (4-12) mmol/L BUN 25 H (9-20) mg/dL Creatinine 0.90 (0.7-1.3) mg/dL Estim Creat Clear Calc 71 ml/min Estimated GFR > 60 (59 - ) Glucose 92 (65-110) mg/dL Calcium 9.5 (8.4-10.2) mg/dL Total Bilirubin 0.8 (0.2-1.3) mg/dL AST 78 H (17-59) U/L ALT 74 H (6-50) U/L Alkaline Phosphatase 92 (38-126) U/L Total Protein 8.0 (6.3-8.2) g/dL Albumin 3.8 (3.5-5.1) g/dL Influenza A (RT-PCR) Negative (Negative) Influenza B (RT-PCR) Negative (Negative) RSV (RT-PCR) Negative (Negative) SARS-CoV-2 RNA (RT-PCR) Negative (Negative) Imaging Data Radiologist's impression: Impressions Chest X-Ray 05/05/24 18:54 IMPRESSION: 1. Mild atelectasis at the lung bases. Head CT 05/05/24 20:09 IMPRESSION: 1. Normal aging brain. Discharge Plan Discharge Clinical Impression: Catatonic schizophrenia [facility] Condition: Stable Instructions: Antibiotic Form Additional Instructions: Have close follow-up with your primary care physician Prescriptions: No Action atorvastatin 40 mg tablet 40 mg PO QHS Rx Instructions: at bedtime benztropine 0.5 mg tablet 0.5 mg PO BID clonidine 0.2 mg/24 hr patch weekly 0.2 patch WEEKLY Rx Instructions: change on friday divalproex 500 mg tablet,delayed release (DR/EC) 500 mg PO DAILY ezetimibe 10 mg tablet 10 mg QNOON famotidine 20 mg tablet 20 mg PO DAILY metoprolol tartrate 50 mg tablet 50 mg DAILY nifedipine 30 mg tablet extended release 24 hr 30 mg PO DAILY Eliquis 5 mg tablet 5 mg PO BID haloperidol 5 mg tablet 5 mg PO BID lorazepam 1 mg tablet 1 mg PO QID haloperidol 5 mg tablet 5 mg PO Q4H PRN (Reason: Agitation) sertraline 50 mg Tablet 75 mg PO DAILY [place] 6 mg Tablet 6 mg PO BID furosemide 20 mg Tablet 20 mg PO DAILY cholecalciferol (vitamin D3) 125 mcg (5,000 unit) Capsule 125 mcg PO QNOON Follow-up/Referrals: UNKNOWN,DOCTOR [Primary Care Provider] -
[2024-05-05 19:12] LABS: Basophils Percent Auto 0.4 % (0.2-1.2); Eosinophils Absolute Auto 0.3 K/mm3 (0-0.3); Eosinophils Percent Auto 3.2 % (0-4.4); Hematocrit 45.6 % (42.0-52.0); Hemoglobin 14.8 g/dL (14.0-18.0); Immature Granulocyte Absolute 0.06 K/mm3 (0.00-0.031); Immature Granulocyte Percent A 0.6 % (0-0.5); Lymphocytes Absolute Auto 2.51 K/mm3 (0.9-3.2); Lymphocytes Percent Auto 27.1 % (18.3-44.2); Mean Corpuscular HGB Conc 32.5 g/dl (32-36); Mean Corpuscular Hemoglobin 28.1 pg (26-34); Mean Corpuscular Volume 86.5 fl (80-100); Mean Platelet Volume 10.8 fl (7.4-10.4); Monocytes Absolute Auto 1.6 K/mm3 (0.1-0.6); Monocytes Percent Auto 17.3 % (2.6-8.5); Neutrophils Absolute Auto 4.8 K/mm3 (1.3-6.7); Neutrophils Percent Auto 51.4 % (45.5-73.1); Platelet Count Result 278 k/mm3 (150-375); Red Blood Count 5.27 M/mm3 (4.6-6.20); Red Cell Distribution Width 14.4 % (11.5-14.5); White Blood Count 9.3 K/mm3 (4.5-10.0)
[2024-05-05 19:25] LABS: Alanine Aminotransferase 74 U/L (6-50); Albumin Level 3.8 g/dL (3.5-5.1); Alkaline Phosphatase 92 U/L (38-126); Anion Gap 7 mmol/L (4-12); Aspartate Amino Transferase 78 U/L (17-59); Bilirubin,Total 0.8 mg/dL (0.2-1.3); Blood Urea Nitrogen 25 mg/dL (9-20); Calcium 9.5 mg/dL (8.4-10.2); Carbon Dioxide 32 mmol/L (22-30); Chloride 103 mmol/L (98-107); Estimated CRCL calculation 71 ml/min; Estimated Glomerular Filt Rate > 60; Glucose 92 mg/dL (65-110); Sodium 142 mmol/L (137-145)
[2024-05-05 19:30] LABS: INR 1.3; Prothrombin Time 16.8 Seconds (11.1-14.7)
[2024-05-05 19:33] LABS: Partial Thromboplastin Time 33.2 Seconds (22.3-36.8)
[2024-05-05 20:46] LABS: Influenza A QL RT-PCR Negative (Negative); Influenza B QL RT-PCR Negative (Negative); RSV RNA, RT-PCR Negative (Negative); SARS-CoV-2 RNA PCR Negative (Negative)
--- NOTE | 2024-05-05 21:12 | PC.NURSE ---
This RN called [facility] to update facility on pt transport back. This RN called twice with no answer.
[2024-05-05 21:16] VITALS: BP 127/86; PULSE 100; RESP 18; O2SAT 99
[2024-05-05 21:19] VITALS: BP 127/86; PULSE 100; RESP 18; TEMP 36.5; O2SAT 99
--- NOTE | 2024-05-05 21:30 | PC.NURSE ---
pt unable to comprehend to answer stroke questions
== END 2024-05-05 21:31 ==
PROVIDERS: Emergency Provider Emergency Medicine
DX: F20.2 Catatonic schizophrenia (principal); Z20.822 Contact with and (suspected) exposure to COVID-19
CPT/HCPCS: 36415; 70450; 71045; 80053; 85025; 85610; 85730; 87637; 93005; 99284

== ENCOUNTER 2024-05-15 19:09 | Emergency (ER) | payer OTHER, SELFPAY ==
[2024-05-15] VITALS (29 sets, daily range): BP systolic 98–129; BP diastolic 60–97; PULSE 65–75; RESP 10–22; TEMP 36.6; O2SAT 77–100
--- NOTE | ~2024-05-15 | CT_ITS ---
EXAMINATION: CT brain wo con DATE: 05/15/2024 20:03 INDICATION: falls . TECHNIQUE: Computed tomography (CT) of the head was performed without intravenous contrast. The mA wa s adjusted according to patient size. Iterative reconstruction technique was employed. The dose-lengt h product was 756.67 mGy-cm. COMPARISON: 05/05/2024. FINDINGS: No acute intracranial hemorrhage or extra-axial fluid collection. No hydrocephalus, mass, or herniation. No acute ischemic infarct. Unremarkable dural venous sinus attenuation. No acute osseous abnormality. Mild ethmoid and maxillary mucosal thickening, the remaining aerated spaces are clear. Moderate atrophy and chronic white matter change. Atherosclerotic intracranial calcification. Bilater al basal ganglia calcifications. IMPRESSION: No acute intracranial process. Reviewed, dictated and finalized at location K. E COMMERCE DEVELOPER
--- NOTE | 2024-05-15 19:44 | ED.FALL ---
HPI - Fall General Chief Complaint: Fall Stated Complaint: fall Time Seen by Provider: 05/15/24 19:27 History of Present Illness HPI Narrative: 64-year-old male with a past medical history significant for schizophrenia with occasional episodes of catatonia, hypertension, hyperlipidemia. Patient presents from his [facility] facility for concerns of frequent falls. Patient has been seen and evaluated recently in this emergency department for transient altered mental status that was attributed to his schizophrenia. Facility was concerned that he was having a brain bleed. Patient himself has no acute complaints whatsoever at this time is awake alert oriented. He answers all my questions and is following all my commands. No focal appreciable deficits on examination. He tells me that he tripped over a chair and fell onto the ground. On review of the EMR there is a documentation of Eliquis use but unclear for the indication. Patient has no visible injuries or trauma to the head or neck. Is acting appropriately. Related Data Home Medications Medication Instructions Recorded Confirmed apixaban 5 mg tablet (Eliquis) 5 mg PO BID 08/01/21 01/09/23 atorvastatin 40 mg tablet 40 mg PO QHS 08/01/21 01/09/23 benztropine 0.5 mg tablet 0.5 mg PO BID 08/01/21 01/09/23 clonidine 0.2 mg/24 hr weekly 0.2 patch WEEKLY 08/01/21 01/09/23 transdermal patch divalproex 500 mg tablet,delayed 500 mg PO DAILY 08/01/21 01/09/23 release ezetimibe 10 mg tablet 10 mg QNOON 08/01/21 01/09/23 famotidine 20 mg tablet 20 mg PO DAILY 08/01/21 01/09/23 haloperidol 5 mg tablet 5 mg PO BID 08/01/21 01/09/23 haloperidol 5 mg tablet 5 mg PO Q4H PRN Agitation 08/01/21 01/09/23 lorazepam 1 mg tablet 1 mg PO QID 08/01/21 01/09/23 metoprolol tartrate 50 mg tablet 50 mg DAILY 08/01/21 01/09/23 nifedipine 30 mg tablet,extended 30 mg PO DAILY 08/01/21 01/09/23 release 24 hr sertraline 50 mg tablet 75 mg PO DAILY 12/28/21 01/09/23 cholecalciferol (vitamin D3) 125 125 mcg PO QNOON 04/01/22 01/09/23 mcg (5,000 unit) capsule furosemide 20 mg tablet 20 mg PO DAILY 04/01/22 01/09/23 deutetrabenazine 6 mg tablet 6 mg PO BID 01/09/23 01/09/23 (Austedo) Allergies Allergy/AdvReac Type Severity Reaction Status Date / Time No Known Allergies Allergy Verified 09/09/23 09:05 Review of Systems Review of Systems: As reviewed above in [facility] Past Medical History Medical History Anxiety Catatonic schizophrenia DM (diabetes mellitus) H/O: HTN (hypertension) Hyperlipidemia Hypertension Sepsis Shingles UTI (urinary tract infection) Surgical History Surgical History No history of previous surgery Family History Family History Unknown Caregiver unable to obtain copy of document Social History Social History Social History: The patient is single. Nonsmoker. No drug or alcohol. The patient lives in a retirement. Mother and father . The patient is nonverbal and was previously listed as a full code. Smoking status: Unknown if ever smoked Alcohol intake: unknown Substance use: unknown Gender identity (if verbalized by the patient): Male Spiritual care concerns: No Exam Narrative: GENERAL: [Well-appearing, well-nourished, and in no acute distress.] HEAD: [Normocephalic, atraumatic.] EYES: [PERRLA and EOMI.] ENT: Nares clear, no rhinorrhea or epistaxis. Mucous membranes moist. NECK: Supple. CHEST: [Clear to auscultation. No respiratory distress.] HEART: [Regular rate and rhythm]. No murmur heard. [Normal peripheral pulses.] ABDOMEN: [Soft, nondistended], [nontender], [No rigidity or guarding] EXTREMITIES: Normal range of motion. [No edema.] SKIN: Warm, dry, no rash. NEURO: [No focal deficits]. Alert and oriented [x3.] Symmetric strength and sensation in both arms and legs. No ataxia. No facial droop, no facial asymmetry. Extraocular movements are intact. Follows commands and answers questions appropriately PSYCH: [Normal mood and affect.] Course Vital Signs Vital signs: Vital Signs Temperature 36.6 C 05/15/24 19:10 Pulse Rate 72 05/15/24 19:10 Respiratory Rate 16 05/15/24 19:10 Blood Pressure 98/60 L 05/15/24 19:10 Pulse Oximetry 99 05/15/24 19:10 Oxygen Delivery Room Air 05/15/24 19:10 Temperature 36.6 C 05/15/24 19:10 Pulse Rate 69 05/15/24 19:30 Respiratory Rate 22 H 05/15/24 19:30 Blood Pressure 102/68 05/15/24 19:30 Pulse Oximetry 96 05/15/24 19:30 Oxygen Delivery Room Air 05/15/24 19:10 MDM - Fall MDM Narrative Medical decision making narrative: 64-year-old male with a past medical history significant for catatonic schizophrenia, hypertension, hyperlipidemia. On Eliquis for unclear reasons. Patient presents to the emergency department today for evaluation of a fall with potential concern for closed head injury. Patient is awake alert oriented acting appropriately. He is as baseline mentation presently. EMS was called because the facility that patient resides at was concerned that he has been having frequent falls over last few days and could be having a brain bleed given the fall today. Patient does state he takes Eliquis but denies hitting his head today on the fall. He states he tripped mechanically over a chair that was in his weight while walking. He has no focal findings on examination at baseline. He has full strength and sensation in both arms and legs. No ataxia, sensory deficits, facial asymmetry droop. Awake and answers all my questions appropriately. Vital signs showed initially a blood pressure 98/60 which improved to 102/60 without any intervention. No tachycardia, hypoxia, fever or any other vital anomaly. Given patient's potential closed head injury today and that he is on Eliquis we did order a CT head without contrast to assess for any intracranial pathology such as a bleed. Overall patient appears well and barring any significant findings can likely safely be discharged back to his care facility. Patient CT scan was independently reviewed by myself and also by Radiology. I do not appreciate any obvious intraparenchymal process, no obvious hyperdensities like a epidural or subdural hematoma. No obvious subarachnoid hemorrhage. Radiology confirms no acute intracranial process. Given the negative scan, patient's lack of symptoms, baseline functionality with no present concerns on his exam I believe he is safe and stable for discharge back to his facility and patient is agreeable with this plan of care. Medical Records Attestation: I reviewed the patient's medical records. Imaging Data Attestation: I personally reviewed and interpreted this imaging study as follows: Radiologist's impression: Impressions Head CT 05/15/24 20:13 IMPRESSION: No acute intracranial process. Discharge Plan Discharge Clinical Impression: CHI (closed head injury), Catatonic schizophrenia Patient Disposition: NH Shelter/Asst Living Condition: Stable Instructions: Antibiotic Form, Head Injury (ED) Additional Instructions: Your scan today was reassuring, no injuries or intracranial findings. Follow-up with your regular doctor on outpatient basis. You can return to the ER any time with any new or worsening concerns. Prescriptions: No Action atorvastatin 40 mg tablet 40 mg PO QHS Rx Instructions: at bedtime benztropine 0.5 mg tablet 0.5 mg PO BID clonidine 0.2 mg/24 hr patch weekly 0.2 patch WEEKLY Rx Instructions: change on friday divalproex 500 mg tablet,delayed release (DR/EC) 500 mg PO DAILY ezetimibe 10 mg tablet 10 mg QNOON famotidine 20 mg tablet 20 mg PO DAILY metoprolol tartrate 50 mg tablet 50 mg DAILY nifedipine 30 mg tablet extended release 24 hr 30 mg PO DAILY Eliquis 5 mg tablet 5 mg PO BID haloperidol 5 mg tablet 5 mg PO BID lorazepam 1 mg tablet 1 mg PO QID haloperidol 5 mg tablet 5 mg PO Q4H PRN (Reason: Agitation) sertraline 50 mg Tablet 75 mg PO DAILY Austedo 6 mg Tablet 6 mg PO BID furosemide 20 mg Tablet 20 mg PO DAILY cholecalciferol (vitamin D3) 125 mcg (5,000 unit) Capsule 125 mcg PO QNOON Follow-up/Referrals: UNKNOWN,DOCTOR [Primary Care Provider] - Stand Alone Forms: Half-Way Discharge Time of Disposition: 20:41
[2024-05-16] VITALS (26 sets, daily range): BP systolic 103–140; BP diastolic 61–87; PULSE 53–80; RESP 11–19; O2SAT 97–100
--- NOTE | 2024-05-16 08:23 | PC.NURSE ---
breakfast ordered at this time
== END 2024-05-16 11:39 ==
PROVIDERS: Emergency Provider Student in an Organized Health Care Education/Training Program
DX: S09.90XA Unspecified injury of head, initial encounter (principal); F20.2 Catatonic schizophrenia; R29.6 Repeated falls; I10 Essential (primary) hypertension; E78.5 Hyperlipidemia, unspecified; E11.9 Type 2 diabetes mellitus without complications; F41.9 Anxiety disorder, unspecified; Z87.440 Personal history of urinary (tract) infections; Z79.899 Other long term (current) drug therapy; Z79.01 Long term (current) use of anticoagulants; W18.09XA Striking against other object with subsequent fall, initial encounter
CPT/HCPCS: 70450; 99284

== ENCOUNTER 2024-07-06 18:03 | Emergency (ER) | payer OTHER, SELFPAY ==
--- NOTE | ~2024-07-06 | CT_ITS ---
History: Ground-level fall PROCEDURE: CT head without contrast. COMPARISON: 05/15/2024 TECHNIQUE: Axial imaging of the head performed from the skull base to the vertex without IV contrast. Sagittal a nd coronal reformations obtained. DLP: 681 mGy-cm FINDINGS: The ventricles are normal in size, shape and position. There is no mass, mass effect or midline shift. Basal ganglia calcifications are identified. There is no abnormal extra-axial fluid collection or intracranial hemorrhage. Visualized paranasal sinuses are clear. The mastoid air cells are well aerated. No acute displaced fractures within the overlying cranium. Impression: No acute intracranial hemorrhage or suspicious mass effect. Reviewed, dictated and finalized at location A. GENCY NURSE Impression: No acute intracranial hemorrhage or suspicious mass effect.
--- NOTE | ~2024-07-06 | CT_ITS ---
History: Fall PROCEDURE: CT cervical spine without intravenous contrast. COMPARISON: 11/18/2023 TECHNIQUE: Multiple contiguous axial images of the cervical spine were performed without the administration of i ntravenous contrast. DLP: 374 mGy-cm FINDINGS: Preservation of the normal curvature of the cervical spine is identified. Severe degenerative disease is present. No acute fractures are visualized. The bilateral lung apices are unremarkable. No soft tissue abnormality is present. Asymmetry within the posterior pharynx, to the left of midline which direct visualization is recommen ded. The remainder of the airway is otherwise unremarkable. Impression: Severe degenerative disease, without acute fracture. Asymmetry within the posterior pharynx to the left of midline for which direct visualization is recom mended. Reviewed, dictated and finalized at location A. ATRIC SURGEON Impression: Severe degenerative disease, without acute fracture. Asymmetry within the posterior pharynx to the left of midline for which direct visualization is recommended.
[2024-07-06 18:07] VITALS: BP 100/70; PULSE 68; RESP 18; O2SAT 98
--- NOTE | 2024-07-06 18:09 | ED.GENADULT ---
HPI - General Adult General Chief complaint: Fall Stated complaint: fall Time Seen by Provider: 07/06/24 18:04 History of Present Illness HPI narrative: Patient is a 61-year-old gentleman who presents emergency department with chief complaint of fall. Patient is resident of a local nursing facility and fell out of a chair the patient has no complaints the patient is on a anticoagulant Related Data Home Medications ?Medication ?Instructions ?Recorded ?Confirmed ?Last Taken ?Type apixaban 5 mg tablet (Eliquis) 5 mg PO BID 08/01/21 01/09/23 Unknown History atorvastatin 40 mg tablet 40 mg PO QHS 08/01/21 01/09/23 Unknown History benztropine 0.5 mg tablet 0.5 mg PO BID 08/01/21 01/09/23 Unknown History clonidine 0.2 mg/24 hr weekly 0.2 patch WEEKLY 08/01/21 01/09/23 01/05/23 History transdermal patch divalproex 500 mg tablet,delayed 500 mg PO DAILY 08/01/21 01/09/23 Unknown History release ezetimibe 10 mg tablet 10 mg QNOON 08/01/21 01/09/23 Unknown History famotidine 20 mg tablet 20 mg PO DAILY 08/01/21 01/09/23 Unknown History haloperidol 5 mg tablet 5 mg PO BID 08/01/21 01/09/23 Unknown History haloperidol 5 mg tablet 5 mg PO Q4H PRN Agitation 08/01/21 01/09/23 Unknown History lorazepam 1 mg tablet 1 mg PO QID 08/01/21 01/09/23 Unknown History metoprolol tartrate 50 mg tablet 50 mg DAILY 08/01/21 01/09/23 Unknown History nifedipine 30 mg tablet,extended 30 mg PO DAILY 08/01/21 01/09/23 Unknown History release 24 hr sertraline 50 mg tablet 75 mg PO DAILY 12/28/21 01/09/23 Unknown History cholecalciferol (vitamin D3) 125 125 mcg PO QNOON 04/01/22 01/09/23 Unknown History mcg (5,000 unit) capsule furosemide 20 mg tablet 20 mg PO DAILY 04/01/22 01/09/23 Unknown History deutetrabenazine 6 mg tablet 6 mg PO BID 01/09/23 01/09/23 Unknown History (Austedo) Allergies Allergy/AdvReac Type Severity Reaction Status Date / Time No Known Allergies Allergy Verified 09/09/23 09:05 Review of Systems Review of Systems: A 10 system review of systems was completed on the patient and is negative except for what is stated in the HPI. Nursing and ancillary documentation was reviewed. [facility] Past Medical History Medical History Anxiety Hypertension Hyperlipidemia Sepsis Shingles DM (diabetes mellitus) H/O: HTN (hypertension) Catatonic schizophrenia UTI (urinary tract infection) Surgical History Surgical History No history of previous surgery Family History Family History Unknown Caregiver unable to obtain copy of document Social History Social History Social History: The patient is single. Nonsmoker. No drug or alcohol. The patient lives in a half-way. Mother and father . The patient is nonverbal and was previously listed as a full code. Smoking status: Unknown if ever smoked Alcohol intake: unknown Substance use: unknown Gender identity (if verbalized by the patient): Male Spiritual care concerns: No Exam Narrative: GENERAL: Well-appearing, well-nourished, and in no acute distress. HEAD: Normocephalic, atraumatic. EYES: PERRLA and EOMI. ENT: Nares clear, no rhinorrhea or epistaxis. Mucous membranes moist. NECK: Supple. CHEST: Clear to auscultation. No respiratory distress. HEART: Regular rate and rhythm. No murmur heard. Normal peripheral pulses. ABDOMEN: Soft, nontender, nondistended, normal active bowel sounds. EXTREMITIES: Normal range of motion. No edema. SKIN: Warm, dry, no rash. NEURO: No focal deficits. Alert and oriented x3. PSYCH: Normal mood and affect. Course Vital Signs Vital signs: Vital Signs Pulse Rate 68 07/06/24 18:07 Respiratory Rate 18 07/06/24 18:07 Blood Pressure 100/70 07/06/24 18:07 Pulse Oximetry 98 07/06/24 18:07 Oxygen Delivery Room Air 07/06/24 18:07 Pulse Rate 59 L 07/06/24 18:50 Respiratory Rate 18 07/06/24 18:50 Blood Pressure 91/66 L 07/06/24 18:50 Pulse Oximetry 97 07/06/24 18:50 Oxygen Delivery Room Air 07/06/24 18:07 Medical Decision Making MDM Narrative Medical decision making narrative: Differential diagnosis includes intracranial hemorrhage, traumatic brain injury The patient is currently at his baseline neurological status. CT head CT C-spine were ordered on the patient CT head showed no evidence acute intracranial hemorrhage CT C-spine showed no evidence of fracture there was question as to asymmetry with the patient has no shortness of breath no swelling of the neck no asymmetry on exam and no difficulty swallowing. Vital Signs Vital Signs: Vital Signs Pulse Rate 68 07/06/24 18:07 Respiratory Rate 18 07/06/24 18:07 Blood Pressure 100/70 07/06/24 18:07 Pulse Oximetry 98 07/06/24 18:07 Oxygen Delivery Room Air 07/06/24 18:07 Pulse Rate 59 L 07/06/24 18:50 Respiratory Rate 18 07/06/24 18:50 Blood Pressure 91/66 L 07/06/24 18:50 Pulse Oximetry 97 07/06/24 18:50 Oxygen Delivery Room Air 07/06/24 18:07 Discharge Plan Discharge Clinical Impression: Head injury, Fall from ground level Patient Disposition: NH [facility]/Asst Living Condition: Stable Instructions: Antibiotic Form, Head Injury (ED) Patient Language: Paraguayan Prescriptions: No Action atorvastatin 40 mg tablet 40 mg PO QHS Rx Instructions: at bedtime benztropine 0.5 mg tablet 0.5 mg PO BID clonidine 0.2 mg/24 hr patch weekly 0.2 patch WEEKLY Rx Instructions: change on friday divalproex 500 mg tablet,delayed release (DR/EC) 500 mg PO DAILY ezetimibe 10 mg tablet 10 mg QNOON famotidine 20 mg tablet 20 mg PO DAILY metoprolol tartrate 50 mg tablet 50 mg DAILY nifedipine 30 mg tablet extended release 24 hr 30 mg PO DAILY Eliquis 5 mg tablet 5 mg PO BID haloperidol 5 mg tablet 5 mg PO BID lorazepam 1 mg tablet 1 mg PO QID haloperidol 5 mg tablet 5 mg PO Q4H PRN (Reason: Agitation) sertraline 50 mg Tablet 75 mg PO DAILY Austedo 6 mg Tablet 6 mg PO BID furosemide 20 mg Tablet 20 mg PO DAILY cholecalciferol (vitamin D3) 125 mcg (5,000 unit) Capsule 125 mcg PO QNOON Follow-up/Referrals: UNKNOWN,DOCTOR [Primary Care Provider] - Time of Disposition: 18:55
[2024-07-06 18:50] VITALS: BP 91/66; PULSE 59; RESP 18; O2SAT 97
[2024-07-06 19:30] VITALS: BP 103/71; PULSE 59; RESP 16
[2024-07-06 20:08] VITALS: BP 93/68; PULSE 57; RESP 16; TEMP 36.4; O2SAT 99
--- NOTE | 2024-07-06 21:11 | PC.NURSE ---
Report to EMS crew-Raymond called and notified by on way home
--- OUTSIDE RECORDS SUMMARY | 2024-07-08 20:18 | XMS_ITS | Clinical Summary ---
Author Organization [facility] Address [address] [place] [address] Care Team Providers Care Restaurant Server Name Role Phone Unavailable Primary Care Provider Unavailabl e Immunizations Immunization Administration Dates Next Due Covid-19, Mrna, Lnp-s, Pf, 30 Mcg/0.3 Ml Dose (P fizer) 04/20/2021 Social History Tobacco Use Types Packs/Day Years Used Date Smoking Tobacco: Never Assessed Sex and Gender Information Value Date Recorded Sex Assigned at Not on file Legal Sex Male 11:16 AM CDT Gender Identity Not on file Sexual Orientation Not on file Plan of Treatment Health Maintenance Due Date Last Done Comments Hepatitis C Virus (HCV) Screening 1961 TdaP Immunization 1961 Colonoscopy 2006 Colorectal Cancer Screening 2006 Cologuard 2011 Immunochemical Fecal Occult Blood 2011 Pneumococcal Immunization (5 0+ years) (1 of 1 - PCV) 2011 Zoster Immunization (1 of 2) 2011 PSA Discussion 01/18/2016 Influenza Immunization (#1) 2024 SARS-COV-2 Immunization (2 - season) 2024 04/20/2021 Respiratory Syncytial Virus (RSV) Immunization (Adult) (1 - 1-dose 75+ series) 01/18/2036 Hepatitis B Immunization Aged Out No longer eligible based on patient's age to complete this topic Meningococcal Immunization (ACWY) Aged Out No longer eligible based on patient's age to complete this topic Pneumococcal Immunization Combined Aged Out No longer eligible based on patient's age to complete this topic Rotavirus Immunization Aged Out No lo nger eligible based on patient's age to complete this topic
--- OUTSIDE RECORDS SUMMARY | 2024-07-08 20:18 | XMS_ITS | CONTINUITY OF CARE DOCUMENT ---
Author Name heriberto louis Address Unknown Organization [facility] Address [address] [place] [address] Phone [phone] Care Team Providers Care Well Head Pumper Name Role Phone Maribell Mackey MD Unavailable BALDO LEE MD Unavailable [phone] BALDO LEE MD Unavailable [phone] PROBLEMS Condition Status Date Provider Notes STEMI 04/2020 - no cardiac cath, left AMA before stress active Maribell Cabral Catatonic schizophrenia active Maribell novoa MD Mitral regurgitation, (mild) active Tim Soliz Carotid bruits, bilateral - less than 50% 01/2020 active Tim Soliz Chest pain active Benjamin Pagan CHF - EF 65% 01/2020 active Tim Soliz Hypertension active Benjamin Pagan Cardiovascular screening completed - Maribell Mackey MD ENCOUNTERS Date Type Provider Location Encounter Diag nosis - In-person encounter Office Visit Maribell Mackey MD [facility] Cardiovascular screeningCatatonic schizophreniaSTEMI 04/2020 - no cardiac cath, left AMA before stress - In-person encounter Office Visit Maribell Mackey MD [facility] CHF - EF 65% 01/2020Carotid bruits, bilateral - less than 50% 01/2020Mitral regurgitation, (mild) - In-person encounter Office Visit Maribell Mackey MD [facility] HypertensionCHF - EF 65% 01/2020Ches pain VITAL SIGNS Date Observation Value Provider Body Mass Index (Ratio) 27.00 kg/m2 Tajosi on [place] blood pressure, resting Yes Tons [facility] blood pressure, diastolic 84 mm[Hg] To nsha [place] blood pressure, systolic 141 mm[Hg] Ton [facility] respiratory rate E&M 16 /min [facility] pulse rate 64 /min [facility] oxygen saturation, oximetry 95 % [facility] weight E&M 216 [lb_av] [facility] height E&M 75 [in_i] [facility] Body Mass Index (Ratio) 26.42 kg/m2 Jord en Ej blood pressure, diastolic 70 mm[Hg] Chano Holden blood pressure, systolic 120 mm[Hg] Paty Chengby pulse rate 86 /min Michelle Holden oxygen saturation, oximetry 97 % Michelle Holden respiratory rate E&M 17 /min Michelle Holden weight E&M 211.4 [lb_av] Michelle Holden height E&M 75 [in_i] Michelle Holden ALLERGIES No Known Drug Allergies HISTORY OF MEDICATION USE Medication Status Instructions Dates Provider Indications Com ments LASIX 20 MG ORAL TABLET active take one tablet by mouth once Michelle Holden ATIVAN 1 MG ORAL TABLET active four times daily Michelle Navin OLANZAPINE 5 MG ORAL TABLET active take one tablet by mouth twice daily Michelle Holden DIVALPROEX SODIUM 125 MG ORAL TABLET DELAYED RELEASE active take one tablet by mouth twice daily Michelle Holden NIFEDIPINE ER 30 MG ORAL TABLET EXTENDED RELEASE 24 HOUR active take one tablet by mouth once Michelle Navin FUROSEMIDE 20 MG ORAL TABLET active take one tablet by mouth once Michelle Chengby ASCRIPTIN 325 MG ORAL TABLET active take one tablet by mouth once daliy Michelle Holden VITAMIN+D3 50,000 active take one table t by mouth once every month Michelle Holden CLONIDINE 0.2 MG/24HR TRANSDERMAL PATCH WEEKLY active apply one patch once weekly Michelle Holden SOCIAL HISTORY Date Observation Value Provider social history E&M S moking History: Fili otth has never smoked. Tim Soliz social history reviewed E&M reviewed - no changes required Tim Soliz smoking status Never smoker Tyler Schwartz number of grandchildren Maribell Pagan social history reviewed E&M reviewed - no changes required Benjamin Pagan smoking status Never smoker Michelle Holden INSURANCE PROVIDERS Payer name Policy type / Coverage type [place] red libertarian ID [employer] COMPLETE (2) Medicare [id number] [place] MEDICAID (2) Medicaid [id number] ADVANCE DIRECTIVES Name Date DISCUSSED - NO DECISION MADE TREATMENT PLAN Date Name Performer Cardiology - complet ed :Carotids today: C ONCLUSIONS: 1 . Mild plaque with less than 50% stenosis of the internal carotid arteries bilaterally. 2 . Vertebral flow is antegrade bilaterally. 3. Technically difficult study due to poor patient compliance, altered mental status. P TAI WHITEAlejandrina Study Dt:01/21/2020 Page 2 E lectronically Signed By: Maribell Thakkar 2 13:44:53 CDT O rders: 9 9215 HIGH Complex (CPT-71615) C arotid Duplex Bilateral (CPT-08488) S chedule Followup (*) Tim Soliz Cardiology - complet ed :echo today: C ONCLUSIONS: 1 . Normal left ventricular systolic function. Normal left ventricular size. Mild concentric left ventricular hypertrophy. There is E to A wave reversal consistent with impaired LV relaxation. E/E': 10.2. Left ventricular ejection fraction is measured at 65 %. 2 . There is non-specific thickening of the mitral valve leaflets. Mild mitral valve regurgitation. 3 . Normal appearing tricuspid valve leaflets. There is trace physiologic tricuspid valve regurgitation. IVC is normal in size with n ormal respiratory response. The RA pressure is estimated at 3.0 mmHg. Estimated peak pulmonary artery systolic pressure i s 22.0 mmHg. 2 13:55:20 CDT His updated medication list for this problem includes: Lasix 20 Mg Oral Tablet (Furosemide) ..... Take one tablet by mouth once daliy Nifedipine Er 30 Mg Oral Tablet Extended Release 24 Hour (Nifedipine) ..... Take one tablet by mouth once daliy Furosemide 20 Mg Oral Tablet (Furosemide) ..... Take one tablet by mouth once daliy Ascriptin 325 Mg Oral Tablet (Aspirin buf([id number])) ..... Take one tablet by mouth once daliy & #13;Orders: 9 9215 HIGH Complex (CPT-78314) C omplete Echo (CPT-53456) S chedule Followup (*) Tim Soliz Cardiology - complet ed :noted on echo today O rders: 9 9215 HIGH Complex (CPT-77832) C omplete Echo (CPT-55350) S chedule Followup (*) Tim Soliz Electrophysiology: H is updated medication list for this problem includes: Nifedipine Er 30 Mg Oral Tablet Extended Release 24 Hour (Nifedipine) ..... Take one tablet by mouth once daliy Ascriptin 325 Mg Oral Tablet (Aspirin buf([id number])) ..... Take one tablet by mouth once daliy Benjamin Pagan Electrophysiology: B P today: 120/70 His updated medication list for this problem includes: Lasix 20 Mg Oral Tablet (Furosemide) ..... Take one tablet by mouth once daliy Nifedipine Er 30 Mg Oral Tablet Extended Release 24 Hour (Nifedipine) ..... Take one tablet by mouth once daliy Furosemide 20 Mg Oral Tablet (Furosemide) ..... Take one tablet by mouth once daliy Ascriptin 325 Mg Oral Tablet (Aspirin buf([id number]-tycrj-aqldi)) ..... Take one tablet by mouth once daliy Clonidine 0.2 Mg/24hr Transdermal Patch Weekly (Clonidine) ..... Apply one patch once weekly Benjamin Pagan Electrophysiology: H is updated medication list for this problem includes: Lasix 20 Mg Oral Tablet (Furosemide) ..... Take one tablet by mouth once daliy Nifedipine Er 30 Mg Oral Tablet Extended Release 24 Hour (Nifedipine) ..... Take one tablet by mouth once daliy Furosemide 20 Mg Oral Tablet (Furosemide) ..... Take one tablet by mouth once daliy Ascriptin 325 Mg Oral Tablet (Aspirin buf([id number]-frjjg-qlnic)) ..... Take one tablet by mouth once daliy Benjamin Pagan Date Name Carotid Duplex Bilat eral Complete Echo Carotid Duplex Bilat eral Complete Echo HISTORY OF PROCEDURES Procedure Date Procedure Name Provider Procedure Notes S tom Schedule Followup Maribell Mackey MD te [employer] video 05/26/2020 2:15PM. completed Schedule Followup Maribell Mackey MD 1 year w SK completed EKG Maribell Mackey MD comp leted EKG Maribell Mackey MD comp leted
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
== END 2024-07-06 21:12 ==
LOC: ANHED 18:28
PROVIDERS: Emergency Provider Emergency Medicine
DX: S09.90XA Unspecified injury of head, initial encounter (principal); W07.XXXA Fall from chair, initial encounter; Z79.01 Long term (current) use of anticoagulants; F41.9 Anxiety disorder, unspecified; I10 Essential (primary) hypertension; E78.5 Hyperlipidemia, unspecified; E11.9 Type 2 diabetes mellitus without complications
CPT/HCPCS: 70450; 72125; 99284

== ENCOUNTER 2024-07-19 17:40 | Emergency (ER) | payer OTHER, SELFPAY ==
--- NOTE | ~2024-07-19 | CT_ITS ---
Noncontrast CT scan of the cervical spine Technique: Multiple contiguous axial [address] images of the cervical spine were obtained and rec onstructed in 2D sagittal and coronal planes on the acquisition scanner. Dose reduction technique was used on this scan by utilizing automated exposure control, adjustment of the mA and/or kV according to patient size. The dose-length product (DLP) was 343.74 mGy-cm. Clinical History: Pain COMPARISON: 07/06/2024 Findings: No fractures or dislocations. Osseous alignment is unchanged from prior exam. There is mul tilevel moderate degenerative disc narrowing throughout the cervical spine. There are mild facet join t degenerative changes in the cervical spine. No prevertebral soft tissue swelling. Impression: No fracture or subluxation of the cervical spine. Stable degenerative change. Reviewed, dictated and finalized at [facility]. MORTISER OPERATOR Impression: No fracture or subluxation of the cervical spine. Stable degenerative change.
--- NOTE | ~2024-07-19 | CT_ITS ---
Non-contrast Head CT History: Head injury COMPARISON: 07/06/2024 Technique: Axial non-contrast imaging of the brain was performed. Dose reduction technique was used on this scan by utilizing automated exposure control and iterative reconstruction technique. The dose -length product (DLP) was 681.00 mGy-cm. Findings: There is no evidence of intracranial hemorrhage, mass lesion, or acute infarct. Brain par enchyma appears normal. The ventricles and subarachnoid spaces are normal in size. The calvarium ap pears normal. The visualized paranasal sinuses and mastoid air cells are clear. Impression: No significant abnormality seen. Reviewed, dictated and finalized at location . THERAPIST Impression: No significant abnormality seen.
--- OUTSIDE RECORDS SUMMARY | 2024-07-19 17:42 | XMS_ITS | CONTINUITY OF CARE DOCUMENT ---
Author Name heriberto louis Address Unknown Organization [facility] Address [address] [place] [address] Phone [phone] Care Team Providers Care Accounting Intern Name Role Phone Maribell Mackey MD Unavailable BALDO LEE MD Unavailable [phone] BALDO LEE MD Unavailable [phone] PROBLEMS Condition Status Date Provider Notes Cardiovascular screening completed - Maribell Mackey MD Hypertension active Benjamin Pagan CHF - EF 65% 01/2020 active Tim Soliz Chest pain active Benjamin Pagan Carotid bruits, bilateral - less than 50% 01/2020 active Tim Soliz Mitral regurgitation, (mild) active Tim Soliz Catatonic schizophrenia active Maribell novoa MD STEMI 04/2020 - no cardiac cath, left AMA before stress active Maribell Cabral ENCOUNTERS Date Type Provider Location Encounter Diag nosis - In-person encounter Office Visit Maribell Mackey MD [facility] Cardiovascular screeningCatatonic schizophreniaSTEMI 04/2020 - no cardiac cath, left AMA before stress - In-person encounter Office Visit Maribell Mackey MD [facility] CHF - EF 65% 01/2020Carotid bruits, bilateral - less than 50% 01/2020Mitral regurgitation, (mild) - In-person encounter Office Visit Maribell Mackey MD [facility] HypertensionCHF - EF 65% 01/2020Ches pain VITAL SIGNS Date Observation Value Provider Body Mass Index (Ratio) 27.00 kg/m2 Tajosi on Martínez blood pressure, resting Yes Tons [facility] blood pressure, diastolic 84 mm[Hg] To nsha Brandamore blood pressure, systolic 141 mm[Hg] Ton [facility] respiratory rate E&M 16 /min [facility] pulse rate 64 /min [facility] oxygen saturation, oximetry 95 % [facility] weight E&M 216 [lb_av] [facility] height E&M 75 [in_i] [facility] Body Mass Index (Ratio) 26.42 [...] social history E&M S moking History: Fili toth has never smoked. Tim Soliz social history reviewed E&M reviewed - no changes required Tim Soliz smoking status Never smoker Tyler Schwartz number of grandchildren Maribell Pagan social history reviewed E&M reviewed - no changes required Benjamin Pagan smoking status Never smoker Michelle Holden INSURANCE PROVIDERS Payer name Policy type / Coverage type [place] red libertarian ID [employer] COMPLETE (2) Medicare [id number] [place] MEDICAID (2) Medicaid [id number] ADVANCE DIRECTIVES Name Date DISCUSSED - NO [...] CDT O rders: 9 9215 HIGH Complex (CPT-59307) C arotid Duplex Bilateral (CPT-94959) S chedule Followup (*) Tim Soliz Cardiology [...] daliy Ascriptin 325 Mg Oral Tablet (Aspirin buf([id number])) ..... Take one tablet by mouth once daliy & #13;Orders: 9 9215 HIGH Complex (CPT-55098) C omplete Echo (CPT-48769) S chedule Followup (*) Tim Soliz Cardiology - complet ed :noted on echo today O rders: 9 9215 HIGH Complex (CPT-26832) C omplete Echo (CPT-68119) S chedule Followup (*) Tim Soliz Electrophysiology: H is updated medication list for this problem includes: Nifedipine Er 30 Mg Oral Tablet Extended Release 24 Hour (Nifedipine) ..... Take one tablet by mouth once daliy Ascriptin 325 Mg Oral Tablet (Aspirin buf([id number]-wayvl-ezxlw)) ..... Take one tablet by mouth once [...] daliy Ascriptin 325 Mg Oral Tablet (Aspirin buf(kwdxg-ccakv-vvvre)) ..... Take one tablet by mouth once [...] daliy Ascriptin 325 Mg Oral Tablet (Aspirin buf(nznqw-pzgoe-uocin)) ..... Take one tablet by mouth once daliy Benjamin Pagan Date Name Carotid Duplex Bilat eral Complete Echo Carotid Duplex Bilat eral Complete Echo HISTORY OF PROCEDURES Procedure Date Procedure Name Provider Procedure Notes S tom Schedule Followup Maribell Mackey MD te [employer] video 05/26/2020 2:15PM. completed Schedule Followup Maribell Mackey MD 1 year w SK completed EKG Maribell Mackey MD comp leted EKG Maribell Maceky MD comp leted
--- OUTSIDE RECORDS SUMMARY | 2024-07-19 17:42 | XMS_ITS | Clinical Summary ---
Author Organization [facility] Address [address] [place] [address] Care Team Providers Care Mid Wife Name Role Phone Unavailable Primary Care Provider [...]
--- OUTSIDE RECORDS SUMMARY | 2024-07-19 17:42 | XMS_ITS | Clinical Summary ---
Author Organization [facility] Address [address] [place] [address] Phone Care Team Providers Care Principal Librarian Name Role Phone Thompson Hare MD Primary [...] Encounters Date Type Department Care Team Description 07/14/2024 External Device Data [facility] ABSTRACTION Provider, Abstract 07/08/2024 External Device Data [facility]STRA[facility] Provider, Abstract 07/06/2024 External Device Data [facility]STRACTION Provider, [...] to complete this topic Insurance MEDICAID [place] [employer] MEDICAID Advance Directives For more information, please contact: [phone] * Full Code (Latest Code Status on File) Date Activated Date Inactivated Comments 08/24/2023 11:35 PM 09/02/2023 6:16 PM Care Teams Principal Librarian Relationship Specialty Start Date End Date Thompson Hare MD NO ADDRESS ON FILE PCP - General Internal Medicine 08/25/23
[2024-07-19 18:06] VITALS: BP 94/56; PULSE 60; RESP 14; TEMP 36.7; O2SAT 100
--- NOTE | 2024-07-19 23:45 | ED.GENADULT ---
HPI - General Adult General Chief complaint: Fall Stated complaint: GLF Time Seen by Provider: 07/19/24 23:05 History of Present Illness HPI narrative: Patient is 64-year-old gentleman presents emergency department with chief complaint of ground level fall at the nursing facility. The patient is normally alert oriented x1 but does communicate somewhat patient currently has no complaint reports that he has no pain. The patient is on Eliquis Related Data Home Medications ?Medication ?Instructions ?Recorded ?Confirmed ?Last Taken ?Type apixaban 5 mg tablet (Eliquis) 5 mg PO BID 08/01/21 01/09/23 Unknown History atorvastatin 40 mg tablet 40 mg PO QHS 08/01/21 01/09/23 Unknown History benztropine 0.5 mg tablet 0.5 mg PO BID 08/01/21 01/09/23 Unknown History clonidine 0.2 mg/24 hr weekly 0.2 patch WEEKLY 08/01/21 01/09/23 01/05/23 History transdermal patch divalproex 500 mg tablet,delayed 500 mg PO DAILY 08/01/21 01/09/23 Unknown History release ezetimibe 10 mg tablet 10 mg QNOON 08/01/21 01/09/23 Unknown History famotidine 20 mg tablet 20 mg PO DAILY 08/01/21 01/09/23 Unknown History haloperidol 5 mg tablet 5 mg PO BID 08/01/21 01/09/23 Unknown History haloperidol 5 mg tablet 5 mg PO Q4H PRN Agitation 08/01/21 01/09/23 Unknown History lorazepam 1 mg tablet 1 mg PO QID 08/01/21 01/09/23 Unknown History metoprolol tartrate 50 mg tablet 50 mg DAILY 08/01/21 01/09/23 Unknown History nifedipine 30 mg tablet,extended 30 mg PO DAILY 08/01/21 01/09/23 Unknown History release 24 hr sertraline 50 mg tablet 75 mg PO DAILY 12/28/21 01/09/23 Unknown History cholecalciferol (vitamin D3) 125 125 mcg PO QNOON 04/01/22 01/09/23 Unknown History mcg (5,000 unit) capsule furosemide 20 mg tablet 20 mg PO DAILY 04/01/22 01/09/23 Unknown History deutetrabenazine 6 mg tablet 6 mg PO BID 01/09/23 01/09/23 Unknown History (Austedo) Allergies Allergy/AdvReac Type Severity Reaction Status Date / Time No Known Allergies Allergy Verified 09/09/23 09:05 Review of Systems Review of Systems: A 10 system review of systems was completed on the patient and is negative except for what is stated in the HPI. Nursing and ancillary documentation was reviewed. [facility] Past Medical History Medical History Anxiety Hypertension Hyperlipidemia Sepsis Shingles DM (diabetes mellitus) H/O: HTN (hypertension) Catatonic schizophrenia UTI (urinary tract infection) Surgical History Surgical History No history of previous surgery Family History Family History Unknown Caregiver unable to obtain copy of document Social History Social History Social History: The patient is single. Nonsmoker. No drug or alcohol. The patient lives in a group home. Mother and father . The patient is nonverbal and was previously listed as a full code. Smoking status: Unknown if ever smoked Alcohol intake: unknown Substance use: unknown Gender identity (if verbalized by the patient): Male Spiritual care concerns: No Exam Narrative: GENERAL: Well-appearing, well-nourished, and in no acute distress. HEAD: Normocephalic, atraumatic. EYES: PERRLA and EOMI. ENT: Nares clear, no rhinorrhea or epistaxis. Mucous membranes moist. NECK: Supple. CHEST: Clear to auscultation. No respiratory distress. HEART: Regular rate and rhythm. No murmur heard. Normal peripheral pulses. ABDOMEN: Soft, nontender, nondistended, normal active bowel sounds. EXTREMITIES: Normal range of motion. No edema. SKIN: Warm, dry, no rash. NEURO: No focal deficits. Alert and oriented x0. PSYCH: Normal mood and affect. Course Vital Signs Vital signs: Vital Signs Temperature 36.7 C 07/19/24 18:06 Pulse Rate 60 07/19/24 18:06 Respiratory Rate 14 07/19/24 18:06 Blood Pressure 94/56 L 07/19/24 18:06 Pulse Oximetry 100 07/19/24 18:06 Temperature 36.7 C 07/19/24 18:06 Pulse Rate 60 07/19/24 18:06 Respiratory Rate 14 07/19/24 18:06 Blood Pressure 94/56 L 07/19/24 18:06 Pulse Oximetry 100 07/19/24 18:06 Medical Decision Making MDM Narrative Medical decision making narrative: Differential diagnosis includes intracranial hemorrhage, cervical spine fracture CT head CT C-spine were negative Patient be discharged back to his nursing facility Vital Signs Vital Signs: Vital Signs Temperature 36.7 C 07/19/24 18:06 Pulse Rate 60 07/19/24 18:06 Respiratory Rate 14 07/19/24 18:06 Blood Pressure 94/56 L 07/19/24 18:06 Pulse Oximetry 100 07/19/24 18:06 Temperature 36.7 C 07/19/24 18:06 Pulse Rate 60 07/19/24 18:06 Respiratory Rate 14 07/19/24 18:06 Blood Pressure 94/56 L 07/19/24 18:06 Pulse Oximetry 100 07/19/24 18:06 Discharge Plan Discharge Clinical Impression: Fall from ground level, Head injury Patient Disposition: NH Longterm/Asst Living Condition: Stable Instructions: Antibiotic Form, Head Injury (ED), Fall Prevention (ED) Patient Language: Sami Prescriptions: No Action atorvastatin 40 mg tablet 40 mg PO QHS Rx Instructions: at bedtime benztropine 0.5 mg tablet 0.5 mg PO BID clonidine 0.2 mg/24 hr patch weekly 0.2 patch WEEKLY Rx Instructions: change on friday divalproex 500 mg tablet,delayed release (DR/EC) 500 mg PO DAILY ezetimibe 10 mg tablet 10 mg QNOON famotidine 20 mg tablet 20 mg PO DAILY metoprolol tartrate 50 mg tablet 50 mg DAILY nifedipine 30 mg tablet extended release 24 hr 30 mg PO DAILY Eliquis 5 mg tablet 5 mg PO BID haloperidol 5 mg tablet 5 mg PO BID lorazepam 1 mg tablet 1 mg PO QID haloperidol 5 mg tablet 5 mg PO Q4H PRN (Reason: Agitation) sertraline 50 mg Tablet 75 mg PO DAILY [place] 6 mg Tablet 6 mg PO BID furosemide 20 mg Tablet 20 mg PO DAILY cholecalciferol (vitamin D3) 125 mcg (5,000 unit) Capsule 125 mcg PO QNOON Follow-up/Referrals: UNKNOWN,DOCTOR [Primary Care Provider] - Time of Disposition: 01:05
[2024-07-20] VITALS: BP 117/80; PULSE 65; RESP 17; TEMP 36.6; O2SAT 100
--- OUTSIDE RECORDS SUMMARY | 2024-07-20 | XMS_ITS | Clinical Summary ---
Author Organization [facility] Address [address] [place] [address] Phone Care Team Providers Care Supervising Appraiser Name Role Phone Thompson Hare MD Primary [...] Advance Directives For more information, please contact: [phone] * Full Code (Latest Code Status on File) Date Activated Date Inactivated Comments 08/24/2023 11:35 PM 09/02/2023 6:16 PM Care Teams Supervising Appraiser Relationship Specialty Start Date End Date Thompson Hare MD NO ADDRESS ON FILE PCP - General Internal Medicine 08/25/23
--- OUTSIDE RECORDS SUMMARY | 2024-07-20 | XMS_ITS | Clinical Summary ---
Author Organization [facility] Address [address] [place] [address] Care Team Providers Care Human Services Professional Name Role Phone Unavailable Primary Care Provider [...]
--- OUTSIDE RECORDS SUMMARY | 2024-07-20 | XMS_ITS | CONTINUITY OF CARE DOCUMENT ---
Author Name heriberto louis Address Unknown Organization [facility] Address [address] [place] [address] Phone [phone] Care Team Providers Care Commercial Estimator Name Role Phone Maribell Mackey MD Unavailable BALDO LEE MD Unavailable [phone] BALDO LEE MD Unavailable [phone] PROBLEMS Condition Status Date Provider Notes Cardiovascular [...] In-person encounter Office Visit Maribell Mackey MD [place] [facility] Cardiovascular screeningCatatonic schizophreniaSTEMI 04/2020 - no cardiac cath, left AMA before stress - In-person encounter Office Visit Maribell Mackey MD [place] [facility] CHF - EF 65% 01/2020Carotid bruits, bilateral - less than 50% 01/2020Mitral regurgitation, (mild) - In-person encounter Office Visit Maribell Mackey MD [place] [facility] HypertensionCHF - EF 65% 01/2020Ches pain VITAL SIGNS Date Observation Value Provider Body Mass Index (Ratio) 27.00 kg/m2 [place] blood pressure, resting Yes Tons [facility] blood pressure, diastolic 84 mm[Hg] To nsha Koloa blood pressure, systolic 141 mm[Hg] Ton [facility] respiratory rate E&M 16 /min [facility] pulse rate 64 /min [facility] oxygen saturation, oximetry 95 % [facility] weight E&M 216 [lb_av] [facility] height E&M 75 [in_i] [facility] Body Mass Index (Ratio) 26.42 kg/m2 Jord [...] Payer name Policy type / Coverage type [place] red republican ID MERIDIAN COMPLETE (2) Medicare [id number] [place] MED[place] (2) Medicaid [id number] ADVANCE DIRECTIVES Name Date DISCUSSED - NO [...] CDT O rders: 9 9215 HIGH Complex (CPT-51171) C arotid Duplex Bilateral (CPT-63532) S chedule Followup (*) Tim Soliz Cardiology [...] daliy Ascriptin 325 Mg Oral Tablet (Aspirin buf([id number])) ..... Take one tablet by mouth once daliy & #13;Orders: 9 9215 HIGH Complex (CPT-67154) C omplete Echo (CPT-86603) S chedule Followup (*) Tim Soliz Cardiology - complet ed :noted on echo today O rders: 9 9215 HIGH Complex (CPT-01540) C omplete Echo (CPT-78460) S chedule Followup (*) Tim Soliz Electrophysiology: H is updated medication list for this problem includes: Nifedipine Er 30 Mg Oral Tablet Extended Release 24 Hour (Nifedipine) ..... Take one tablet by mouth once daliy Ascriptin 325 Mg Oral Tablet (Aspirin buf([id number])) ..... Take one tablet by mouth once [...] daliy Ascriptin 325 Mg Oral Tablet (Aspirin buf([id number])) ..... Take one tablet by mouth once [...] daliy Ascriptin 325 Mg Oral Tablet (Aspirin buf([id number])) ..... Take one tablet by mouth once daliy Benjamin Pagan Date Name Carotid Duplex Bilat eral Complete Echo Carotid Duplex Bilat eral Complete Echo HISTORY OF PROCEDURES Procedure Date Procedure Name Provider Procedure Notes S tom Schedule Followup Maribell Mackey MD te [employer] video 05/26/2020 2:15PM. completed Schedule Followup Maribell Mackey MD 1 year w SK completed EKG Maribell Mackey MD comp leted EKG Maribell Mackey MD comp leted
[2024-07-20 01:22] VITALS: BP 112/73; PULSE 61; RESP 13; TEMP 36.7; O2SAT 100
[2024-07-20 02:49] VITALS: BP 114/76; PULSE 85; RESP 17; TEMP 36.7; O2SAT 99
[2024-07-20 05:26] VITALS: BP 111/92; PULSE 59; RESP 16; TEMP 36.8; O2SAT 98
[2024-07-20 07:12] VITALS: BP 124/75; PULSE 52; RESP 14; O2SAT 98
== END 2024-07-20 08:45 ==
PROVIDERS: Emergency Provider Emergency Medicine
DX: S09.90XA Unspecified injury of head, initial encounter (principal); I10 Essential (primary) hypertension; E78.5 Hyperlipidemia, unspecified; E11.9 Type 2 diabetes mellitus without complications; F41.9 Anxiety disorder, unspecified; Z87.440 Personal history of urinary (tract) infections; Z79.01 Long term (current) use of anticoagulants; Z79.899 Other long term (current) drug therapy; W18.30XA Fall on same level, unspecified, initial encounter
CPT/HCPCS: 70450; 72125; 99284

== ENCOUNTER 2024-08-15 14:46 | Emergency (ER) | payer OTHER, SELFPAY ==
[2024-08-15 14:52] VITALS: BP 115/87; PULSE 89; RESP 17; TEMP 36.6; O2SAT 96
--- NOTE | 2024-08-15 15:21 | ED.GENADULT ---
HPI - General Adult General Chief complaint: Wound/Laceration Stated complaint: chin lac Time Seen by Provider: 08/15/24 15:06 History of Present Illness HPI narrative: Patient is a 64-year-old male with history of dementia who presents ER after a fall at his senior living. He struck his chin. He is on Eliquis. He has a small laceration under his chin. He will only intermittently answer what his name is but otherwise says he wants to go home and does not talk. Related Data Home Medications ?Medication ?Instructions ?Recorded ?Confirmed ?Last Taken ?Type apixaban 5 mg tablet (Eliquis) 5 mg PO BID 08/01/21 01/09/23 Unknown History atorvastatin 40 mg tablet 40 mg PO QHS 08/01/21 01/09/23 Unknown History benztropine 0.5 mg tablet 0.5 mg PO BID 08/01/21 01/09/23 Unknown History clonidine 0.2 mg/24 hr weekly 0.2 patch WEEKLY 08/01/21 01/09/23 01/05/23 History transdermal patch divalproex 500 mg tablet,delayed 500 mg PO DAILY 08/01/21 01/09/23 Unknown History release ezetimibe 10 mg tablet 10 mg QNOON 08/01/21 01/09/23 Unknown History famotidine 20 mg tablet 20 mg PO DAILY 08/01/21 01/09/23 Unknown History haloperidol 5 mg tablet 5 mg PO BID 08/01/21 01/09/23 Unknown History haloperidol 5 mg tablet 5 mg PO Q4H PRN Agitation 08/01/21 01/09/23 Unknown History lorazepam 1 mg tablet 1 mg PO QID 08/01/21 01/09/23 Unknown History metoprolol tartrate 50 mg tablet 50 mg DAILY 08/01/21 01/09/23 Unknown History nifedipine 30 mg tablet,extended 30 mg PO DAILY 08/01/21 01/09/23 Unknown History release 24 hr sertraline 50 mg tablet 75 mg PO DAILY 12/28/21 01/09/23 Unknown History cholecalciferol (vitamin D3) 125 125 mcg PO QNOON 04/01/22 01/09/23 Unknown History mcg (5,000 unit) capsule furosemide 20 mg tablet 20 mg PO DAILY 04/01/22 01/09/23 Unknown History deutetrabenazine 6 mg tablet 6 mg PO BID 01/09/23 01/09/23 Unknown History (Austedo) Allergies Allergy/AdvReac Type Severity Reaction Status Date / Time No Known Allergies Allergy Verified 09/09/23 09:05 Review of Systems Review of Systems: ROS unobtainable: Yes unobtainable due to mental status PMFSH Past Medical History Medical History Anxiety Hypertension Hyperlipidemia Sepsis Shingles DM (diabetes mellitus) H/O: HTN (hypertension) Catatonic schizophrenia UTI (urinary tract infection) Surgical History Surgical History No history of previous surgery Family History Family History Unknown Caregiver unable to obtain copy of document Social History Social History Social History: The patient is single. Nonsmoker. No drug or alcohol. The patient lives in a senior living. Mother and father . The patient is nonverbal and was previously listed as a full code. Smoking status: Unknown if ever smoked Alcohol intake: unknown Substance use: unknown Gender identity (if verbalized by the patient): Male Spiritual care concerns: No Exam Narrative: GENERAL: Well-appearing, well-nourished, and in no acute distress. HEAD: Normocephalic, atraumatic. EYES: PERRL and EOMI. ENT: Mucous membranes moist. Hematoma of the chin as well as 1 cm laceration. NECK: Supple. Full range of motion. CHEST: Clear to auscultation. No respiratory distress. HEART: Regular rate and rhythm. Normal peripheral pulses. EXTREMITIES: Normal range of motion. No edema. NEURO: Alert and oriented x1. PSYCH: Normal mood and affect. Course Course Emergency Course: Wound repaired. No acute intracranial injury. Has ambulated with a steady gait here. Discharge. Vital Signs Vital signs: Vital Signs Temperature 97.9 F 08/15/24 14:52 Pulse Rate 89 08/15/24 14:52 Respiratory Rate 17 08/15/24 14:52 Blood Pressure 115/87 08/15/24 14:52 Pulse Oximetry 96 08/15/24 14:52 Oxygen Delivery Room Air 08/15/24 14:52 Temperature 97.9 F 08/15/24 14:52 Pulse Rate 89 08/15/24 14:52 Respiratory Rate 17 08/15/24 14:52 Blood Pressure 115/87 08/15/24 14:52 Pulse Oximetry 96 08/15/24 14:52 Oxygen Delivery Room Air 08/15/24 14:52 Procedures Laceration Laceration 1: Date: 08/15/24 Time: 15:22 Site: other (chin) Size (cm): 1 Description: linear Depth: simple, single layer Local Anesthetic: lidocaine 1% and with epi Amount of anesthesia used (mL): 3 Pre-repair: wound explored and irrigated ====== Skin Level ====== Skin layer closed with: nylon Size (cm): 4-0 Number of sutures: 2 Technique: simple, interrupted ====== Subcutaneous Layer ====== ====== Muscle Layer ====== ====== Tendon Layer ====== Medical Decision Making Vital Signs Vital Signs: Vital Signs Temperature 97.9 F 08/15/24 14:52 Pulse Rate 89 08/15/24 14:52 Respiratory Rate 17 08/15/24 14:52 Blood Pressure 115/87 08/15/24 14:52 Pulse Oximetry 96 08/15/24 14:52 Oxygen Delivery Room Air 08/15/24 14:52 Temperature 97.9 F 08/15/24 14:52 Pulse Rate 89 08/15/24 14:52 Respiratory Rate 17 08/15/24 14:52 Blood Pressure 115/87 08/15/24 14:52 Pulse Oximetry 96 08/15/24 14:52 Oxygen Delivery Room Air 08/15/24 14:52 Discharge Plan Discharge Clinical Impression: Chin laceration Patient Disposition: Home, Self-Care Condition: Stable Instructions: Care For Your Stitches (ED) Additional Instructions: Return to the ER if your wound becomes red and hot, it is draining pus, or you have additional concerns. Remove your sutures in 5 days. Patient Language: Faroese Prescriptions: No Action atorvastatin 40 mg tablet 40 mg PO QHS Rx Instructions: at bedtime benztropine 0.5 mg tablet 0.5 mg PO BID clonidine 0.2 mg/24 hr patch weekly 0.2 patch WEEKLY Rx Instructions: change on friday divalproex 500 mg tablet,delayed release (DR/EC) 500 mg PO DAILY ezetimibe 10 mg tablet 10 mg QNOON famotidine 20 mg tablet 20 mg PO DAILY metoprolol tartrate 50 mg tablet 50 mg DAILY nifedipine 30 mg tablet extended release 24 hr 30 mg PO DAILY Eliquis 5 mg tablet 5 mg PO BID haloperidol 5 mg tablet 5 mg PO BID lorazepam 1 mg tablet 1 mg PO QID haloperidol 5 mg tablet 5 mg PO Q4H PRN (Reason: Agitation) sertraline 50 mg Tablet 75 mg PO DAILY Austedo 6 mg Tablet 6 mg PO BID furosemide 20 mg Tablet 20 mg PO DAILY cholecalciferol (vitamin D3) 125 mcg (5,000 unit) Capsule 125 mcg PO QNOON Follow-up/Referrals: UNKNOWN,DOCTOR [Primary Care Provider] - 1 Week
[2024-08-15 17:19] VITALS: BP 121/78; PULSE 72; RESP 20; O2SAT 98
== END 2024-08-15 18:12 ==
PROVIDERS: Emergency Provider Emergency Medicine
DX: S01.81XA Laceration without foreign body of other part of head, initial encounter (principal); I10 Essential (primary) hypertension; E78.5 Hyperlipidemia, unspecified; E11.9 Type 2 diabetes mellitus without complications; F41.9 Anxiety disorder, unspecified; F20.2 Catatonic schizophrenia; Z87.440 Personal history of urinary (tract) infections; Z79.01 Long term (current) use of anticoagulants; Z79.899 Other long term (current) drug therapy; W19.XXXA Unspecified fall, initial encounter
CPT/HCPCS: 12011; 70450; 70486; 72125; 99284; J2004

== ENCOUNTER 2024-09-16 07:51 | Emergency (ER) | payer OTHER, SELFPAY ==
--- NOTE | ~2024-09-16 | CT_ITS ---
EXAMINATION: CT cervical spine wo con DATE: 09/16/2024 08:29 INDICATION: Neck likely patient post fall with head injury TECHNIQUE: Computed tomography (CT) of the cervical spine was performed without intravenous contrast. Automated exposure control and iterative reconstruction technique were employed. The dose-length pro duct was 444.55 mGy-cm. COMPARISON: None FINDINGS: There is straightening of the normal lordosis in the mid to upper cervical spine. Vertebral body heig hts are normal. No fracture. Moderate disc height loss at C2-C3, C3-C4 and C4-C5 and mild disc height loss at C5-C6. Disc bulges and disc osteophyte complexes contribute to mild central canal stenosis a t C3-C4, C4-C5 and C5-C6. Mild to moderate uncovertebral osteoarthritis and mild facet osteoarthritis which contributes to minimal neural foraminal stenosis at several levels on the left and right. Cerv ical soft tissues are unremarkable. Visualized upper lungs are clear. IMPRESSION: 1. Moderate cervical spondylosis. No acute osseous abnormality. Reviewed, dictated and finalized at location A.
--- NOTE | ~2024-09-16 | CT_ITS ---
Non-contrast Head CT History: Status post fall, anticoagulated patient COMPARISON: 08/15/2024 Technique: Axial non-contrast imaging of the brain was performed. Dose reduction technique was used on this scan by utilizing automated exposure control and iterative reconstruction technique. The dose -length product (DLP) was 605.33 mGy-cm. Findings: There is no evidence of intracranial hemorrhage, mass lesion, or acute infarct. Brain par enchyma appears normal. The ventricles and subarachnoid spaces are normal in size. The calvarium ap pears normal. The visualized paranasal sinuses and mastoid air cells are clear. Impression: No significant abnormality seen. Reviewed, dictated and finalized at location . Impression: No significant abnormality seen.
[2024-09-16 07:42] VITALS: BP 141/92; PULSE 97; RESP 20; TEMP 36.3; O2SAT 96
--- NOTE | 2024-09-16 08:17 | PC.NURSE ---
pt was in room 14 with all fall precautions in place. pt bed alarm went off, this RN and 2 other RN went to check on pt and he was walking out of his room. pt is now in room 7 closer to the nurses station with a sitter at bedside.
--- OUTSIDE RECORDS SUMMARY | 2024-09-16 08:18 | XMS_ITS | CONTINUITY OF CARE DOCUMENT ---
Author Name heriberto louis Address Unknown Organization [facility] Address [address] [place] [address] Phone [phone] Care Team Providers Care Granite Countertop Installer Name Role Phone Maribell Mackey MD Unavailable BALDO LEE MD Unavailable [phone] BALDO LEE MD Unavailable [phone] PROBLEMS Condition Status Date Provider Notes Hypertension active Benjamin Pagan CHF - EF 65% 01/2020 active Tim Soliz Chest pain active Benjamin Pagan Carotid bruits, bilateral - less than 50% 01/2020 active Tim Soliz Mitral regurgitation, (mild) active Tim Soliz STEMI 04/2020 - no cardiac cath, left AMA before stress active Maribell Cabral Catatonic schizophrenia active Maribell novoa MD Cardiovascular screening completed - Maribell Mackey MD ENCOUNTERS Date Type Provider Location Encounter Diag nosis - In-person encounter Office Visit Maribell Mackey MD [place] [facility] Cardiovascular screeningCatatonic schizophreniaSTEMI 04/2020 - no cardiac cath, left AMA before stress - In-person encounter Office Visit Maribell Mackey MD [place] [facility] CHF - EF 65% 01/2020Carotid bruits, bilateral - less than 50% 01/2020Mitral regurgitation, (mild) - In-person encounter Office Visit Maribell Mackey MD [place] [facility] HypertensionCHF - EF 65% 01/2020Ches pain VITAL SIGNS Date Observation Value Provider Body Mass Index (Ratio) 27.00 kg/m2 [place] on [place] blood pressure, resting Yes Tons [facility] blood pressure, diastolic 84 mm[Hg] To nsha [place] blood pressure, systolic 141 mm[Hg] Ton [facility] [place] respiratory rate E&M 16 /min [facility] pulse rate 64 /min [facility] oxygen saturation, oximetry 95 % [facility] weight E&M 216 [lb_av] [facility] height E&M 75 [in_i] [facility] Body Mass Index (Ratio) 26.42 kg/m2 [...] take one tablet by mouth once [place] FUROSEMIDE 20 MG ORAL TABLET active take [...] Payer name Policy type / Coverage type [place] red alliance party ID MERIDIAN COMPLETE (2) Medicare [id number] [place] MEDICAID (2) Medicaid [id number] ADVANCE DIRECTIVES Name Date DISCUSSED - NO [...] CDT O rders: 9 9215 HIGH Complex (CPT-75026) C arotid Duplex Bilateral (CPT-25608) S chedule Followup (*) Tim Soliz Cardiology [...] daliy Ascriptin 325 Mg Oral Tablet (Aspirin buf([id number])) ..... Take one tablet by mouth once daliy & #13;Orders: 9 9215 HIGH Complex (CPT-68378) C omplete Echo (CPT-79734) S chedule Followup (*) Tim Soliz Cardiology - complet ed :noted on echo today O rders: 9 9215 HIGH Complex (CPT-47024) C omplete Echo (CPT-47256) S chedule Followup (*) Tim Soliz Electrophysiology: H is updated medication list for this problem includes: Nifedipine Er 30 Mg Oral Tablet Extended Release 24 Hour (Nifedipine) ..... Take one tablet by mouth once daliy Ascriptin 325 Mg Oral Tablet (Aspirin buf([id number]-[id number])) ..... Take one tablet by mouth once [...] daliy Ascriptin 325 Mg Oral Tablet (Aspirin buf([id number]-qpcrx-qoeog)) ..... Take one tablet by mouth once [...] daliy Ascriptin 325 Mg Oral Tablet (Aspirin buf([id number]-ojvui-hyrat)) ..... Take one tablet by mouth once daliy Benjamin Pagan Date Name Carotid Duplex Bilat eral Complete Echo Carotid Duplex Bilat eral Complete Echo HISTORY OF PROCEDURES Procedure Date Procedure Name Provider Procedure Notes S tom Schedule Followup Maribell Mackey MD te [facility] video 05/26/2020 2:15PM. completed Schedule Followup Maribell Mackey MD 1 year w SK completed EKG Maribell Mackey MD comp leted EKG Maribell Mackey MD comp leted
--- OUTSIDE RECORDS SUMMARY | 2024-09-16 08:18 | XMS_ITS | Clinical Summary ---
Author Organization [facility] Address [address] [place] [address] Care Team Providers Care Desktop Engineer Name Role Phone Unavailable Primary Care Provider [...] 2011 Zoster Immunization (1 of 2) 2011 Influenza Immunization (#1) 2024 SARS-COV-2 Immunization (2 [...]
--- OUTSIDE RECORDS SUMMARY | 2024-09-16 08:18 | XMS_ITS | Clinical Summary ---
Author Organization [facility] Address [address] [place] [address] Phone Care Team Providers Care Rn Family Name Role Phone Thompson Hare MD Primary [...] Encounters Date Type Department Care Team Description 09/01/2024 External Device Data [facility] ABSTRACTION Provider, Abstract 08/21/2024 External Device Data [facility]STRACTION Provider, Abstract 08/21/2024 External Device Data [facility]STRACTION Provider, Abstract 08/18/2024 External Device Data [facility] ABSTRACTION Provider, Abstract 08/18/2024 External Device Data [facility] ABSTRACTION Provider, Abstract 08/04/2024 External Device Data [facility] ABSTRACTION Provider, Abstract 07/14/2024 External Device Data [facility] ABSTRACTION Provider, [...] 78 09/02/2023 3:16 PM CDT Temperature 36.6 C (97.8 F) 09/02/2023 11:16 AM CDT Respiratory Rate 28 09/02/2023 11:16 AM CDT [...] 1-dose series) 2021 INFLUENZA VACCINE (#1) 2024 Insurance MEDICAID [place] [address] [employer] MEDICA[employer] Advance Directives For more information, please contact: [phone] * Full Code (Latest Code Status on File) Date Activated Date Inactivated Comments 08/24/2023 11:35 PM 09/02/2023 6:16 PM Care Teams Rn Family Relationship Specialty Start Date End Date Thompson Hare MD NO ADDRESS ON FILE PCP - General Internal Medicine 08/25/23
--- NOTE | 2024-09-16 08:47 | ED_ITS ---
HPI - General Adult General Chief complaint: Fall Stated complaint: fall Time Seen by Provider: 09/16/24 08:07 History of Present Illness HPI narrative: 64-year-old male emergency department for evaluation after having an unwitnessed fall. Patient denies any pain or complaints but patient is typically nonverbal at his baseline. Patient was ambulating in the emergency department spontaneously and patient was asking for orange juice. Related Data Home Medications ?Medication ?Instructions ?Recorded ?Confirmed ?Last Taken ?Type apixaban 5 mg tablet (Eliquis) 5 mg PO BID 08/01/21 01/09/23 Unknown History atorvastatin 40 mg tablet 40 mg PO QHS 08/01/21 01/09/23 Unknown History benztropine 0.5 mg tablet 0.5 mg PO BID 08/01/21 01/09/23 Unknown History clonidine 0.2 mg/24 hr weekly 0.2 patch WEEKLY 08/01/21 01/09/23 01/05/23 History transdermal patch divalproex 500 mg tablet,delayed 500 mg PO DAILY 08/01/21 01/09/23 Unknown History release ezetimibe 10 mg tablet 10 mg QNOON 08/01/21 01/09/23 Unknown History famotidine 20 mg tablet 20 mg PO DAILY 08/01/21 01/09/23 Unknown History haloperidol 5 mg tablet 5 mg PO BID 08/01/21 01/09/23 Unknown History haloperidol 5 mg tablet 5 mg PO Q4H PRN Agitation 08/01/21 01/09/23 Unknown History lorazepam 1 mg tablet 1 mg PO QID 08/01/21 01/09/23 Unknown History metoprolol tartrate 50 mg tablet 50 mg DAILY 08/01/21 01/09/23 Unknown History nifedipine 30 mg tablet,extended 30 mg PO DAILY 08/01/21 01/09/23 Unknown History release 24 hr sertraline 50 mg tablet 75 mg PO DAILY 12/28/21 01/09/23 Unknown History cholecalciferol (vitamin D3) 125 125 mcg PO QNOON 04/01/22 01/09/23 Unknown History mcg (5,000 unit) capsule furosemide 20 mg tablet 20 mg PO DAILY 04/01/22 01/09/23 Unknown History deutetrabenazine 6 mg tablet 6 mg PO BID 01/09/23 01/09/23 Unknown History (Austedo) Allergies Allergy/AdvReac Type Severity Reaction Status Date / Time No Known Allergies Allergy Verified 09/16/24 08:03 Review of Systems Review of Systems: ROS unobtainable: Yes unobtainable due to medical condition PMFSH Past Medical History Medical History Anxiety Hypertension Hyperlipidemia Sepsis Shingles DM (diabetes mellitus) H/O: HTN (hypertension) Catatonic schizophrenia UTI (urinary tract infection) Surgical History Surgical History No history of previous surgery Family History Family History Unknown Caregiver unable to obtain copy of document Social History Social History Social History: The patient is single. Nonsmoker. No drug or alcohol. The patient lives in a detention. Mother and father . The patient is nonverbal and was previously listed as a full code. Smoking status: Unknown if ever smoked Alcohol intake: unknown Substance use: unknown Gender identity (if verbalized by the patient): Male Spiritual care concerns: No Exam Narrative: APPEARANCE: Well appearing, no pain, no distress, well-nourished. HEAD: normocephalic, atraumatic. EYES: PERRLA/EOMI, conjunctivae clear. NOSE: Normal no drainage EARS:TMS clear with good light reflex. THROAT: Pharynx clear, no exudate. NECK: Supple. No adenopathy, no masses. RESPIRATORY: Airway patent, respirations nonlabored. Clear to auscultation bilaterally, no rales, rhonchi, wheezing. CARDIOVASCULAR: Regular rate and rhythm without murmurs rubs or gallops. ABDOMINAL: Soft, nontender, nondistended, normal bowel sounds MUSCULOSKELETAL: Moves all extremities. Strength/ROM intact, No edema, No calf tenderness. NEURO: Alert. Cranial nerves II through XII intact. Good gait. Good coordination SKIN: Warm, dry. Normal Color PSYCHIATRIC: Normal affect/mood. Course Vital Signs Vital signs: Vital Signs Temperature 97.4 F L 09/16/24 07:42 Pulse Rate 97 09/16/24 07:42 Respiratory Rate 20 09/16/24 07:42 Blood Pressure 141/92 H 09/16/24 07:42 Pulse Oximetry 96 09/16/24 07:42 Oxygen Delivery Room Air 09/16/24 07:42 Temperature 97.4 F L 09/16/24 07:42 Pulse Rate 97 09/16/24 07:42 Respiratory Rate 20 09/16/24 07:42 Blood Pressure 141/92 H 09/16/24 07:42 Pulse Oximetry 96 09/16/24 07:42 Oxygen Delivery Room Air 09/16/24 07:42 Medical Decision Making MDM Narrative Medical decision making narrative: 64-year-old male presents emergency department for evaluation of upper ground level fall. Head CT was neck neck CT was negative Differential Diagnosis Differential Diagnosis: Subarachnoid hemorrhage, subdural hematoma, cervical spine fracture Vital Signs Vital Signs: Vital Signs Temperature 97.4 F L 09/16/24 07:42 Pulse Rate 97 09/16/24 07:42 Respiratory Rate 20 09/16/24 07:42 Blood Pressure 141/92 H 09/16/24 07:42 Pulse Oximetry 96 09/16/24 07:42 Oxygen Delivery Room Air 09/16/24 07:42 Temperature 97.4 F L 09/16/24 07:42 Pulse Rate 97 09/16/24 07:42 Respiratory Rate 20 09/16/24 07:42 Blood Pressure 141/92 H 09/16/24 07:42 Pulse Oximetry 96 09/16/24 07:42 Oxygen Delivery Room Air 09/16/24 07:42 Imaging Data Radiologist's impression: Impressions Head CT 09/16/24 08:30 Impression: No significant abnormality seen. Cervical Spine CT 09/16/24 08:35 IMPRESSION: 1. Moderate cervical spondylosis. No acute osseous abnormality. Discharge Plan Discharge Clinical Impression: Catatonic schizophrenia, Head injury Patient Disposition: NH Usp/Asst Living Condition: Stable Instructions: Antibiotic Form, Head Injury (ED) Additional Instructions: Have close follow-up with your primary care physician. Patient Language: Norwegian Prescriptions: No Action atorvastatin 40 mg tablet 40 mg PO QHS Rx Instructions: at bedtime benztropine 0.5 mg tablet 0.5 mg PO BID clonidine 0.2 mg/24 hr patch weekly 0.2 patch WEEKLY Rx Instructions: change on friday divalproex 500 mg tablet,delayed release (DR/EC) 500 mg PO DAILY ezetimibe 10 mg tablet 10 mg QNOON famotidine 20 mg tablet 20 mg PO DAILY metoprolol tartrate 50 mg tablet 50 mg DAILY nifedipine 30 mg tablet extended release 24 hr 30 mg PO DAILY Eliquis 5 mg tablet 5 mg PO BID haloperidol 5 mg tablet 5 mg PO BID lorazepam 1 mg tablet 1 mg PO QID haloperidol 5 mg tablet 5 mg PO Q4H PRN (Reason: Agitation) sertraline 50 mg Tablet 75 mg PO DAILY Austedo 6 mg Tablet 6 mg PO BID furosemide 20 mg Tablet 20 mg PO DAILY cholecalciferol (vitamin D3) 125 mcg (5,000 unit) Capsule 125 mcg PO QNOON Follow-up/Referrals: UNKNOWN,DOCTOR [Primary Care Provider] -
--- NOTE | 2024-09-16 09:00 | PC.NURSE ---
this RN called report to pt facility to let them know pt is coming back MARCELINA Jean did let me know the pt is on [facility] and is a DNR
== END 2024-09-16 09:35 ==
PROVIDERS: Emergency Provider Emergency Medicine
DX: S09.90XA Unspecified injury of head, initial encounter (principal); F20.2 Catatonic schizophrenia; I10 Essential (primary) hypertension; E78.5 Hyperlipidemia, unspecified; E11.9 Type 2 diabetes mellitus without complications; W19.XXXA Unspecified fall, initial encounter
CPT/HCPCS: 70450; 72125; 99284

== ENCOUNTER 2024-11-11 20:07 | Emergency (ER) | payer OTHER, SELFPAY ==
--- NOTE | ~2024-11-11 | XR_ITS ---
XR hip BI 2V w AP pelvis Ordering provider: Keyona Flores PA-C History: . fall, unknown injury . Comparison: April 01, 2022 FINDINGS: BONES: No acute fracture or dislocation. HIP JOINT SPACES: Moderate osteoarthritis bilaterally. SACROILIAC JOINT SPACES/LUMBAR SPINE: The sacroiliac joint spaces are normal. Mild degenerative garcia es of the visualized lower lumbar spine. PUBIC SYMPHYSIS: Normal. SOFT TISSUES: Normal. IMPRESSION: No acute osseous abnormality of the bilateral hips and pelvis. Bilateral moderate hip osteoarthritic changes. Reviewed, dictated and finalized at location A.
--- NOTE | ~2024-11-11 | XR_ITS ---
XR chest 1V Ordering provider: Keyona Flores PA-C History: 64 years Male with . fall, unknown injury . Comparison: May 05, 2024 FINDINGS: MEDIASTINUM: The cardiac silhouette is not enlarged. Prominent tanisha. LUNGS: No effusions or pneumothorax. Subsegmental atelectasis in the left lung base. OTHER: No free air under the diaphragm. Degenerative changes of the spine. IMPRESSION: Subsegmental atelectasis versus focal pneumonia in the left lung base. Reviewed, dictated and finalized at location A.
--- NOTE | ~2024-11-11 | CT_ITS ---
CT cervical spine wo con Ordering provider: Keyona Flores PA-C History: . fall, [place] . Comparison: September 16, 2024 Technique: CT of the cervical spine was performed without contrast. Sagittal and coronal reformatted images were also obtained and reviewed. Automated exposure control and iterative reconstruction guanakito hnique were employed. The dose-length product was 434.11 mGy-cm. FINDINGS: VERTEBRAE: No subluxation or acute fracture. The occipital condyles are intact. Mild degenerative ch anges. DISC SPACES: Narrowing of the disc C2-C3, C3-C4, C4-C5 and C5-C6. Multilevel facet joint disease. Mul tilevel uncovertebral joint degenerative changes. Narrowing of the left foramina at the level of C2-C 3. PARASPINOUS SOFT TISSUES: Bilateral carotid calcification. Atherosclerotic changes of the vertebral a rteries. IMPRESSION: No acute osseous abnormality cervical spine. Multilevel degenerative disc disease. Reviewed, dictated and finalized at location A.
--- NOTE | ~2024-11-11 | CT_ITS ---
CT brain wo con Ordering provider: Keyona Flores PA-C History: 64 years Male with . fall, [place] . Comparison: September 21, 2024 Computed Technique: CT of the head without contrast. Radiation reduction technique utilized.The dose-length pr oduct was 1362 mGy-cm. FINDINGS: BRAIN PARENCHYMA AND CSF SPACES: Mild leukoaraiosis and diffuse cortical atrophy. Mild atheromatous d isease. No midline shift, mass effect or hemorrhage. The brain parenchyma and CSF spaces are otherwi se normal. VISUALIZED PARANASAL SINUSES: Well aerated. MASTOIDS: Well aerated. BONES: The bones appear intact. SOFT TISSUES: Visualized nasopharynx is normal. Scalp hematoma in the right frontal area. Superficia l soft tissues are normal. IMPRESSION: No acute intracranial findings. Reviewed, dictated and finalized at location A.
[2024-11-11 20:19] VITALS: BP 115/81; PULSE 87; RESP 17; TEMP 36.3; O2SAT 96
--- NOTE | 2024-11-11 21:09 | ED.FALL ---
HPI - Fall General Chief Complaint: Fall Stated Complaint: Catatonic Schizo vs manic; fall with hematoma Time Seen by Provider: 11/11/24 20:14 Source: patient, EMS, RN notes reviewed and old records reviewed Mode of arrival: EMS Limitations: clinical condition History of Present Illness HPI Narrative: Patient is a 64-year-old male, past medical history of catatonic schizophrenia, HTN, DM, chronic anticoagulation, who presents to the ED via EMS with report of a fall. Patient is a resident of [facility]. Patient is well known to our facility, has had several documented visits here demonstrating catatonic behavior. He was reportedly walking around the facility today when he had an unwitnessed fall. He did sustain head injury, small hematoma to right forehead with a superficial laceration between his eyebrows. Staff reported there was approximately 10 minutes that they had not seen patient. When asked if patient has any areas of pain, he points to his forehead. Denies any other areas of pain. Is able to move all of his extremities. Patient is on Eliquis and Plavix. Related Data Home Medications ?Medication ?Instructions ?Recorded ?Confirmed ?Last Taken ?Type apixaban 5 mg tablet (Eliquis) 5 mg PO BID 08/01/21 01/09/23 Unknown History atorvastatin 40 mg tablet 40 mg PO QHS 08/01/21 01/09/23 Unknown History benztropine 0.5 mg tablet 0.5 mg PO BID 08/01/21 01/09/23 Unknown History clonidine 0.2 mg/24 hr weekly 0.2 patch WEEKLY 08/01/21 01/09/23 01/05/23 History transdermal patch divalproex 500 mg tablet,delayed 500 mg PO DAILY 08/01/21 01/09/23 Unknown History release ezetimibe 10 mg tablet 10 mg QNOON 08/01/21 01/09/23 Unknown History famotidine 20 mg tablet 20 mg PO DAILY 08/01/21 01/09/23 Unknown History haloperidol 5 mg tablet 5 mg PO BID 08/01/21 01/09/23 Unknown History haloperidol 5 mg tablet 5 mg PO Q4H PRN Agitation 08/01/21 01/09/23 Unknown History lorazepam 1 mg tablet 1 mg PO QID 08/01/21 01/09/23 Unknown History metoprolol tartrate 50 mg tablet 50 mg DAILY 08/01/21 01/09/23 Unknown History nifedipine 30 mg tablet,extended 30 mg PO DAILY 08/01/21 01/09/23 Unknown History release 24 hr sertraline 50 mg tablet 75 mg PO DAILY 12/28/21 01/09/23 Unknown History cholecalciferol (vitamin D3) 125 125 mcg PO QNOON 04/01/22 01/09/23 Unknown History mcg (5,000 unit) capsule furosemide 20 mg tablet 20 mg PO DAILY 04/01/22 01/09/23 Unknown History deutetrabenazine 6 mg tablet 6 mg PO BID 01/09/23 01/09/23 Unknown History (Austedo) Allergies Allergy/AdvReac Type Severity Reaction Status Date / Time No Known Allergies Allergy Verified 09/16/24 08:03 Review of Systems Review of Systems: All systems reviewed & are unremarkable except as noted in HPI. All systems reviewed & are unremarkable except as noted in HPI and below PMFSH Past Medical History Medical History Anxiety Hypertension Hyperlipidemia Sepsis Shingles DM (diabetes mellitus) H/O: HTN (hypertension) Catatonic schizophrenia UTI (urinary tract infection) Surgical History Surgical History No history of previous surgery Family History Family History Unknown Caregiver unable to obtain copy of document Social History Social History Social History: The patient is single. Nonsmoker. No drug or alcohol. The patient lives in a skilled nursing. Mother and father . The patient is nonverbal and was previously listed as a full code. Smoking status: Unknown if ever smoked Alcohol intake: unknown Substance use: unknown Gender identity (if verbalized by the patient): Male Spiritual care concerns: No Exam Narrative: GENERAL: Chronically ill-appearing, thin non-toxic, in no acute distress. HEAD: Normocephalic, small hematoma formation to R frontal region. Very superficial abrasion to forehead between eyebrows. No active bleeding. No deeper lacerations. EYES: PERRL/EOMI, conjunctiva clear, no nystagmus NECK: No appreciable midline spinal tenderness. RESPIRATORY: Airway patent, respirations nonlabored. Clear to auscultation bilaterally, no rales, rhonchi, wheezing. CARDIOVASCULAR: Regular rate and rhythm without murmurs, rubs, or gallops. MUSCULOSKELETAL: Moves all extremities. No gross deformities. SKIN: Warm, dry, normal color. NEURO: Alert, nonverbal but will shake head yes/no to some questions. Follows some commands. Able to track movements. Able to move all extremities with assistance in getting started with movements, otherwise patient does lay somewhat stiffly in bed, consistent with known catatonic behavior. Steady gait. No ataxic movements. PSYCHIATRIC: Flat affect. Limited emotions. Course Vital Signs Vital signs: Vital Signs Temperature 97.4 F L 11/11/24 20:19 Pulse Rate 87 11/11/24 20:19 Respiratory Rate 17 11/11/24 20:19 Blood Pressure 115/81 11/11/24 20:19 Pulse Oximetry 96 11/11/24 20:19 Oxygen Delivery Room Air 11/11/24 20:19 Temperature 97.4 F L 11/11/24 20:19 Pulse Rate 99 11/11/24 22:46 Respiratory Rate 24 H 11/11/24 22:46 Blood Pressure 145/91 H 11/11/24 22:46 Pulse Oximetry 96 11/11/24 22:46 Oxygen Delivery Room Air 11/11/24 20:19 MDM - Fall MDM Narrative Medical decision making narrative: Patient presented to ED status post ground level mechanical fall from skilled nursing. History of catatonic schizophrenia. Vital signs are stable upon arrival. Patient neurologically intact. He is exhibiting symptoms of catatonia, which is well documented to be chronic for him. I do not appreciate any focal neurologic deficits. Laceration to forehead very superficial, cleaned, does not require repair. CT brain and cervical spine were obtained and without traumatic findings. X-rays of hip/pelvis and chest were also without acute traumatic findings. X-ray of chest showed possible atelectasis versus pneumonia. There is no report of recent URI symptoms, cough. Patient has been afebrile here, has not exhibited a cough or respiratory complaints. Low suspicion for pneumonia at this time. Patient is safe for D/C back to skilled nursing. Given return precautions. Discharged in stable condition. Patient did become slightly agitated toward the end of his ED stay. On his skilled nursing paperwork, he is prescribed Zyprexa 5 mg PRN for agitation. He was given a dose of this in the ED. Medical Records Attestation: I reviewed the patient's medical records. Imaging Data Attestation: I personally reviewed and interpreted this imaging study as follows: Radiologist's impression: ITS Impressions Chest X-Ray 11/11/24 20:54 IMPRESSION: Subsegmental atelectasis versus focal pneumonia in the left lung base. Hip/Pelvis X-Ray 11/11/24 20:58 IMPRESSION: No acute osseous abnormality of the bilateral hips and pelvis. Bilateral moderate hip osteoarthritic changes. Head CT 11/11/24 21:13 IMPRESSION: No acute intracranial findings. Cervical Spine CT 11/11/24 21:28 IMPRESSION: No acute osseous abnormality cervical spine. Multilevel degenerative disc disease. Discharge Plan Discharge Clinical Impression: Catatonic schizophrenia, Superficial laceration of face Closed head injury Qualifiers: Encounter type: initial encounter Qualified Code(s): S09.90XA - Unspecified injury of head, initial encounter Patient Disposition: NH [facility]/Asst Living Condition: Stable Instructions: Antibiotic Form, Laceration (ED), Head Injury (ED) Additional Instructions: Patient's imaging here did not show any evidence of traumatic findings. Continue home medications. Continue Tylenol, ice as needed for pain. Follow-up with primary care doctor for further evaluation. Return for new or worsening concerns. Patient Language: Kinyarwanda Prescriptions: No Action atorvastatin 40 mg tablet 40 mg PO QHS Rx Instructions: at bedtime benztropine 0.5 mg tablet 0.5 mg PO BID clonidine 0.2 mg/24 hr patch weekly 0.2 patch WEEKLY Rx Instructions: change on friday divalproex 500 mg tablet,delayed release (DR/EC) 500 mg PO DAILY ezetimibe 10 mg tablet 10 mg QNOON famotidine 20 mg tablet 20 mg PO DAILY metoprolol tartrate 50 mg tablet 50 mg DAILY nifedipine 30 mg tablet extended release 24 hr 30 mg PO DAILY Eliquis 5 mg tablet 5 mg PO BID haloperidol 5 mg tablet 5 mg PO BID lorazepam 1 mg tablet 1 mg PO QID haloperidol 5 mg tablet 5 mg PO Q4H PRN (Reason: Agitation) sertraline 50 mg Tablet 75 mg PO DAILY Austedo 6 mg Tablet 6 mg PO BID furosemide 20 mg Tablet 20 mg PO DAILY cholecalciferol (vitamin D3) 125 mcg (5,000 unit) Capsule 125 mcg PO QNOON Follow-up/Referrals: UNKNOWN,DOCTOR [Primary Care Provider] - Time of Disposition: 22:06
--- OUTSIDE RECORDS SUMMARY | 2024-11-11 21:14 | XMS_ITS | Clinical Summary ---
Author Organization [facility] Address [address] [place] [address] Care Team Providers Care Power Distribution Engineer Name Role Phone Unavailable Primary Care [...]
[2024-11-11] MEDS: OLANZapine 5 MG TABLET PO (22:21)
[2024-11-11 22:46] VITALS: BP 145/91; PULSE 99; RESP 24; O2SAT 96
== END 2024-11-11 22:49 ==
PROVIDERS: Emergency Provider Physician Assistant
DX: S01.81XA Laceration without foreign body of other part of head, initial encounter (principal); F20.2 Catatonic schizophrenia; I10 Essential (primary) hypertension; E11.9 Type 2 diabetes mellitus without complications; E78.5 Hyperlipidemia, unspecified; F41.9 Anxiety disorder, unspecified; Z87.440 Personal history of urinary (tract) infections; Z79.899 Other long term (current) drug therapy; Z79.01 Long term (current) use of anticoagulants; M50.31 Other cervical disc degeneration, high cervical region; M16.0 Bilateral primary osteoarthritis of hip; R91.8 Other nonspecific abnormal finding of lung field; W19.XXXA Unspecified fall, initial encounter
CPT/HCPCS: 70450; 71045; 72125; 73521; 99284; A9270

== ENCOUNTER 2025-01-20 14:27 | Emergency (ER) | payer MEDICARE, MEDICAID, SELFPAY ==
--- NOTE | ~2025-01-20 | CT_ITS ---
History: Fall PROCEDURE: CT head without contrast. COMPARISON: 11/11/2024 TECHNIQUE: Axial imaging of the head performed from the skull base to the vertex without IV contrast. Sagittal a nd coronal reformations obtained. DLP: 605 mGy-cm FINDINGS: The ventricles are normal in size, shape and position. There is no mass, mass effect or midline shift. There is no abnormal extra-axial fluid collection or intracranial hemorrhage. Visualized paranasal sinuses are clear. The mastoid air cells are well aerated. No acute displaced fractures within the overlying cranium. Redemonstration of multiple punctate calcifications in the scalp, unchanged from prior. Impression: No acute intracranial hemorrhage or suspicious mass effect. Reviewed, dictated and finalized at location A. Impression: No acute intracranial hemorrhage or suspicious mass effect.
[2025-01-20 14:31] VITALS: BP 95/69; PULSE 75; RESP 17; TEMP 36.5; O2SAT 97
[2025-01-20] MEDS: SODIUM CHLORIDE 0.9% IV 1,000 ML 999 ML IV CONT (16:04)
[2025-01-20 16:12] LABS: Hematocrit 35.9 % (42.0-52.0); Hemoglobin 11.3 g/dL (14.0-18.0); Immature Granulocyte Percent A 0.7 % (0-0.5); Lymphocytes Absolute Auto 1.65 K/mm3 (0.9-3.2); Mean Corpuscular HGB Conc 31.5 g/dl (32-36); Mean Corpuscular Hemoglobin 28.2 pg (26-34); Mean Corpuscular Volume 89.5 fl (80-100); Nucleated Red Blood Cells Absolute Auto 0.000 K/mm3 (0.0-0.012); Nucleated Red Blood Cells Perc 0.0 % (0.0-0.2); Platelet Count Result 245 k/mm3 (150-375); Red Blood Count 4.01 M/mm3 (4.6-6.20); White Blood Count 6.1 K/mm3 (4.5-10.0)
[2025-01-20 16:31] LABS: Alanine Aminotransferase 17 U/L (6-50); Albumin Level 3.3 g/dL (3.5-5.1); Alkaline Phosphatase 65 U/L (38-126); Anion Gap 8 mmol/L (4-12); Aspartate Amino Transferase 21 U/L (17-59); Bilirubin,Total 0.3 mg/dL (0.2-1.3); Blood Urea Nitrogen 14 mg/dL (9-20); Calcium 8.9 mg/dL (8.4-10.2); Carbon Dioxide 28 mmol/L (22-30); Chloride 103 mmol/L (98-107); Estimated CRCL calculation 84 ml/min; Estimated Glomerular Filt Rate > 60; Glucose 96 mg/dL (65-110); Potassium 4.3 mmol/L (3.4-5.0); Sodium 139 mmol/L (137-145); Total Protein 6.6 g/dL (6.3-8.2)
--- OUTSIDE RECORDS SUMMARY | 2025-01-20 16:44 | XMS_ITS | Clinical Summary ---
Author Organization [facility] Address [address] [place] [address] Care Team Providers Care Configuration Management Architect Name Role Phone Unavailable Primary Care Provider [...] Virus (HCV) Screening 1961 TdaP Immunization 1961 Cologuard 2006 Colonoscopy 2006 Colorectal Cancer Screening 2006 Immunochemical Fecal Occult Blood 2006 Pneumococcal Immunization (5 0+ years) (1 of 1 - PCV) 2011 Zoster Immunization (1 of 2) 2011 SARS-COV-2 Immunization (2 - season) 2024 04/20/2021 Influenza Immunization (#1) 2025 Respiratory Syncytial Virus (RSV) Immunization (Adult) (1 - 1-dose 75+ series) 01/18/2036 Hepatitis B Immunization Aged Out No longer eligible based on patient's age to complete this topic Human Papillomavirus (HPV) Immunization Aged Out No longer eligible b ased on patient's age to complete this topic Meningococcal Immunization (ACWY) Aged Out No longer eligible based on patient's age to complete this topic Rotavirus Immunization Aged Out No lo nger eligible based on patient's age to complete this topic
--- NOTE | 2025-01-20 17:14 | ED_ITS ---
HPI - General Adult General Chief complaint: Fall Stated complaint: fall Time Seen by Provider: 01/20/25 15:13 History of Present Illness HPI narrative: Patient is a 65-year-old male who presents ER due to fall at his facility. Patient has catatonic schizophrenia and is a very poor historian. He denies any pain but will not answer orientation questions. He has old bruising to the face. Facility is concerned he may have internal bleeding due to his blood thinning agent. Related Data Home Medications ?Medication ?Instructions ?Recorded ?Confirmed ?Last Taken ?Type apixaban 5 mg tablet (Eliquis) 5 mg PO BID 08/01/21 01/09/23 Unknown History atorvastatin 40 mg tablet 40 mg PO QHS 08/01/21 01/09/23 Unknown History benztropine 0.5 mg tablet 0.5 mg PO BID 08/01/21 01/09/23 Unknown History clonidine 0.2 mg/24 hr weekly 0.2 patch WEEKLY 08/01/21 01/09/23 01/05/23 History transdermal patch divalproex 500 mg tablet,delayed 500 mg PO DAILY 08/01/21 01/09/23 Unknown History release ezetimibe 10 mg tablet 10 mg QNOON 08/01/21 01/09/23 Unknown History famotidine 20 mg tablet 20 mg PO DAILY 08/01/21 01/09/23 Unknown History haloperidol 5 mg tablet 5 mg PO BID 08/01/21 01/09/23 Unknown History haloperidol 5 mg tablet 5 mg PO Q4H PRN Agitation 08/01/21 01/09/23 Unknown History lorazepam 1 mg tablet 1 mg PO QID 08/01/21 01/09/23 Unknown History metoprolol tartrate 50 mg tablet 50 mg DAILY 08/01/21 01/09/23 Unknown History nifedipine 30 mg tablet,extended 30 mg PO DAILY 08/01/21 01/09/23 Unknown History release 24 hr sertraline 50 mg tablet 75 mg PO DAILY 12/28/21 01/09/23 Unknown History cholecalciferol (vitamin D3) 125 125 mcg PO QNOON 04/01/22 01/09/23 Unknown History mcg (5,000 unit) capsule furosemide 20 mg tablet 20 mg PO DAILY 04/01/22 01/09/23 Unknown History deutetrabenazine 6 mg tablet 6 mg PO BID 01/09/23 01/09/23 Unknown History (Austedo) Allergies Allergy/AdvReac Type Severity Reaction Status Date / Time No Known Allergies Allergy Verified 09/16/24 08:03 Review of Systems 2 Review of Systems: ROS unobtainable: Yes unobtainable due to mental status PMFSH Past Medical History Medical History Anxiety Hypertension Hyperlipidemia Sepsis Shingles DM (diabetes mellitus) H/O: HTN (hypertension) Catatonic schizophrenia UTI (urinary tract infection) Surgical History Surgical History No history of previous surgery Family History Family History Unknown Caregiver unable to obtain copy of document Social History Social History Social History: The patient is single. Nonsmoker. No drug or alcohol. The patient lives in a skilled nursing. Mother and father . The patient is nonverbal and was previously listed as a full code. Smoking status: Unknown if ever smoked Alcohol intake: unknown Substance use: unknown Gender identity (if verbalized by the patient): Male Spiritual care concerns: No Exam 2 Narrative: GENERAL: Chronically ill-appearing, well-nourished, and in no acute distress. HEAD: Normocephalic, atraumatic. EYES: PERRL and EOMI. Yellow/purple bruising periorbitally bilaterally. ENT: Mucous membranes moist. CHEST: Clear to auscultation. No respiratory distress. HEART: Regular rate and rhythm. Normal peripheral pulses. ABDOMEN: Soft, nontender, nondistended. EXTREMITIES: Normal range of motion. No edema. SKIN: Warm, dry, no rash. NEURO: Awake alert, will not answer orientation questions but is at neurologic baseline. Course Course Emergency Course: Blood pressure low on arrival. Given 1 L of IV fluid. Blood work unremarkable. CT without acute trauma. Vital Signs Vital signs: Vital Signs Temperature 97.7 F 01/20/25 14:31 Pulse Rate 75 01/20/25 14:31 Respiratory Rate 17 01/20/25 14:31 Blood Pressure 95/69 L 01/20/25 14:31 Pulse Oximetry 97 01/20/25 14:31 Temperature 97.7 F 01/20/25 14:31 Pulse Rate 75 01/20/25 14:31 Respiratory Rate 17 01/20/25 14:31 Blood Pressure 95/69 L 01/20/25 14:31 Pulse Oximetry 97 01/20/25 14:31 Medical Decision Making Vital Signs Vital Signs: Vital Signs Temperature 97.7 F 01/20/25 14:31 Pulse Rate 75 01/20/25 14:31 Respiratory Rate 17 01/20/25 14:31 Blood Pressure 95/69 L 01/20/25 14:31 Pulse Oximetry 97 01/20/25 14:31 Temperature 97.7 F 01/20/25 14:31 Pulse Rate 75 01/20/25 14:31 Respiratory Rate 17 01/20/25 14:31 Blood Pressure 95/69 L 01/20/25 14:31 Pulse Oximetry 97 01/20/25 14:31 Lab Data 01/20/25 16:01 01/20/25 16:01 Labs: Lab Results 01/20/25 Range/Units 16:01 WBC 6.1 (4.5-10.0) K/mm3 RBC 4.01 L (4.6-6.20) M/mm3 Hgb 11.3 L D (14.0-18.0) g/dL Hct 35.9 L (42.0-52.0) % MCV 89.5 (80-100) fl MCH 28.2 (26-34) pg MCHC 31.5 L (32-36) g/dl RDW 15.6 H (11.5-14.5) % Plt Count 245 (150-375) k/mm3 MPV 10.0 (7.4-10.4) fl Immature Gran % (Auto) 0.7 H (0-0.5) % Neut % (Auto) 60.1 (45.5-73.1) % Lymph % (Auto) 27.2 (18.3-44.2) % Hamlin % (Auto) 8.7 H (2.6-8.5) % Eos % (Auto) 2.8 (0-4.4) % Baso % (Auto) 0.5 (0.2-1.2) % Lymph # (Auto) 1.65 (0.9-3.2) K/mm3 Hamlin # (Auto) 0.5 (0.1-0.6) K/mm3 Eos # (Auto) 0.2 (0-0.3) K/mm3 Baso # (Auto) 0.0 (0.0-0.1) K/mm3 Abs Immat Gran (auto) 0.04 H (0.00-0.031) K/mm3 Absolute Neuts (auto) 3.6 (1.3-6.7) K/mm3 Absolute Nucleated RBC 0.000 (0.0-0.012) K/mm3 Nucleated RBC % 0.0 (0.0-0.2) % Sodium 139 (137-145) mmol/L Potassium 4.3 (3.4-5.0) mmol/L Chloride 103 (98-107) mmol/L Carbon Dioxide 28 (22-30) mmol/L Anion Gap 8 (4-12) mmol/L BUN 14 D (9-20) mg/dL Creatinine 0.76 (0.7-1.3) mg/dL Estim Creat Clear Calc 84 ml/min Estimated GFR > 60 (59 - ) Glucose 96 (65-110) mg/dL Calcium 8.9 (8.4-10.2) mg/dL Total Bilirubin 0.3 (0.2-1.3) mg/dL AST 21 (17-59) U/L ALT 17 (6-50) U/L Alkaline Phosphatase 65 (38-126) U/L Total Protein 6.6 (6.3-8.2) g/dL Albumin 3.3 L (3.5-5.1) g/dL Imaging Data Radiologist's impression: ITS Impressions Head CT 01/20/25 16:02 Impression: No acute intracranial hemorrhage or suspicious mass effect. Discharge Plan Discharge Clinical Impression: Bruise of face Patient Disposition: Home Condition: Stable Instructions: Contusion in Adults (ED) Additional Instructions: Return the ER if you have fever 100.4? F, you suffer a new injury, have additional concerns. Patient Language: Upper Sorbian Prescriptions: No Action atorvastatin 40 mg tablet 40 mg PO QHS Rx Instructions: at bedtime benztropine 0.5 mg tablet 0.5 mg PO BID clonidine 0.2 mg/24 hr patch weekly 0.2 patch WEEKLY Rx Instructions: change on friday divalproex 500 mg tablet,delayed release (DR/EC) 500 mg PO DAILY ezetimibe 10 mg tablet 10 mg QNOON famotidine 20 mg tablet 20 mg PO DAILY metoprolol tartrate 50 mg tablet 50 mg DAILY nifedipine 30 mg tablet extended release 24 hr 30 mg PO DAILY Eliquis 5 mg tablet 5 mg PO BID haloperidol 5 mg tablet 5 mg PO BID lorazepam 1 mg tablet 1 mg PO QID haloperidol 5 mg tablet 5 mg PO Q4H PRN (Reason: Agitation) sertraline 50 mg Tablet 75 mg PO DAILY Austedo 6 mg Tablet 6 mg PO BID furosemide 20 mg Tablet 20 mg PO DAILY cholecalciferol (vitamin D3) 125 mcg (5,000 unit) Capsule 125 mcg PO QNOON Follow-up/Referrals: UNKNOWN,DOCTOR [Primary Care Provider] - 1 Week
[2025-01-20 18:29] VITALS: PULSE 77; RESP 18; O2SAT 96
== END 2025-01-20 18:24 ==
PROVIDERS: Emergency Provider Emergency Medicine
DX: S00.83XA Contusion of other part of head, initial encounter (principal); F20.2 Catatonic schizophrenia; I10 Essential (primary) hypertension; E11.9 Type 2 diabetes mellitus without complications; E78.5 Hyperlipidemia, unspecified; Z87.440 Personal history of urinary (tract) infections; Z79.01 Long term (current) use of anticoagulants; Z79.899 Other long term (current) drug therapy; W19.XXXA Unspecified fall, initial encounter
CPT/HCPCS: 36415; 70450; 80053; 85025; 96360; 99284; J7030

== ENCOUNTER 2025-01-26 18:09 | Emergency (ER) | payer MEDICARE, SELFPAY ==
--- NOTE | ~2025-01-26 | CT_ITS ---
EXAMINATION: CT brain wo con DATE: 01/26/2025 19:08 INDICATION: Fall w/ lac . TECHNIQUE: Computed tomography (CT) of the head was performed without intravenous contrast. The mA wa s adjusted according to patient size. Iterative reconstruction technique was employed. The dose-lengt h product was 681.00 mGy-cm. COMPARISON: 01/20/2025. FINDINGS: No acute intracranial hemorrhage or extra-axial fluid collection. No hydrocephalus, mass, or herniation. No acute ischemic infarct. Unremarkable dural venous sinus attenuation. No acute osseous abnormality. Left forehead laceration/contusion. The aerated spaces are clear. Mild atrophy and chronic white matter change. Atherosclerotic intracranial calcification. Bilateral b kala ganglia calcification. IMPRESSION: No acute intracranial process. Reviewed, dictated and finalized at location K.
--- NOTE | ~2025-01-26 | CT_ITS ---
EXAMINATION: CT cervical spine wo con DATE: 01/26/2025 19:08 INDICATION: Fall w/ lac TECHNIQUE: Computed tomography (CT) of the cervical spine was performed without intravenous contrast. Automated exposure control and iterative reconstruction technique were employed. The dose-length pro duct was 681.00 mGy-cm. COMPARISON: 11/11/2024. FINDINGS: Vertebral Body Alignment: Mild reversal of the normal lordosis, centered at C3. Craniocervical and atlantoaxial alignment: Moderate degenerative change. Alignment intact. Osseous structures/fracture: No evidence of a lytic or blastic process in the visualized spine. No e vidence of acute fracture. Cervical soft tissues: The paraspinal soft tissues planes are maintained. Degenerative changes: Degenerative changes, without severe neural foraminal or central canal narrowin g. IMPRESSION: No acute fracture or traumatic malalignment in the cervical spine. Reviewed, dictated and finalized at location K.
[2025-01-26 18:11] VITALS: BP 100/75; PULSE 88; RESP 16; TEMP 36.6; O2SAT 98
--- NOTE | 2025-01-26 18:57 | ED_ITS ---
HPI - General Adult General Chief complaint: Fall <Mariano Solomon MD - Last Filed: 01/26/25 19:01> Stated complaint: fall <Mariano Solomon MD - Last Filed: 01/26/25 19:01> Time Seen by Provider: 01/26/25 18:32 <Mariano Solomon MD - Last Filed: 01/26/25 19:01> History of Present Illness HPI narrative: This is a 65-year-old male presenting for ground level fall. 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 Per EMS he fell from his chair and struck his head. Patient is on Eliquis. Patient can move for 4 extremities to command although function is severely limited. <Mariano Solomon MD - Last Filed: 01/26/25 19:01> Related Data Home medications: Home Medications ?Medication ?Instructions ?Recorded ?Confirmed ?Last Taken ?Type apixaban 5 mg tablet (Eliquis) 5 mg PO BID 08/01/21 01/09/23 Unknown History atorvastatin 40 mg tablet 40 mg PO QHS 08/01/21 01/09/23 Unknown History benztropine 0.5 mg tablet 0.5 mg PO BID 08/01/21 01/09/23 Unknown History clonidine 0.2 mg/24 hr weekly 0.2 patch WEEKLY 08/01/21 01/09/23 01/05/23 History transdermal patch divalproex 500 mg tablet,delayed 500 mg PO DAILY 08/01/21 01/09/23 Unknown History release ezetimibe 10 mg tablet 10 mg QNOON 08/01/21 01/09/23 Unknown History famotidine 20 mg tablet 20 mg PO DAILY 08/01/21 01/09/23 Unknown History haloperidol 5 mg tablet 5 mg PO BID 08/01/21 01/09/23 Unknown History haloperidol 5 mg tablet 5 mg PO Q4H PRN Agitation 08/01/21 01/09/23 Unknown History lorazepam 1 mg tablet 1 mg PO QID 08/01/21 01/09/23 Unknown History metoprolol tartrate 50 mg tablet 50 mg DAILY 08/01/21 01/09/23 Unknown History nifedipine 30 mg tablet,extended 30 mg PO DAILY 08/01/21 01/09/23 Unknown History release 24 hr sertraline 50 mg tablet 75 mg PO DAILY 12/28/21 01/09/23 Unknown History cholecalciferol (vitamin D3) 125 125 mcg PO QNOON 04/01/22 01/09/23 Unknown History mcg (5,000 unit) capsule furosemide 20 mg tablet 20 mg PO DAILY 04/01/22 01/09/23 Unknown History deutetrabenazine 6 mg tablet 6 mg PO BID 01/09/23 01/09/23 Unknown History (Austedo) <Mariano Solomon MD - Last Filed: 01/26/25 19:01> Allergies/adverse reactions: Allergies Allergy/AdvReac Type Severity Reaction Status Date / Time No Known Allergies Allergy Verified 01/26/25 20:28 <Mariano Solomon MD - Last Filed: 01/26/25 19:01> [facility] Past Medical History Medical History: Medical History Anxiety Hypertension Hyperlipidemia Sepsis Shingles DM (diabetes mellitus) H/O: HTN (hypertension) Catatonic schizophrenia UTI (urinary tract infection) <Mariano Solomon MD - Last Filed: 01/26/25 19:01> Surgical History Surgical History: Surgical History No history of previous surgery <Mariano Solomon MD - Last Filed: 01/26/25 19:01> Family History Family History: Family History Unknown Caregiver unable to obtain copy of document <Mariano Solomon MD - Last Filed: 01/26/25 19:01> Social History Social History: Social History Social History: The patient is single. Nonsmoker. No drug or alcohol. The patient lives in a longterm. Mother and father . The patient is nonverbal and was previously listed as a full code. Smoking status: Unknown if ever smoked Alcohol intake: unknown Substance use: unknown Gender identity (if verbalized by the patient): Male Spiritual care concerns: No <Mariano Solomon MD - Last Filed: 01/26/25 19:01> Exam Narrative: APPEARANCE: No apparent distress. Head: 2.54 cm laceration over the left eyebrow with active bleeding EYES: EOMI, NOSE: Atraumatic NECK: Trachea midline RESPIRATORY: No increased rate of breathing CARDIOVASCULAR: RRR, ABDOMINAL: Non-distended MUSCULOSKELETAl: No obvious deformities NEURO: Alert, review of EMR shows this is essentially his baseline. Nonverbal. Can weakly move all 4/4 extremities with very limited function. SKIN:: Warm, dry. Normal color PSYCHIATRIC: Catatonic <Mariano Solomon MD - Last Filed: 01/26/25 19:01> Course Course Emergency Course: Patient care signed out by previous provider pending CT scans and discharged assuming unremarkable findings. No intracranial hemorrhage, no acute fractures. Patient re-evaluated with any acute concerns and his laceration was repaired. Bleeding controlled. Patient stable for discharge back to his skilled care facility at this time. [facility] ambulance services arranged. Patient left the department without any further issue. <Arvin Hardin MD - Last Filed: 01/27/25 06:13> Vital Signs Vital signs: Vital Signs Temperature 36.6 C 01/26/25 18:11 Pulse Rate 88 01/26/25 18:11 Respiratory Rate 16 01/26/25 18:11 Blood Pressure 100/75 01/26/25 18:11 Pulse Oximetry 98 01/26/25 18:11 Oxygen Delivery Room Air 01/26/25 18:11 Temperature 36.6 C 01/26/25 22:25 Pulse Rate 79 01/26/25 22:25 Respiratory Rate 18 01/26/25 22:25 Blood Pressure 116/80 01/26/25 22:25 Pulse Oximetry 100 01/26/25 22:25 Oxygen Delivery Room Air 01/26/25 18:11 <Mariano Solomno MD - Last Filed: 01/26/25 19:01> Vital Signs Temperature 36.6 C 01/26/25 18:11 Pulse Rate 88 01/26/25 18:11 Respiratory Rate 16 01/26/25 18:11 Blood Pressure 100/75 01/26/25 18:11 Pulse Oximetry 98 01/26/25 18:11 Oxygen Delivery Room Air 01/26/25 18:11 Temperature 36.6 C 01/26/25 22:25 Pulse Rate 79 01/26/25 22:25 Respiratory Rate 18 01/26/25 22:25 Blood Pressure 116/80 01/26/25 22:25 Pulse Oximetry 100 01/26/25 22:25 Oxygen Delivery Room Air 01/26/25 18:11 <Arvin Hardin MD - Last Filed: 01/27/25 06:13> Procedures Laceration Laceration 1: Date: 01/26/25 <Mariano Solomon MD - Last Filed: 01/26/25 19:01> Side (If applicable): left <Mariano Solomon MD - Last Filed: 01/26/25 19:01> Size (cm): 2.6 <Mariano Solomon MD - Last Filed: 01/26/25 19:01> Description: linear <Mariano Solomon MD - Last Filed: 01/26/25 19:01> Depth: simple, single layer <aMriano Solomon MD - Last Filed: 01/26/25 19:01> Local Anesthetic: bupivacaine 0.25% <Mariano Solomon MD - Last Filed: 01/26/25 19:01> Amount of anesthesia used (mL): 3 <Mariano Solomon MD - Last Filed: 01/26/25 19:01> Pre-repair: wound explored and irrigated <Mariano Solomon MD - Last Filed: 01/26/25 19:01> ====== Skin Level ======: Skin layer closed with: prolene <Mariano Solomon MD - Last Filed: 01/26/25 19:01> Size (cm): 5-0 <Mariano Solomon MD - Last Filed: 01/26/25 19:01> Number of sutures: 6 <Mariano Solomon MD - Last Filed: 01/26/25 19:01> ====== Subcutaneous Layer ======: ====== Muscle Layer ======: ====== Tendon Layer ======: Medical Decision Making Vital Signs Vital Signs: Vital Signs Temperature 36.6 C 01/26/25 18:11 Pulse Rate 88 01/26/25 18:11 Respiratory Rate 16 01/26/25 18:11 Blood Pressure 100/75 01/26/25 18:11 Pulse Oximetry 98 01/26/25 18:11 Oxygen Delivery Room Air 01/26/25 18:11 Temperature 36.6 C 01/26/25 22:25 Pulse Rate 79 01/26/25 22:25 Respiratory Rate 18 01/26/25 22:25 Blood Pressure 116/80 01/26/25 22:25 Pulse Oximetry 100 01/26/25 22:25 Oxygen Delivery Room Air 01/26/25 18:11 <Mariano Solomon MD - Last Filed: 01/26/25 19:01> Vital Signs Temperature 36.6 C 01/26/25 18:11 Pulse Rate 88 01/26/25 18:11 Respiratory Rate 16 01/26/25 18:11 Blood Pressure 100/75 01/26/25 18:11 Pulse Oximetry 98 01/26/25 18:11 Oxygen Delivery Room Air 01/26/25 18:11 Temperature 36.6 C 01/26/25 22:25 Pulse Rate 79 01/26/25 22:25 Respiratory Rate 18 01/26/25 22:25 Blood Pressure 116/80 01/26/25 22:25 Pulse Oximetry 100 01/26/25 22:25 Oxygen Delivery Room Air 01/26/25 18:11 <Arvin Hardin MD - Last Filed: 01/27/25 06:13> Discharge Plan Discharge Clinical Impression: CHI (closed head injury), Catatonic schizophrenia, Forehead laceration <Mariano Solomon MD - Last Filed: 01/26/25 19:01> Patient Disposition: NH Senior Care/Asst Living <Mariano Solomon MD - Last Filed: 01/26/25 19:01> Condition: Stable <Mariano Solomon MD - Last Filed: 01/26/25 19:01> Instructions: Antibiotic Form, Laceration (ED), Head Injury (ED) <Mariano Solomon MD - Last Filed: 01/26/25 19:01> Additional Instructions: Stitches need to be removed in approximately 10 days. follow-up with your primary care provider as needed. Return with any emergent concerns. <Mariano Solomon MD - Last Filed: 01/26/25 19:01> Patient Language: Mauritanian <Mariano Solomon MD - Last Filed: 01/26/25 19:01> Prescriptions: No Action atorvastatin 40 mg tablet 40 mg PO QHS Rx Instructions: at bedtime benztropine 0.5 mg tablet 0.5 mg PO BID clonidine 0.2 mg/24 hr patch weekly 0.2 patch WEEKLY Rx Instructions: change on friday divalproex 500 mg tablet,delayed release (DR/EC) 500 mg PO DAILY ezetimibe 10 mg tablet 10 mg QNOON famotidine 20 mg tablet 20 mg PO DAILY metoprolol tartrate 50 mg tablet 50 mg DAILY nifedipine 30 mg tablet extended release 24 hr 30 mg PO DAILY Eliquis 5 mg tablet 5 mg PO BID haloperidol 5 mg tablet 5 mg PO BID lorazepam 1 mg tablet 1 mg PO QID haloperidol 5 mg tablet 5 mg PO Q4H PRN (Reason: Agitation) sertraline 50 mg Tablet 75 mg PO DAILY Austedo 6 mg Tablet 6 mg PO BID furosemide 20 mg Tablet 20 mg PO DAILY cholecalciferol (vitamin D3) 125 mcg (5,000 unit) Capsule 125 mcg PO QNOON <Mariano Solomon MD - Last Filed: 01/26/25 19:01> Follow-up/Referrals: UNKNOWN,DOCTOR [Primary Care Provider] - <Mariano Solomon MD - Last Filed: 01/26/25 19:01> Stand Alone Forms: Usp Discharge <Mariano Solomon MD - Last Filed: 01/26/25 19:01> Time of Disposition: 20:05 <Mariano Solomon MD - Last Filed: 01/26/25 19:01> 20:05 <Arvin Hardin MD - Last Filed: 01/27/25 06:13>
--- OUTSIDE RECORDS SUMMARY | 2025-01-26 19:14 | XMS_ITS | Clinical Summary ---
Author Organization [facility] Address [address] [place] [address] Care Team Providers Care Chinese Teacher Name Role Phone Unavailable Primary Care Provider [...]
--- OUTSIDE RECORDS SUMMARY | 2025-01-26 19:14 | XMS_ITS | Clinical Summary ---
Author Organization [facility] Address [address] [place] [address] Phone Care Team Providers Care Home Economist Consumer Service Name Role Phone Thompson Hare MD Primary [...] catatonic, chronic with acute exa cerbation 08/24/2023 Social History Tobacco Use Types Packs/Day Years Used Date Smoking Tobacco: Unknown Tobacco Cessation:Counseling Given: Not Answered Sex and Gender Information Value Date Recorded [...] 5:13 AM CDT Height 172.7 cm (5' 8) 08/24/2023 10:02 PM CDT Body Mass Index 29.12 08/24/2023 10:02 PM CDT Plan of Treatment Health Maintenance Due Date Last Done Comments DTAP/TDAP/TD VACCINES (1 - Tdap) 01/18/1980 COLORECTAL SCREENING 2006 Colorectal Cancer Screening 2006 FIT-DNA Q 3 years 2006 FIT/FOBT Q 1 year 2006 Flex Sig/CT Colonography Q 5 years 2006 ZOSTER VACCINE (1 of 2) 2011 INFLUENZA VACCINE (#1) 2025 RSV VACCINE (60+ or ) (1 - 1-dose 75+ series) 01/18/2036 Insurance [place]ID [place] Member Subscriber Plan / Payer (Ef fective 2023-Present) Name:Janice Dumont Relation to Subscriber:Self Name:Janice Dumont Payer ID:Not on file Group ID:Not on file Type:Medicaid Address: [address] [employer] [facility] Advance Directives For more information, please contact: [phone] * Full Code (Latest Code Status on File) Date Activated Date Inactivated Comments 08/24/2023 11:35 PM 09/02/2023 6:16 PM Care Teams Home Economist Consumer Service Relationship Specialty Start Date End Date Thompson Hare MD NO ADDRESS ON FILE PCP - General Internal Medicine 08/25/23
--- NOTE | 2025-01-26 21:22 | PC.NURSE ---
This RN tried to call [facility] with no answer.
[2025-01-26 21:46] VITALS: BP 116/80; PULSE 79; RESP 18; O2SAT 100
--- NOTE | 2025-01-26 22:21 | PC.NURSE ---
This RN spoke with Jackie HEWITT at [facility] and gave report about pts arrival
[2025-01-26 22:25] VITALS: BP 116/80; PULSE 79; RESP 18; TEMP 36.6; O2SAT 100
== END 2025-01-26 22:28 ==
PROVIDERS: Emergency Provider Emergency Medicine
DX: S09.90XA Unspecified injury of head, initial encounter (principal); S01.81XA Laceration without foreign body of other part of head, initial encounter; W07.XXXA Fall from chair, initial encounter; F20.2 Catatonic schizophrenia; Z79.01 Long term (current) use of anticoagulants; I10 Essential (primary) hypertension; E78.5 Hyperlipidemia, unspecified; E11.9 Type 2 diabetes mellitus without complications; F41.9 Anxiety disorder, unspecified
CPT/HCPCS: 12011; 70450; 72125; 99284

== ENCOUNTER 2025-04-22 19:56 | Emergency (ER) | payer MEDICARE, SELFPAY ==
--- NOTE | ~2025-04-22 | XR_ITS ---
XR chest 1V 04/22/2025 21:46 Indication: Status post fall. Chest pain. Procedure: AP view of the chest Comparison: Comparison to multiple prior studies sequentially, with oldest reviewed study dated 04/08/2023. Findings: Borderline heart size. Left basilar infiltrates appear chronic, most likely atelectasis/scarring. Mildly elevated left diaphragm. No pleural effusion, edema or pneumothorax. No acute osseous abnormality. Impression: 1: Chronic left basilar infiltrates, most likely atelectasis/scarring. Reviewed, dictated and finalized at location O. FEEDER Impression: 1: Chronic left basilar infiltrates, most likely atelectasis/scarring.
--- NOTE | ~2025-04-22 | XR_ITS ---
XR pelvis 1-2V 04/22/2025 21:46 Indication: Status post fall. Procedure: AP pelvis Comparison: 11/11/2024 Findings: Moderate osteoarthritis of the left hip. No acute fracture or traumatic malalignment. Pelvic rings intact. Sacral foramen are symmetric. No focal soft tissue abnormality. Impression: 1: Moderate osteoarthritis of the left hip. Reviewed, dictated and finalized at location O. TY GROOVING MACHINE OPERATOR Impression: 1: Moderate osteoarthritis of the left hip.
--- NOTE | ~2025-04-22 | CT_ITS ---
CT HEAD NON-CONTRAST CT C-SPINE Clinical History: fall Comparison: CT brain and C-spine 01/26/2025 Technique: Unenhanced axial images skull base to vertex. Coronal, sagittal reformats. Axial images thoracic inlet to skull base. Sagittal and coronal reformats. CT images acquired with automatic exposure control for dose reduction DLP: 662 mGy-cm Findings: Head: Sulci, ventricles: Unremarkable. No intracerebral hemorrhage. No evidence acute territorial infarct. No mass effect, midline shift, intra-/extra-axial fluid collection. Bony calvarium intact. Visualized paranasal sinuses: Clear. Mastoid air cells: Clear. C-spine: No acute fracture or listhesis. Vertebral bodies normal height and alignment. Mild degenerative changes. Disc spaces maintained. Prevertebral soft tissues within normal limits. Visualized lung apices: Clear. Visualized thyroid: Unremarkable. No enlarged cervical nodes. IMPRESSION: HEAD: 1. No acute intracranial findings. C-SPINE: 1. No acute fracture. Reviewed, dictated and finalized at location R. /AIDS CARE NURSE IMPRESSION: HEAD: 1. No acute intracranial findings. C-SPINE: 1. No acute fracture.
[2025-04-22 20:02] VITALS: BP 106/75; PULSE 83; RESP 24; TEMP 36.6; O2SAT 96
--- NOTE | 2025-04-22 20:10 | ED.GENADULT ---
HPI - General Adult General Chief complaint: Fall Stated complaint: Fall; hit head on thinners Time Seen by Provider: 04/22/25 20:07 History of Present Illness HPI narrative: Patient is a 65-year-old male arriving via EMS from SNF presenting after a witnessed ground level fall. Patient is A&O x3 but demonstrates variable cognitive function. Patient states that he tripped and sustained a head injury. Med list indicates he is on Eliquis. Patient denies nausea/vomiting, dizziness, headache, neck pain, or any pain anywhere else. Related Data Home Medications ?Medication ?Instructions ?Recorded ?Confirmed ?Last Taken ?Type apixaban 5 mg tablet (Eliquis) 5 mg PO BID 08/01/21 01/09/23 Unknown History atorvastatin 40 mg tablet 40 mg PO QHS 08/01/21 01/09/23 Unknown History benztropine 0.5 mg tablet 0.5 mg PO BID 08/01/21 01/09/23 Unknown History clonidine 0.2 mg/24 hr weekly 0.2 patch WEEKLY 08/01/21 01/09/23 01/05/23 History transdermal patch divalproex 500 mg tablet,delayed 500 mg PO DAILY 08/01/21 01/09/23 Unknown History release ezetimibe 10 mg tablet 10 mg QNOON 08/01/21 01/09/23 Unknown History famotidine 20 mg tablet 20 mg PO DAILY 08/01/21 01/09/23 Unknown History haloperidol 5 mg tablet 5 mg PO BID 08/01/21 01/09/23 Unknown History haloperidol 5 mg tablet 5 mg PO Q4H PRN Agitation 08/01/21 01/09/23 Unknown History lorazepam 1 mg tablet 1 mg PO QID 08/01/21 01/09/23 Unknown History metoprolol tartrate 50 mg tablet 50 mg DAILY 08/01/21 01/09/23 Unknown History nifedipine 30 mg tablet,extended 30 mg PO DAILY 08/01/21 01/09/23 Unknown History release 24 hr sertraline 50 mg tablet 75 mg PO DAILY 12/28/21 01/09/23 Unknown History cholecalciferol (vitamin D3) 125 125 mcg PO QNOON 04/01/22 01/09/23 Unknown History mcg (5,000 unit) capsule furosemide 20 mg tablet 20 mg PO DAILY 04/01/22 01/09/23 Unknown History deutetrabenazine 6 mg tablet 6 mg PO BID 01/09/23 01/09/23 Unknown History (Austedo) Allergies Allergy/AdvReac Type Severity Reaction Status Date / Time No Known Allergies Allergy Verified 01/26/25 20:28 Review of Systems Review of Systems: All systems reviewed & are unremarkable except as noted in HPI and below PMFSH Past Medical History Medical History Anxiety Hypertension Hyperlipidemia Sepsis Shingles DM (diabetes mellitus) H/O: HTN (hypertension) Catatonic schizophrenia UTI (urinary tract infection) Surgical History Surgical History No history of previous surgery Family History Family History Unknown Caregiver unable to obtain copy of document Social History Social History Social History: The patient is single. Nonsmoker. No drug or alcohol. The patient lives in a residential. Mother and father . The patient is nonverbal and was previously listed as a full code. Alcohol intake: unknown Substance use: unknown Gender identity (if verbalized by the patient): Male Spiritual care concerns: No Exam Narrative: GENERAL: Frail appearing, well-nourished, non-toxic, in no acute distress. HEAD:Small [id number] hematoma without abrasion or laceration to back left side of head.. EYES: PERRL/EOMI, conjunctivae clear bilaterally. No nystagmus. NOSE: Normal, no drainage EARS:TMS clear, with good light reflex. No erythema or bulging. THROAT: Pharynx clear, no exudate. MMs moist. NECK: Supple. No adenopathy, no masses. RESPIRATORY: Airway patent, respirations nonlabored. Clear to auscultation bilaterally, no rales, rhonchi, wheezing. CARDIOVASCULAR: Regular rate and rhythm without murmurs, rubs, or gallops. Peripheral pulses 2+ and equal bilaterally. ABDOMINAL: Soft, nontender, nondistended, no hepatosplenomegaly. Normoactive BS. MUSCULOSKELETAL: Moves all extremities. L TTP. No edema. No calf tenderness. SKIN: Warm, dry, normal color. No rashes. NEURO: A&O X3. Speech clear. Follows some commands. Left sided strength weaker than right side. CN II-XII intact. Sensation grossly intact. [id number] testing intact bilaterally. No pronator drift. PSYCHIATRIC: Happy mood and affect. Mild cognitive delay. Course Vital Signs Vital signs: Vital Signs Temperature 98 F 04/22/25 20:02 Pulse Rate 83 04/22/25 20:02 Respiratory Rate 24 H 04/22/25 20:02 Blood Pressure 106/75 04/22/25 20:02 Pulse Oximetry 96 04/22/25 20:02 Oxygen Delivery Room Air 04/22/25 20:02 Temperature 98 F 04/22/25 20:02 Pulse Rate 83 04/22/25 20:02 Respiratory Rate 18 04/23/25 00:49 Blood Pressure 112/79 04/23/25 00:49 Pulse Oximetry 98 04/23/25 00:49 Oxygen Delivery Room Air 04/22/25 20:02 Medical Decision Making MDM Narrative Medical decision making narrative: Patient is a 65-year-old male arriving via EMS from SNF presenting after a witnessed ground level fall. Patient is A&O x3 but demonstrates variable cognitive function. Patient states that he tripped and sustained a head injury. Med list indicates he is on Eliquis. Patient denies nausea/vomiting, dizziness, headache, neck pain, or any pain anywhere else. CT head and neck demonstrated no acute abnormalities. CXR demonstrated no acute cardiopulmonary disease. CT pelvis showed moderate arthritis of left hip. Lab work WNL. Vitals remained stable throughout the visit. Traumatic injury ruled out. Discharged back to residential. Medical Records Medical records reviewed: Yes I reviewed the external patient's medical records. Vital Signs Vital Signs: Vital Signs Temperature 98 F 04/22/25 20:02 Pulse Rate 83 04/22/25 20:02 Respiratory Rate 24 H 04/22/25 20:02 Blood Pressure 106/75 04/22/25 20:02 Pulse Oximetry 96 04/22/25 20:02 Oxygen Delivery Room Air 04/22/25 20:02 Temperature 98 F 04/22/25 20:02 Pulse Rate 83 04/22/25 20:02 Respiratory Rate 18 04/23/25 00:49 Blood Pressure 112/79 04/23/25 00:49 Pulse Oximetry 98 04/23/25 00:49 Oxygen Delivery Room Air 04/22/25 20:02 Lab Data Lab results reviewed: Yes I reviewed the patient's lab results. 04/22/25 22:46 04/22/25 22:46 Labs: Lab Results 04/22/25 04/23/25 Range/Units 22:46 00:16 WBC 8.9 (4.5-10.0) K/mm3 RBC 3.88 L (4.6-6.20) M/mm3 Hgb 10.9 L (14.0-18.0) g/dL Hct 35.1 L (42.0-52.0) % MCV 90.5 (80-100) fl MCH 28.1 (26-34) pg MCHC 31.1 L (32-36) g/dl RDW 15.2 H (11.5-14.5) % Plt Count 214 (150-375) k/mm3 MPV 10.8 H (7.4-10.4) fl Immature Gran % (Auto) 0.2 (0-0.5) % Neut % (Auto) 58.2 (45.5-73.1) % Lymph % (Auto) 31.8 (18.3-44.2) % [place] % (Auto) 9.2 H (2.6-8.5) % Eos % (Auto) 0.2 (0-4.4) % Baso % (Auto) 0.4 (0.2-1.2) % Lymph # (Auto) 2.84 (0.9-3.2) K/mm3 [place] # (Auto) 0.8 H (0.1-0.6) K/mm3 Eos # (Auto) 0.0 (0-0.3) K/mm3 Baso # (Auto) 0.0 (0.0-0.1) K/mm3 Abs Immat Gran (auto) 0.02 (0.00-0.031) K/mm3 Absolute Neuts (auto) 5.2 (1.3-6.7) K/mm3 Absolute Nucleated RBC 0.000 (0.0-0.012) K/mm3 Nucleated RBC % 0.0 (0.0-0.2) % Sodium 136 L (137-145) mmol/L Potassium 3.9 (3.4-5.0) mmol/L Chloride 100 (98-107) mmol/L Carbon Dioxide 28 (22-30) mmol/L Anion Gap 8 (4-12) mmol/L BUN 25 H D (9-20) mg/dL Creatinine 0.89 (0.7-1.3) mg/dL Estim Creat Clear Calc 70 ml/min Estimated GFR > 60 (59 - ) Glucose 74 (65-110) mg/dL Calcium 8.8 (8.4-10.2) mg/dL Total Bilirubin 0.4 (0.2-1.3) mg/dL AST 38 (17-59) U/L ALT 26 (6-50) U/L Alkaline Phosphatase 69 (38-126) U/L Total Protein 6.7 (6.3-8.2) g/dL Albumin 3.3 L (3.5-5.1) g/dL Urine Color Yellow (Yellow) Urine Appearance Clear (Clear) Urine pH 6.5 (5.0-9.0) Ur Specific [place] 1.017 (1.001-1.035) Urine Protein Negative (Negative) mg/dL Urine Glucose (UA) Negative (Negative) mg/dL Urine Ketones Negative (Negative) mg/dL Ur Blood (Man) Negative (Negative) Urine Nitrate Negative (Negative) Urine Bilirubin Negative (Negative) Urine Urobilinogen 1.0 (<2.0) mg/dL Leukocyte Esterase Rfl Trace H (Negative) BERNICE/UL Urine RBC 0-2 (0-2) /hpf Urine WBC 0-5 (0-3) /hpf Ur Squamous Epith Cells None seen (Few) /hpf Urine Bacteria None seen /hpf Urine Casts 0-2 Imaging Data Attestation: I personally reviewed and interpreted this imaging study as follows: Radiologist's impression: ITS Impressions Pelvis X-Ray 04/22/25 21:57 Impression: 1: Moderate osteoarthritis of the left hip. Chest X-Ray 04/22/25 21:59 Impression: 1: Chronic left basilar infiltrates, most likely atelectasis/scarring. CT head no acute intracranial abnormality. CT C-spine no acute C-spine findings. ECG Data EKG #1: ECG completion date: 04/22/26 ECG completion time: 22:55 EKG Interpretation: normal rate, sinus rhythm and no acute changes Discharge Plan Discharge Clinical Impression: Fall Patient Disposition: NH Group Home/Asst Living Condition: Stable Instructions: Fall Prevention (ED) Additional Instructions: Return to the emergency department if you experience fever, chest pain, shortness of breath, abdominal pain with nausea and vomiting, weakness, numbness/tingling, or any other symptoms that are concerning to you. Follow up with primary care doctor. Patient Language: Georgian Prescriptions: No Action atorvastatin 40 mg tablet 40 mg PO QHS Rx Instructions: at bedtime benztropine 0.5 mg tablet 0.5 mg PO BID clonidine 0.2 mg/24 hr patch weekly 0.2 patch WEEKLY Rx Instructions: change on friday divalproex 500 mg tablet,delayed release (DR/EC) 500 mg PO DAILY ezetimibe 10 mg tablet 10 mg QNOON famotidine 20 mg tablet 20 mg PO DAILY metoprolol tartrate 50 mg tablet 50 mg DAILY nifedipine 30 mg tablet extended release 24 hr 30 mg PO DAILY Eliquis 5 mg tablet 5 mg PO BID haloperidol 5 mg tablet 5 mg PO BID lorazepam 1 mg tablet 1 mg PO QID haloperidol 5 mg tablet 5 mg PO Q4H PRN (Reason: Agitation) sertraline 50 mg Tablet 75 mg PO DAILY Austedo 6 mg Tablet 6 mg PO BID furosemide 20 mg Tablet 20 mg PO DAILY cholecalciferol (vitamin D3) 125 mcg (5,000 unit) Capsule 125 mcg PO QNOON Follow-up/Referrals: UNKNOWN,DOCTOR [Non-Staff]
--- NOTE | 2025-04-22 21:33 | ECG_ITS ---
Test Date: 2025-04-22 22:55:11 Measurements Intervals Trenary Rate: 73 P: 65 MN: 154 QRS: 20 QRSD: 85 T: 77 QT: 397 QTc: 440 Interpretive Statements SINUS RHYTHM LOW QRS VOLTAGE IN PRECORDIAL LEADS [QRS DEFLECTION < 1.0 mV IN CHEST LEADS] MODERATE ST AND T-WAVE ABNORMALITY, CONSIDER ANTERIOR ISCHEMIA [-0.1+ mV T-WAVE IN V3/V4] ABNORMAL ECG Compared to ECG 05/05/2024 19:50:59 Low QRS voltage now present T-wave abnormality still present Possible ischemia still present Electronically Signed On 04-23-2025 08:31:45 INSURANCE VERIFY REP by Jeremy Schuster M.D.
[2025-04-22 22:51] LABS: Hematocrit 35.1 % (42.0-52.0); Hemoglobin 10.9 g/dL (14.0-18.0); Immature Granulocyte Percent A 0.2 % (0-0.5); Lymphocytes Absolute Auto 2.84 K/mm3 (0.9-3.2); Mean Corpuscular HGB Conc 31.1 g/dl (32-36); Mean Corpuscular Hemoglobin 28.1 pg (26-34); Mean Corpuscular Volume 90.5 fl (80-100); Nucleated Red Blood Cells Absolute Auto 0.000 K/mm3 (0.0-0.012); Nucleated Red Blood Cells Perc 0.0 % (0.0-0.2); Platelet Count Result 214 k/mm3 (150-375); Red Blood Count 3.88 M/mm3 (4.6-6.20); White Blood Count 8.9 K/mm3 (4.5-10.0)
[2025-04-22 23:06] LABS: Alanine Aminotransferase 26 U/L (6-50); Albumin Level 3.3 g/dL (3.5-5.1); Alkaline Phosphatase 69 U/L (38-126); Anion Gap 8 mmol/L (4-12); Aspartate Amino Transferase 38 U/L (17-59); Bilirubin,Total 0.4 mg/dL (0.2-1.3); Blood Urea Nitrogen 25 mg/dL (9-20); Calcium 8.8 mg/dL (8.4-10.2); Carbon Dioxide 28 mmol/L (22-30); Chloride 100 mmol/L (98-107); Estimated CRCL calculation 70 ml/min; Estimated Glomerular Filt Rate > 60; Glucose 74 mg/dL (65-110); Potassium 3.9 mmol/L (3.4-5.0); Sodium 136 mmol/L (137-145); Total Protein 6.7 g/dL (6.3-8.2)
[2025-04-23 00:29] LABS: Add Urine Microscopic? YES; Appearance Urine Clear (Clear); Glucose Urine UA Negative (Negative); Leukocyte Esterase Ur Trace LEU/UL (Negative); Nitrate Urine Negative (Negative); Non Pathogenic Casts 0-2; Specific Grav Ur 1.017 (1.001-1.035)
[2025-04-23 00:49] VITALS: BP 112/79; RESP 18; O2SAT 98
== END 2025-04-23 05:51 ==
DX: S00.03XA Contusion of scalp, initial encounter (principal); I10 Essential (primary) hypertension; E78.5 Hyperlipidemia, unspecified; E11.9 Type 2 diabetes mellitus without complications; F20.2 Catatonic schizophrenia; F41.9 Anxiety disorder, unspecified; Z87.440 Personal history of urinary (tract) infections; M16.12 Unilateral primary osteoarthritis, left hip; R94.31 Abnormal electrocardiogram [ECG] [EKG]; Z79.899 Other long term (current) drug therapy; Z79.01 Long term (current) use of anticoagulants; W01.0XXA Fall on same level from slipping, tripping and stumbling without subsequent striking against object, initial encounter
CPT/HCPCS: 36415; 70450; 71045; 72125; 72170; 80053; 81001; 85025; 93005; 99284

== ENCOUNTER 2025-05-05 07:42 | Emergency (ER) | payer MEDICARE, SELFPAY ==
[2025-05-05 07:37] VITALS: BP 123/77; PULSE 72; RESP 20; TEMP 36.4; O2SAT 100
--- NOTE | 2025-05-05 07:59 | PC.NURSE ---
Breakfast tray ordered for pt.
--- NOTE | 2025-05-05 08:12 | ED.UPPEXIN ---
HPI - Extremity Injury (Upper) General Chief Complaint: Extremity Injury, Upper Stated Complaint: left index finger bleeding Time Seen by Provider: 05/05/25 08:09 Source: patient Mode of arrival: ambulatory Limitations: no limitations History of Present Illness HPI narrative: 65 YEARS OLD MALE CAME FROM ALF BECAUSE THE STAFF NOTICED THAT STITCHES ON THE LEFT 5TH FINGER PROBABLY PULLED OUT. HISTORY OF CATATONIC SCHIZOPHRENIA, PATIENT IS NONVERBAL, DOES NOT FOLLOW COMMANDS THE LEFT 5TH FINGER LACERATION WAS SUTURED 10-21 DAYS AGO. Related Data Home Medications ?Medication ?Instructions ?Recorded ?Confirmed ?Last Taken ?Type apixaban 5 mg tablet (Eliquis) 5 mg PO BID 08/01/21 01/09/23 Unknown History atorvastatin 40 mg tablet 40 mg PO QHS 08/01/21 01/09/23 Unknown History benztropine 0.5 mg tablet 0.5 mg PO BID 08/01/21 01/09/23 Unknown History clonidine 0.2 mg/24 hr weekly 0.2 patch WEEKLY 08/01/21 01/09/23 01/05/23 History transdermal patch divalproex 500 mg tablet,delayed 500 mg PO DAILY 08/01/21 01/09/23 Unknown History release ezetimibe 10 mg tablet 10 mg QNOON 08/01/21 01/09/23 Unknown History famotidine 20 mg tablet 20 mg PO DAILY 08/01/21 01/09/23 Unknown History haloperidol 5 mg tablet 5 mg PO BID 08/01/21 01/09/23 Unknown History haloperidol 5 mg tablet 5 mg PO Q4H PRN Agitation 08/01/21 01/09/23 Unknown History lorazepam 1 mg tablet 1 mg PO QID 08/01/21 01/09/23 Unknown History metoprolol tartrate 50 mg tablet 50 mg DAILY 08/01/21 01/09/23 Unknown History nifedipine 30 mg tablet,extended 30 mg PO DAILY 08/01/21 01/09/23 Unknown History release 24 hr sertraline 50 mg tablet 75 mg PO DAILY 12/28/21 01/09/23 Unknown History cholecalciferol (vitamin D3) 125 125 mcg PO QNOON 04/01/22 01/09/23 Unknown History mcg (5,000 unit) capsule furosemide 20 mg tablet 20 mg PO DAILY 04/01/22 01/09/23 Unknown History deutetrabenazine 6 mg tablet 6 mg PO BID 01/09/23 01/09/23 Unknown History ([place]) Allergies Allergy/AdvReac Type Severity Reaction Status Date / Time No Known Allergies Allergy Verified 01/26/25 20:28 Review of Systems Review of Systems: All systems reviewed & are unremarkable except as noted in HPI and below PMFSH Past Medical History Medical History Anxiety Hypertension Hyperlipidemia Sepsis Shingles DM (diabetes mellitus) H/O: HTN (hypertension) Catatonic schizophrenia UTI (urinary tract infection) Surgical History Surgical History No history of previous surgery Family History Family History Unknown Caregiver unable to obtain copy of document Social History Social History Social History: The patient is single. Nonsmoker. No drug or alcohol. The patient lives in a fpc. Mother and father . The patient is nonverbal and was previously listed as a full code. Smoking status: Unknown if ever smoked Alcohol intake: unknown Substance use: unknown Gender identity (if verbalized by the patient): Male Spiritual care concerns: No Exam Narrative: GENERAL APPEARANCE: WELL-DEVELOPED, WELL-NOURISHED SKIN: NORMAL COLOR VASCULAR: NORMAL PERIPHERAL PULSES, NORMAL CAPILLARY REFILL. MUSCULOSKELETAL: LEFT 5TH FINGER SHOWING HEALING LACERATION ACROSS THE PALMAR SIDE OF THE PIP, GAPPING 3 MM WITH DRIED SCAB AT 1 SIDE OF THE LACERATION SHOWING SOME STITCHES COMING OUT OF IT. NEUROLOGIC: ALERT, NONCOMMUNICABLE Course Vital Signs Vital signs: Vital Signs Temperature 36.4 C 05/05/25 07:37 Pulse Rate 72 05/05/25 07:37 Respiratory Rate 20 05/05/25 07:37 Blood Pressure 123/77 05/05/25 07:37 Pulse Oximetry 100 05/05/25 07:37 Oxygen Delivery Room Air 05/05/25 07:37 Temperature 36.4 C 05/05/25 07:37 Pulse Rate 94 05/05/25 10:39 Respiratory Rate 20 05/05/25 10:39 Blood Pressure 137/93 H 05/05/25 10:39 Pulse Oximetry 94 11/20/25 10:39 Oxygen Delivery Room Air 05/05/25 07:37 Procedures Other Procedure Procedure 1: Other Procedure: LEFT FINGER SUTURE REMOVAL X3, THE LACERATION LOOKS IN HEALING PROCESS, NO SIGNS OF INFECTION, PATIENT TOLERATED THE PROCEDURE WELL MDM - Extremity Injury (Upper) MDM Narrative Medical decision making narrative: HIS CM LIKE THE PATIENT HAD SUTURED LACERATION AT THE PALMAR SIDE OF THE LEFT 5TH FINGER 10-21 DAYS AGO, AND THE SUTURE WAS DISCONNECTED DAYS AGO, AND THE LACERATION HEALED WITH SECONDARY INTENTION. NO SIGNS OF INFECTION. I WAS ABLE TO REMOVE 3 SUTURES WITHOUT ANY COMPLICATION. Differential Diagnosis Differential diagnosis: Likely other (LACERATION WITH AND STITCHES) Critical Care Time Critical Care Time Critical Care Time: No Restraint Face to Face Eval ED Reason for Restraint Aggressive/Violent Evaluation Findings Date Seen by EDP: 05/05/25 Time Seen by EDP: 08:28 Pt's immediate situation:: HISTORY OF CATATONIC SCHIZOPHRENIA, DOES NOT FOLLOW VERBAL COMMANDS, DANGEROUS TO HIMSELF AND TO THE STAFF. Pt's reaction to intervention:: PATIENT WAS CALM, NOT AGITATED, DOES NOT FIGHT THE RESTRAIN. Pt's med/behavioral condition:: STABLE, COMFORTABLE NOT IN ANY PAIN OR DISTRESS Restraint or Seclusion Need Need to continue or terminate:: DISCONTINUE RESTRAIN AT 10:50 A.M. Discharge Plan Discharge Clinical Impression: Wound, open, finger Patient Disposition: [place] [facility]Asst Living Condition: Improved Instructions: Stitches Removal (ED) Additional Instructions: RETURN IF SYMPTOMS ARE WORSENING , CALL YOUR FAMILY PHYSICIAN FOR APPOINTMENT, TAKE TYLENOL NEEDED FOR ACHES AND PAIN, CONTINUE HOME MEDICATIONS. NEOSPORIN TOPICAL T.I.D. FOR 3 DAYS Patient Language: Icelandic Prescriptions: No Action atorvastatin 40 mg tablet 40 mg PO QHS Rx Instructions: at bedtime benztropine 0.5 mg tablet 0.5 mg PO BID clonidine 0.2 mg/24 hr patch weekly 0.2 patch WEEKLY Rx Instructions: change on friday divalproex 500 mg tablet,delayed release (DR/EC) 500 mg PO DAILY ezetimibe 10 mg tablet 10 mg QNOON famotidine 20 mg tablet 20 mg PO DAILY metoprolol tartrate 50 mg tablet 50 mg DAILY nifedipine 30 mg tablet extended release 24 hr 30 mg PO DAILY Eliquis 5 mg tablet 5 mg PO BID haloperidol 5 mg tablet 5 mg PO BID lorazepam 1 mg tablet 1 mg PO QID haloperidol 5 mg tablet 5 mg PO Q4H PRN (Reason: Agitation) sertraline 50 mg Tablet 75 mg PO DAILY [place]edo 6 mg Tablet 6 mg PO BID furosemide 20 mg Tablet 20 mg PO DAILY cholecalciferol (vitamin D3) 125 mcg (5,000 unit) Capsule 125 mcg PO QNOON Follow-up/Referrals: PHYSICIAN,SAIL FINISHER MACHINE [Primary Care Provider, Internal Medicine]
--- NOTE | 2025-05-05 10:16 | PC.NURSE ---
Talked with [facility] RN. Pt has had stitches for at least 10-14 days
[2025-05-05 10:39] VITALS: BP 137/93; PULSE 94; RESP 20; O2SAT 94
== END 2025-05-05 11:41 ==
PROVIDERS: Emergency Provider Emergency Medicine
DX: S61.217D Laceration without foreign body of left little finger without damage to nail, subsequent encounter (principal); F20.2 Catatonic schizophrenia; I10 Essential (primary) hypertension; F41.9 Anxiety disorder, unspecified; E78.5 Hyperlipidemia, unspecified; E11.9 Type 2 diabetes mellitus without complications; Z87.440 Personal history of urinary (tract) infections; Z79.899 Other long term (current) drug therapy; Z79.01 Long term (current) use of anticoagulants; X58.XXXD Exposure to other specified factors, subsequent encounter
CPT/HCPCS: 15853; 99282